=== PATIENT | male | born 1945 | race Caucasian/White ===

== ENCOUNTER 2020-11-11 08:47 | Outpatient (CLI) | payer OTHER, SELFPAY ==
[2020-11-11 09:27] VITALS: BMI 25.7
--- NOTE | 2020-11-11 09:38 | ECG_ITS ---
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 Interpretive Statements NAME OF STUDY: DOBUTAMINE SESTAMIBI STRESS TEST INDICATION: Shortness of Breath, PROCEDURE: At the baseline, the blood pressure was 149/51 with a heart rate of 96. The electrocardiogram showed normal sinus rhythm with a poor R wave progression. Normal ST Ts. The dobutamine was infused over a period of 6 minutes and 22 seconds. The maximum heart rate obtained was 132 (91% of the maximum predicted heart rate). The blood pressure at that time was 142/58 mmHg. The patient did not have any chest pain or any significant electrocardiogram changes with the dobutamine infusion. The physical examination remained unchanged. No arrhythmias were seen on the monitor. The sestamibi was injected at the peak heart rate. During the recovery phase, the patient did not have any specific symptoms. The blood pressure at the end of the recovery phase was 132/78 with a heart rate of 83 per minute. CONCLUSION: 1. Normal EKG response to be doing fusion 2. No diabetes induced chest pain or cardiac arrhythmia 3. Appropriate blood pressure and heart rate response to dobutamine infusion 4. Sestamibi/Sestamibi perfusion scan pending; see separate report. Electronically Signed On 11-13-2020 0:31:32 CDT by Jaycob Ramos M.D. [id number]
--- NOTE | 2020-11-11 09:38 | NMCV_ITS ---
NM tom perf SPECT r/s* [id number] Gamal Forrester Age: 75 Gender: M : 1945 Exam Date: 11/11/2020 10:22 Ordering Phys: Jaycob Ramos MD ([email or web address]) Technologist: KAYLEY Nelson Exam Location: [facility] Indications: SHORTNESS OF BREATH STRESS TEST Please see separate stress test report in [facility]any for full findings IMAGE PROTOCOL Rest/Stress 1 Dobutamine Day Radiopharmaceutical Dose (mCi) Administration Site Administered by Rest: Tc-99m 10.7 IV KAYLEY Melton Sestamibi Stress:Tc-99m 32.4 IV KAYLEY Melton Sestamibi Rest: 11-Nov-2020 60 Discovery 630 Stress: 11-Nov-2020 30 Discovery 630 Radiopharmaceutical was injected at 86 % maximum heart rate. Supine position only as patient was unable to lay prone. SPECT RESULTS Technical Quality: Good Raw Data Analysis: Normal, breathing motion Image Corrections: Patient motion artifact - motion correction applied to rest and stress images. Summed Stress Score: 8 Summed Rest Score: 8 Summed Difference Score: 1 PERFUSION FINDINGS Moderate area of moderate decreases uptake in the mid and apical inferior, inferoseptal, apical septal and LV apex. No significant reversibility was noted in these regions. FUNCTIONAL RESULTS (calculated via Gated SPECT) Stress Image LV EF (%): 61 Stress EDV (mL):72 TID: 1.23 Stress ESV (mL):28 FUNCTIONAL FINDINGS: Segmental wall motion analysis revealing no gross wall motion normalities. Elevated transient ischemic dilatation ratio of 1.23. IMPRESSIONS 1. Myocardial perfusion imaging revealing moderate area of persistent decreased tracer uptake in the inferior, inferoseptal and apical regions suggestive of myocardial scarring versus attenuation artifact. 2. Normal LV ejection fraction of 61%. 3. LV wall motion analysis revealing no gross wall motion normalities. 4. Normal LV volume. 5. Elevated transient ischemic dilatation ratio may suggest endocardial ischemia. However the positive predictive value of this finding is limited. Clinical correlation recommended. No similar previous studies are available for comparison Dr Jaycob Ramos MD [facility] (Electronically Signed) Final Date: 11 November 2020 16:48 S
[2020-11-11] MEDS: DOBUTtamine 200 MG in sodium chloride 0.9% 34 ML 13 MG IV (11:49)
--- NOTE | 2020-11-11 11:56 | USCV_ITS ---
Gamal Forrester Age: 75 Gender: M : 1945 Exam Date: 11/11/2020 12:52 Ordering Phys: Jaycob Ramos MD ([email or web address]) Technologist: JOYCE Exam Location: [facility] Indication: SOB BP: 171 / 102 HR: 60 Rhythm: Sinus Technical Quality: Technically difficult study MEASUREMENTS (Male / Female) Normal Values 2D ECHO LV Diastolic Diameter PLAX 3.7 cm 4.2 - 5.9 / 3.9 - 5.3 cm LV Systolic Diameter PLAX 2.6 cm IVS Diastolic Thickness 0.8 cm 0.6 - 1.0 / 0.6 - 0.9 cm IVS Systolic Thickness 1.2 cm LVPW Diastolic Thickness 1.0 cm 0.6 - 1.0 / 0.6 - 0.9 cm LVPW Systolic Thickness 1.5 cm LVOT Diameter 2.0 cm LV Ejection Fraction 2D Teich 58.0 % LV Ejection Fraction MOD 2C 47.7 % LV Ejection Fraction 2C AL 48.7 % LA Width 3.7 cm LA Height 3.3 cm RA Width 4.0 cm RA Height 4.0 cm Aorta at Sinotubular Diameter 2.6 cm DOPPLER AV Peak Velocity 93.0 cm/s LVOT Peak Velocity 68.0 cm/s AV Area Cont Eq vti 2.4 cm squared AV Area Cont Eq pk 2.4 cm squared MV Peak Velocity 606.0 cm/s MV Area PHT 4.3 cm squared Mitral E to A Ratio 0.8 MV E' Velocity 35.0 cm/s Mitral E to MV E' Ratio 6.7 Mitral E to LV E' Lateral Ratio 6.0 Mitral E to LV E' Septal Ratio 7.7 TR Peak Velocity 119.3 cm/s TR Peak Gradient 5.7 mmHg Right Atrial Pressure 3.0 mmHg Pulmonary Artery Systolic Pressu 8.7 mmHg PV Peak Velocity 58.0 cm/s FINDINGS Left Ventricle Normal in size with diminished ejection fraction of 48%. mild diffuse hypokinesia of the LV apex.Grade I/IV diastolic dysfunction (abnormal relaxation filling pattern), normal to mildly elevated filling pressures. Right Ventricle The right ventricle is normal in size and function. Right Atrium The right atrium is normal in size. Left Atrium The left atrium is normal in size. Mitral Valve Thickened mitral valve. Trace mitral valve regurgitation. Aortic Valve No gross abnormalities noted Tricuspid Valve No gross abnormalities noted Pulmonic Valve Pulmonic valve not well visualized. Pericardium Normal pericardium without effusion. Aorta Normal ascending aorta dimension. CONCLUSIONS Normal in size with diminished ejection fraction of 48%. mild diffuse hypokinesia of the LV apex. Grade I/IV diastolic dysfunction (abnormal relaxation filling pattern), normal to mildly elevated filling pressures. Thickened mitral valve. Trace mitral valve regurgitation. There is no pericardial effusion. There are no intracardiac masses. No previous study is available for comparison. Dr Jaycob Ramos MD [facility] (Electronically Signed) Final Date: 11 November 2020 23:41 S
[2020-11-11] MEDS: metoprolol tartrate 1 mg/1 mL SDV 5 mL 5 MG IV (12:01)
[2020-11-11 12:19] VITALS: BP 132/78; PULSE 84
== END 2020-11-11 08:48 | disposition home or self-care (01) ==
PROVIDERS: PCP Family Medicine; Visit Provider Internal Medicine Cardiovascular Disease
DX: R06.02 Shortness of breath (principal); I05.9 Rheumatic mitral valve disease, unspecified
CPT/HCPCS: 78452; 93017; 93306; A9500; J1250; J3490; J7050

== ENCOUNTER → 2020-12-08 14:49 | Outpatient (BNVA) | payer OTHER, SELFPAY | PROVIDERS: PCP Family Medicine; Visit Provider Internal Medicine Cardiovascular Disease | DX: R06.02 Shortness of breath (principal); N18.9 Chronic kidney disease, unspecified; I50.33 Acute on chronic diastolic (congestive) heart failure; Z79.01 Long term (current) use of anticoagulants; E78.2 Mixed hyperlipidemia; I13.0 Hypertensive heart and chronic kidney disease with heart failure and stage 1 through stage 4 chronic kidney disease, or unspecified chronic kidney disease | CPT/HCPCS: 80048; 83880; 84443; 85025 ==

== ENCOUNTER 2021-01-29 01:23 | Inpatient (IN) | payer OTHER, MEDICARE, SELFPAY ==
[2021-01-29] VITALS (36 sets, daily range): BP systolic 78–173; BP diastolic 55–138; PULSE 89–160; RESP 12–40; TEMP 36.5–36.6; O2SAT 90–100; BMI 23.0; BMI 25.1
--- NOTE | 2021-01-29 01:25 | ECG_ITS ---
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 Measurements Intervals [place] Rate: 143 P: 79 MD: 130 QRS: 78 QRSD: 93 T: 76 QT: 286 QTc: 441 Interpretive Statements SINUS TACHYCARDIA No previous ECG available for comparison Electronically Signed On 01-29-2021 19:47:34 CARPENTER MATE by Tree Couch M.D. [id number]
--- NOTE | 2021-01-29 01:25 | XRR_ITS ---
PROCEDURE INFORMATION: Exam: XR Chest Exam date and time: 01/29/2021 1:25 AM Age: 75 years old Clinical indication: Cough and shortness of breath and tachypnea; Patient HX: Resp distress. History of copd. On bipap. ; Additional info: SOB TECHNIQUE: Imaging protocol: XR of the chest. Views: 1 view. COMPARISON: CR Chest 2 views* [id number] 08/04/2018 3:56 PM FINDINGS: Lungs: There is a background of emphysema and pulmonary fibrosis. There are patchy opacities present in the right hemithorax peripherally and some increased linear opacities present in the lower hemithoraces, findings that could represent a superimposed interstitial pneumonia. Pleural spaces: Unremarkable. No pleural effusion. No pneumothorax. Heart/Mediastinum: Unremarkable. No cardiomegaly. Bones/joints: Unremarkable. XR/XR chest 1V portable [id number] IMPRESSION: 1. There is a background of emphysema and pulmonary fibrosis. 2. There are increased patchy opacity seen in the right hemithorax peripherally and within the lower hemithoraces, findings that could represent a superimposed interstitial pneumonia. Radiation Dose CTDIVOL = (mGy): DLP = (mGy-cm)
--- NOTE | 2021-01-29 01:27 | W.ED.SOB ---
HPI - SOB/Dyspnea General: Chief Complaint: Shortness of Breath/Dyspnea Stated Complaint: SOB Time Seen by Provider: 01/29/21 01:25 Source: patient and EMS Mode of arrival: EMS Limitations: no limitations History of Present Illness: HPI Narrative: Is a history of COPD along with congestive heart failure comes in by EMS for respiratory distress. He has been out of some of his medications he is unsure what. Patient here is in severe distress with tachypnea wheezing. Patient is currently on a nonrebreather will switch him over to BiPAP. He is able to speak in 2-3 word sentences due to distress he denies any cough or fever denies any chest pain. No vomiting diarrhea denies any worsening improving factors he got Solu-Medrol and breathing treatments in route with minimal improvement. Associated symptoms: Deny abdominal pain, chest pain, fever(s), nausea or vomiting Review of Systems Const: Denies: fever(s), chills, body aches or change in appetite Eyes: Denies: blurry vision or eye discomfort ENMT: Denies: throat pain or dental pain Card: Denies: chest pain Resp: Reports: dyspnea and non-productive cough GI: Denies: abdominal pain, nausea, vomiting or diarrhea : Denies: dysuria Musc: Denies: neck pain or back pain Skin/Breast: Denies: rash Neuro: Denies: headache(s) Psych: Denies: depression Philipp/Lymph: Denies: easy bruising All/Imm: Denies: urticaria PFSH ED PFSH: Medical History Bipolar 1 disorder Chest pain Chronic obstructive pulmonary disease Dependence on supplemental oxygen Erectile dysfunction HTN (hypertension) Hyperlipidemia ARPIT (obstructive sleep apnea) Painful ejaculation Scrotal pain Sleep apnea Tachycardia Surgical History Hx of appendectomy Family History Mother , AT AGE 64 Cancer Diabetes Grandfather Diabetes Father , AT AGE 94 Lung disease Social History Quit status (tobacco): has quit using tobacco Year quit tobacco: 2002 Former quit date comment: Hx of 2 PPD x 50 Years Smoking risk assessment/counseling performed?: No Alcohol intake: former Counseling given: No Counseling given: No Lives independently: Yes Marital status: / service: Yes Current occupational status: retired History of recent travel: No Physical Exam Const: COMMON NORMALS: patient oriented x3 GENERAL APPEARANCE: in distress and ill appearing HENMT: COMMON NORMALS: normocephalic and atraumatic HEAD & SCALP: normocephalic and atraumatic Eye: COMMON NORMALS: Equal, round and reactive pupils present and EOMs intact bilaterally PUPIL: Yes Equal, round and reactive pupils present Neck/C-Spine: COMMON NORMALS: full ROM and supple Chest: COMMONS NORMALS: normal inspection of the chest and normal palpation of entire chest wall Resp: EFFORT & INSPECTION: Yes tachypneic and Yes respiratory distress AUSCULTATION: wheezes Cardio: COMMON NORMALS: regular rhythm and No murmurs present (Cardio) RATE: tachycardic RHYTHM: regular rhythm GI: COMMON NORMALS: Normal to inspection, nondistended, normoactive bowel sounds present, Soft to palpation, non-tender and no masses PALPATION: Yes Soft to palpation Extremity: COMMON NORMALS: normal to inspection and full ROM Neuro: COMMON NORMALS: patient oriented x3, moves all extremities and no focal motor deficits Psych: COMMON NORMALS: mental status grossly normal, Normal thought process present and cooperative THOUGHT PROCESS: Normal thought process present Skin: COMMON NORMALS: no rashes or lesions noted and no wounds GENERAL SKIN EXAM: no rashes or lesions noted Course Vital Signs: Vital signs: Vital Signs Temperature 97.8 F 01/29/21 01:28 Pulse Rate 140 H 01/29/21 02:03 Respiratory Rate 30 H 01/29/21 02:03 Blood Pressure 103/57 01/29/21 02:31 Pulse Oximetry 94 01/29/21 02:03 MDM - SOB/Dyspnea MDM Narrative: Medical decision making narrative: Patient presents here with shortness of breath distress. Patient also septic his blood pressure is improved. Heart rate improved as well lactate here is normal he does have a pneumonia and he is improved on BiPAP start patient antibiotics I spoke to the hospitalist will admit. No signs of pulmonary embolism. Lab Data: Labs: Lab Results 01/29/21 01/29/21 01/29/21 01:35 01:35 01:35 WBC 17.1 10^3/uL H 10 ^3/uL (4.0-10.0) RBC 4.11 10^6/uL 10^6 /uL (4.1-5.3) Hgb 12.8 g/dL g/dL (11.7-16.6) Hct 39.3 % L % (42.0-52.0) MCV 95.6 fl H fl (80-94) MCH 31.1 pg pg (28.0-34.0) MCHC 32.6 g/dL g/dL (30.0-36.0) RDW 11.8 % L % (12.1-15.1) Plt Count 333 10^3/cmm 10^3 /cmm (130-400) MPV 9.3 fL fL (7.4-10.4) Neut % (Auto) 67.6 % % Lymph % (Auto) 18.2 % % Burnett % (Auto) 11.9 % % Eos % (Auto) 1.1 % % Baso % (Auto) 0.4 % % Neut # (Auto) 11.57 10^3/uL H 1 0^3/uL (1.8-7.7) Lymph # (Auto) 3.1 10^3/uL 10^3/ uL (0.8-4.8) Burnett # (Auto) 2.0 10^3/uL H 10^ 3/uL (0.2-0.9) Eos # (Auto) 0.2 10^3/uL 10^3/ uL (0.0-0.8) Baso # (Auto) 0.1 10^3/uL 10^3/ uL (0.0-0.1) Nucleated RBC % (a uto) 0 % % Nucleated RBCs # 0.0 /100WBC /100W BC PT 14.60 SECONDS SEC ONDS (12.1-14.9) INR 1.11 (0.8-1.2) D-Dimer Specimen Type Sample Site ABG pH ABG pCO2 ABG pO2 ABG HCO3 ABG Base Excess Jaxson Test Hematocrit Hgb O2 Saturation Carboxyhemoglobin Methemoglobin Total Hemoglobin O2 Delivery Device FiO2 PEEP Provisioning Analyst ID Sodium 136 mmol/L mmol/L (136-145) Potassium 4.8 mmol/L mmol/L (3.5-5.1) Chloride 94 mmol/L L mmol/ L (98-107) Carbon Dioxide 23 mmol/L mmol/L (22-29) Anion Gap 23.8 H (5-19) BUN 16 mg/dL mg/dL (8-23) Creatinine 1.0 mg/dL mg/dL (0.7-1.2) GFR Calculation Not Reportable Glucose 133 mg/dL H mg/dL (65-115) Calculated Osmolal ity 285 mOsm/kg mOsm/ kg (285-295) Lactic Acid Calcium 9.1 mg/dL mg/dL (8.5-10.5) Total Bilirubin 0.4 mg/dL mg/dL (0.15-1.2) AST 18 U/L U/L (0-40) ALT 12 U/L U/L (0-41) Alkaline Phosphata se 107 IU/L IU/L (40-130) Troponin T Baselin e NT-Pro-B Natriuret Pep 209 pg/mL pg/mL (0-450) Total Protein 8.0 g/dL g/dL (6.6-8.7) Albumin 3.8 g/dL g/dL (3.5-5.2) Globulin 4.2 g/dL g/dL (1.3-4.6) SARS-CoV-2 Ag (Rap id) 01/29/21 01/29/21 01/29/21 01:35 01:35 01:35 WBC RBC Hgb Hct MCV MCH MCHC RDW Plt Count MPV Neut % (Auto) Lymph % (Auto) Burnett % (Auto) Eos % (Auto) Baso % (Auto) Neut # (Auto) Lymph # (Auto) Burnett # (Auto) Eos # (Auto) Baso # (Auto) Nucleated RBC % (a uto) Nucleated RBCs # PT INR D-Dimer 3.17 ug/mIFEU H u g/mIFEU (0-0.59) Specimen Type Sample Site ABG pH ABG pCO2 ABG pO2 ABG HCO3 ABG Base Excess Jaxson Test Hematocrit Hgb O2 Saturation Carboxyhemoglobin Methemoglobin Total Hemoglobin O2 Delivery Device FiO2 PEEP Provisioning Analyst ID Sodium Potassium Chloride Carbon Dioxide Anion Gap BUN Creatinine GFR Calculation Glucose Calculated Osmolal ity Lactic Acid 1.5 mmol/L mmol/L (0.5-2.2) Calcium Total Bilirubin AST ALT Alkaline Phosphata se Troponin T Baselin e 24 ng/L H ng/L (0-15) NT-Pro-B Natriuret Pep Total Protein Albumin Globulin SARS-CoV-2 Ag (Rap id) 01/29/21 01/29/21 01:37 01:50 WBC RBC Hgb Hct MCV MCH MCHC RDW Plt Count MPV Neut % (Auto) Lymph % (Auto) Burnett % (Auto) Eos % (Auto) Baso % (Auto) Neut # (Auto) Lymph # (Auto) Burnett # (Auto) Eos # (Auto) Baso # (Auto) Nucleated RBC % (a uto) Nucleated RBCs # PT INR D-Dimer Specimen Type Arterial Sample Site Radial, left ABG pH 7.37 (7.35-7.45) ABG pCO2 38.3 mmHg mmHg (35-45) ABG pO2 289.0 mmHg H mmHg (80.0-100.0) ABG HCO3 22.2 mmol/L mmol/ L (22-26) ABG Base Excess -2.7 mmol/L L mmo l/L (-2.0-2.0) Jaxson Test Pos Hematocrit 43.3 % % (42-52) Hgb O2 Saturation 98.5 % % (95-100) Carboxyhemoglobin 0.4 %THgb %THgb (0.4-20.1) Methemoglobin 1.0 % % (0.4-1.5) Total Hemoglobin 14.1 g/dL g/dL (14-18) O2 Delivery Device Bipap FiO2 70.0 % % PEEP 8.0 cmH20 cmH20 Provisioning Analyst ID [email or web address] Sodium Potassium Chloride Carbon Dioxide Anion Gap BUN Creatinine GFR Calculation Glucose Calculated Osmolal ity Lactic Acid Calcium Total Bilirubin AST ALT Alkaline Phosphata se Troponin T Baselin e NT-Pro-B Natriuret Pep Total Protein Albumin Globulin SARS-CoV-2 Ag (Rap id) Negative (Negative) Imaging Data^: CT Chest: Attestation: I personally reviewed and interpreted this imaging study as follows: Radiologist's impression: [address] [address] [address] Scan Report Signed Patient: Gamal Forrester Unit #: [id number] : 1945 Age/Sex: 75 / M ADM Date: 01/29/21 Loc: ER Room/Bed: Attending Dr: Ordering Provider/Ordering MD: Romain Yan MD Date of Service: 01/29/21 Procedure(s): CT angio chest PE protcl [id number] Accession Number(s): [id number] Report Number: [id number] PROCEDURE INFORMATION: Exam: CTA Chest With Contrast Exam date and time: 01/29/2021 2:35 AM Age: 75 years old Clinical indication: Cough and dyspnea and shortness of breath; Patient HX: Cough with SOB and dyspnea. Elevated d dimer. History of copd. Best exam obtained due to patient unable to bring arms above sfov and difficulty following breathing instructions. TECHNIQUE: Imaging protocol: Computed tomographic angiography of the chest with contrast. 3D rendering (Not supervised by radiologist): MIP and/or 3D reconstructed images were created by the technologist. Radiation optimization: All CT scans at this facility use at least one of these dose optimization techniques: automated exposure control; mA and/or kV adjustment per patient size (includes targeted exams where dose is matched to clinical indication); or iterative reconstruction. Contrast material: OMNI 350; Contrast volume: 65 ml; Contrast route: INTRAVENOUS (IV); COMPARISON: CR (CHEST, ) 01/29/2021 1:33 AM RADIATION DOSE METRICS: Total DLP (mGy-cm): 778.77 FINDINGS: Pulmonary arteries: Normal. No pulmonary emboli. Aorta: Calcifications are seen within the thoracic and abdominal aorta. Lungs: A 6 mm calcified granuloma seen in the left lower lobe anteriorly. There is a background of centrilobular emphysema and mild pulmonary fibrosis. There are patchy opacity seen at the periphery of the right upper lobe, findings that may represent right upper lobe pneumonia. Pleural spaces: Unremarkable. No pneumothorax. No pleural effusion. Heart: Unremarkable. No cardiomegaly. No pericardial effusion. Lymph nodes: Unremarkable. No enlarged lymph nodes. Gallbladder and bile ducts: The hyperdensities are seen within the gallbladder neck possibly representing tiny gallstones or gallbladder sludge. Kidneys and ureters: A hypoattenuation cystic mass seen on the posterior aspect of the left kidney measuring 3.2 cm. There is a 3.2 mm nonobstructing left renal calculus seen in the lower pole. Bones/joints: Unremarkable. No acute fracture. Soft tissues: Unremarkable. CT/CT angio chest PE protcl [id number] IMPRESSION: 1. Background of centrilobular emphysema and mild pulmonary fibrosis. Patchy peripheral opacities are seen in the right upper lobe, findings suggesting a right upper lobe pneumonia. 2. Calcified 6 mm granuloma in the left lower lobe. 3. Nonobstructing 3.2 mm left renal calculus. 4. Benign cyst of the left kidney measuring 3.2 cm. No further workup needed. 5. Hyperdense material seen in the gallbladder neck may represent tiny gallstones or gallbladder sludge. COMMENTS: Consistent with the [employer]'s Incidental Findings Committee white paper (J Am Triston Radiol 2018): Any incidental renal lesion less than 1 cm or classified as too small to characterize, or any incidental cystic renal lesion characterized as simple-appearing, is likely benign. No follow-up imaging is recommended for these lesions per consensus recommendations based on imaging criteria. Radiation Dose CTDIVOL = (mGy): DLP = 778.77 (mGy-cm) Dictated By: Donny Schmitt MD Signed By: Donny Schmitt MD Signed Date/Time: 01/29/21 0418 DD/ EKG Data^: EKG 1: Attestation: I personally reviewed and interpreted this EKG as follows: EKG Interpretation Date: 02/24/21 EKG interpretation time: 01:49 Interpretation: sinus tch hr [address] or t wave abnormalities qrs 93qtc 369 Discharge Plan Discharge Patient Disposition: Admitted As Inpatient Clinical Impression: Community acquired pneumonia Qualifiers: Laterality: right Lung location: unspecified part of lung Qualified Code(s): J18.9 - Pneumonia, unspecified organism Condition: Stable Coding Level of Care Code ED Manager Vehicle for Chg Fwd Exam Comprehensive
[2021-01-29 01:41] LABS: Basophils # 0.1 10^3/uL (0.0-0.1); Basophils % 0.4 %; Eosinophils # 0.2 10^3/uL (0.0-0.8); Eosinophils % 1.1 %; Hematocrit 39.3 % (42.0-52.0); Hemoglobin 12.8 g/dL (11.7-16.6); Lymphocytes # 3.1 10^3/uL (0.8-4.8); Lymphocytes % 18.2 %; Mean Corpuscular HGB Conc 32.6 g/dL (30.0-36.0); Mean Corpuscular Hemoglobin 31.1 pg (28.0-34.0); Mean Corpuscular Volume 95.6 fl (80-94); Mean Platelet Volume 9.3 fL (7.4-10.4); Monocytes % 11.9 %; Neutrophils # 11.57 10^3/uL (1.8-7.7); Neutrophils % 67.6 %; Nucleated Red Blood Cells % 0 %; Platelet Count 333 10^3/cmm (130-400); Red Blood Count 4.11 10^6/uL (4.1-5.3); Red Cell Distribution Width 11.8 % (12.1-15.1); White Blood Count 17.1 10^3/uL (4.0-10.0)
[2021-01-29 01:48] LABS: ABG PCO2 38.3 mmHg (35-45); ABG PH Result 7.37 (7.35-7.45); Arterial Blood Gas Hematocrit 43.3 % (42-52); Base Excess ABG -2.7 mmol/L (-2.0-2.0); Blood Gas Allen Test Pos; Blood Gas Sample Type Arterial; Carboxyhemoglobin 0.4 %THgb (0.4-20.1); HCO3 ABG 22.2 mmol/L (22-26); HGB O2 Sat 98.5 % (95-100); Total Hemoglobin 14.1 g/dL (14-18)
[2021-01-29 01:50] LABS: Blood Gas Sample Site Radial, left; Oxygen Device BIPAP
[2021-01-29 01:55] LABS: INR 1.11 (0.8-1.2)
[2021-01-29 02:15] LABS: Alanine Aminotransferase 12 U/L (0-41); Albumin Level 3.8 g/dL (3.5-5.2); Alkaline Phosphatase 107 IU/L (40-130); Anion Gap 23.8 (5-19); Aspartate Amino Transferase 18 U/L (0-40); Blood Urea Nitrogen 16 mg/dL (8-23); Calcium 9.1 mg/dL (8.5-10.5); Carbon Dioxide 23 mmol/L (22-29); Chloride 94 mmol/L (98-107); Globulin 4.2 g/dL (1.3-4.6); Glucose 133 mg/dL (65-115); NT Pro B Type Natriuretic Pept 209 pg/mL (0-450); Osmolality Calculated 285 mOsm/kg (285-295); Potassium 4.8 mmol/L (3.5-5.1); Sodium 136 mmol/L (136-145); Total Bilirubin 0.4 mg/dL (0.15-1.2)
[2021-01-29] MEDS: sodium chloride 0.9% 1,000 ML 999 ML IV ×2 (02:22→03:15)
--- NOTE | 2021-01-29 02:26 | ECG_ITS ---
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 Measurements Intervals [place] Rate: 114 P: 76 NH: 128 QRS: 66 QRSD: 93 T: 77 QT: 319 QTc: 440 Interpretive Statements SINUS TACHYCARDIA ABNORMAL RHYTHM ECG Compared to ECG 01/29/2021 01:49:32 No significant changes Electronically Signed On 01-29-2021 19:46:25 TANNERY GUMMER by Tree Couch M.D. [email or web address] hospital for women [email or web address] infantsMarquitrihealth good samaritan hospitalIschemia Care/store/OM/[id number]
[2021-01-29 02:27] LABS: D Dimer 3.17 ug/mIFEU (0-0.59)
[2021-01-29 02:34] LABS: Lactic Sepsis W/Reflex 1.5 mmol/L (0.5-2.2)
[2021-01-29 02:34] LABS: SARS Covid-2 Antigen Negative (Negative)
--- NOTE | 2021-01-29 02:35 | CTR_ITS ---
PROCEDURE INFORMATION: Exam: CTA Chest With Contrast Exam date and time: 01/29/2021 2:35 AM Age: 75 years old Clinical indication: Cough and dyspnea and shortness of breath; Patient HX: Cough with SOB and dyspnea. Elevated d dimer. History of copd. Best exam obtained due to patient unable to bring arms above sfov and difficulty following breathing instructions. TECHNIQUE: Imaging protocol: Computed tomographic angiography of the chest with contrast. 3D rendering (Not supervised by radiologist): MIP and/or 3D reconstructed images were created by the technologist. Radiation optimization: All CT scans at this facility use at least one of these dose optimization techniques: automated exposure control; mA and/or kV adjustment per patient size (includes targeted exams where dose is matched to clinical indication); or iterative reconstruction. Contrast material: OMNI 350; Contrast volume: 65 ml; Contrast route: INTRAVENOUS (IV); COMPARISON: CR (CHEST, ) 01/29/2021 1:33 AM RADIATION DOSE METRICS: Total DLP (mGy-cm): 778.77 FINDINGS: Pulmonary arteries: Normal. No pulmonary emboli. Aorta: Calcifications are seen within the thoracic and abdominal aorta. Lungs: A 6 mm calcified granuloma seen in the left lower lobe anteriorly. There is a background of centrilobular emphysema and mild pulmonary fibrosis. There are patchy opacity seen at the periphery of the right upper lobe, findings that may represent right upper lobe pneumonia. Pleural spaces: Unremarkable. No pneumothorax. No pleural effusion. Heart: Unremarkable. No cardiomegaly. No pericardial effusion. Lymph nodes: Unremarkable. No enlarged lymph nodes. Gallbladder and bile ducts: The hyperdensities are seen within the gallbladder neck possibly representing tiny gallstones or gallbladder sludge. Kidneys and ureters: A hypoattenuation cystic mass seen on the posterior aspect of the left kidney measuring 3.2 cm. There is a 3.2 mm nonobstructing left renal calculus seen in the lower pole. Bones/joints: Unremarkable. No acute fracture. Soft tissues: Unremarkable. CT/CT angio chest PE protcl [id number] IMPRESSION: 1. Background of centrilobular emphysema and mild pulmonary fibrosis. Patchy peripheral opacities are seen in the right upper lobe, findings suggesting a right upper lobe pneumonia. 2. Calcified 6 mm granuloma in the left lower lobe. 3. Nonobstructing 3.2 mm left renal calculus. 4. Benign cyst of the left kidney measuring 3.2 cm. No further workup needed. 5. Hyperdense material seen in the gallbladder neck may represent tiny gallstones or gallbladder sludge. COMMENTS: Consistent with the [employer]'s Incidental Findings Committee white paper (J Am Triston Radiol 2018): Any incidental renal lesion less than 1 cm or classified as too small to characterize, or any incidental cystic renal lesion characterized as simple-appearing, is likely benign. No follow-up imaging is recommended for these lesions per consensus recommendations based on imaging criteria. Radiation Dose CTDIVOL = (mGy): DLP = 778.77 (mGy-cm)
[2021-01-29 02:49] LABS: Troponin(5th) Baseline 24 ng/L (0-15)
[2021-01-29] MEDS: piperacillin-tazobactam 3.375 GM in sodium chloride 0.9% (plus) 50 ML IV ×3 (03:16→20:48)
[2021-01-29] MEDS: iohexol 350 mg/mL 100 mL Btl IV (04:03)
[2021-01-29] MEDS: vancomycin 1,000 MG in sodium chloride 0.9% 250 ML 250 MG IV (04:06)
[2021-01-29 04:42] LABS: Troponin 5 2HR 107.8 ng/L (0-15); Troponin 5 2HR Delta 83.8 ABS# (0-10)
[2021-01-29] MEDS: enoxaparin 80 mg/0.8 mL Syringe 70 MG SUBCUT ×2 (05:00→17:47)
[2021-01-29] MEDS: sodium chloride 0.9% 500 ML 999 ML IV (05:00)
--- NOTE | 2021-01-29 05:14 | P.HP_ITS ---
Providers/Chief Complaint Primary Care Provider: Willow Plasencia MD Chief Complaint: SOB History of Present Illness Gamal Forrester is a 75 year old male with past medical history of COPD, interstitial lung disease/fibrosis, CHF, hypertension, sleep apnea who is presenting to emergency room with complaints of increased shortness of breath, cough productive with yellow mucus for last several days, progressively worsening. He describes his symptoms as severe. Not sure about fever. Denies chills. No nausea or vomiting. Reports similar episodes in the past. The patient is found to have a right upper lobe pneumonia. Due to significant respiratory distress and hypoxia the patient is started on BiPAP. Reports some improvement. On review of systems also he reports rash covering his chest and abdomen. It is not itchy or painful. No diarrhea or dysuria. Covid test is negative Review of Systems General: Reports: 10 or more systems reviewed and unremarkable except in HPI and below Medications/Allergies Home Medications Medication Instructions Recorded Confirmed Last Taken Type albuterol (refill) 90 mcg INHALATION .PRN 08/19/19 11/03/20 Unknown History mcg/actuation aerosol inhaler omega 8-glm-tsp-fish oil 1,000 mg 1 cap PO DAILY 08/19/19 11/03/20 Unknown History (120 mg-180 mg) capsule atorvastatin 40 mg tablet 40 mg PO DAILY 09/15/20 11/03/20 Unknown History carbamazepine 200 mg tablet 600 mg PO BID tab 09/15/20 11/03/20 Unknown History lisinopril 40 mg tablet 20 mg PO DAILY tab 09/15/20 11/03/20 Unknown History tiotropium 2.5 mcg-olodaterol 2.5 2 puff INHALATION DAILY 09/15/20 11/03/20 Unknown History mcg/actuation mist for inhalation albuterol sulfate 2.5 mg INHALATION Q4H PRN 09/16/20 11/03/20 Unknown History multivitamin 1 tab PO DAILY 09/23/20 11/03/20 Unknown History cetirizine 10 mg tablet 10 mg PO DAILY PRN 11/03/20 11/03/20 Unknown History hydrocodone 10 mg-acetaminophen 1 tab PO Q6H PRN 11/03/20 11/03/20 Unknown History 325 mg tablet mecobalamin (vitamin B12) 1,000 1,000 mcg PO DAILY 11/03/20 11/03/20 Unknown History mcg chewable tablet oxybutynin chloride 5 mg tablet 5 mg PO DAILY 11/03/20 11/03/20 Unknown History sildenafil 100 mg tablet 100 mg PO DAILY PRN #20 tab 11/03/20 11/03/20 Unknown Rx vitamin E (dl, acetate) 180 mg 45 mg PO DAILY 11/03/20 11/03/20 Unknown History (400 unit) capsule Allergies Allergy/AdvReac Type Severity Reaction Status Date / Time levofloxacin [From Levaquin] Allergy Severe Unknown Verified 12/08/20 09:15 azithromycin Allergy Intermediate rash Verified 12/08/20 09:15 shrimp Allergy Intermediate rash Verified 12/08/20 09:15 PFSH Acute PFSH: Medical History Bipolar 1 disorder Chest pain Chronic obstructive pulmonary disease Dependence on supplemental oxygen Erectile dysfunction HTN (hypertension) Hyperlipidemia ARPIT (obstructive sleep apnea) Painful ejaculation Scrotal pain Sleep apnea Tachycardia Surgical History Hx of appendectomy Family History Mother , AT AGE 64 Cancer Diabetes Grandfather Diabetes Father , AT AGE 94 Lung disease Social History Quit status (tobacco): has quit using tobacco Year quit tobacco: 2002 Former quit date comment: Hx of 2 PPD x 50 Years Smoking risk assessment/counseling performed?: No Alcohol intake: former Counseling given: No Counseling given: No Lives independently: Yes Marital status: / service: Yes Current occupational status: retired History of recent travel: No Vitals/I&O/Wt Last Vital Signs Temp 97.8 F 01/29/21 01:28 Pulse 113 H 01/29/21 04:37 Resp 22 H 01/29/21 04:37 BP 151/68 01/29/21 04:37 Pulse Ox 97 01/29/21 04:37 01/28/21 01/28/21 01/29/21 14:59 22:59 06:59 Intake Total 1050 / 1050 Balance 1050 / 1050 Weight last 48 hrs Weight 74.843 kg Physical Exam Narrative: EXAM NARRATIVE: The patient is awake alert and oriented. Looks very tired. Moderate distress with BiPAP. Responses are adequate. Mood is appropriate. Skin is warm and dry. Dry mucous membranes. Eyes PERRL, extraocular muscles are intact. No icterus. Neck supple. No JVD Lungs bilateral diffuse wheezes. Right-sided crackles are present. Tachypnea. Heart S1, S2, regular tachycardia Abdomen soft, obese, nontender, bowel sounds are present. Maculopapular symmetric rash is present on the trunk and abdomen. Extremities trace to 1+ pitting edema. No cyanosis no calf tenderness bilaterally Neuro examination is nonfocal. Data : 01/29/21 01:35 01/29/21 01:35 Other Labs: Laboratory Results WBC 17.1 10^3/uL (4.0-10.0) H 01/29/21 01:35 RBC 4.11 10^6/uL (4.1-5.3) 01/29/21 01:35 Hgb 12.8 g/dL (11.7-16.6) 01/29/21 01:35 Hct 39.3 % (42.0-52.0) L 01/29/21 01:35 MCV 95.6 fl (80-94) H 01/29/21 01:35 MCH 31.1 pg (28.0-34.0) 01/29/21 01:35 MCHC 32.6 g/dL (30.0-36.0) 01/29/21 01:35 RDW 11.8 % (12.1-15.1) L 01/29/21 01:35 Plt Count 333 10^3/cmm (130-400) 01/29/21 01:35 MPV 9.3 fL (7.4-10.4) 01/29/21 01:35 Neut % (Auto) 67.6 % 01/29/21 01:35 Lymph % (Auto) 18.2 % 01/29/21 01:35 [place] % (Auto) 11.9 % 01/29/21 01:35 Eos % (Auto) 1.1 % 01/29/21 01:35 Baso % (Auto) 0.4 % 01/29/21 01:35 Neut # (Auto) 11.57 10^3/uL (1.8-7.7) H 01/29/21 01:35 Lymph # (Auto) 3.1 10^3/uL (0.8-4.8) 01/29/21 01:35 [place] # (Auto) 2.0 10^3/uL (0.2-0.9) H 01/29/21 01:35 Eos # (Auto) 0.2 10^3/uL (0.0-0.8) 01/29/21 01:35 Baso # (Auto) 0.1 10^3/uL (0.0-0.1) 01/29/21 01:35 Nucleated RBC % (auto) 0 % 01/29/21 01:35 Nucleated RBCs # 0.0 /100WBC 01/29/21 01:35 PT 14.60 SECONDS (12.1-14.9) 01/29/21 01:35 INR 1.11 (0.8-1.2) 01/29/21 01:35 D-Dimer 3.17 ug/mIFEU (0-0.59) H 01/29/21 01:35 Specimen Type Arterial 01/29/21 01:37 Sample Site Radial, left 01/29/21 01:37 ABG pH 7.37 (7.35-7.45) 01/29/21 01:37 ABG pCO2 38.3 mmHg (35-45) 01/29/21 01:37 ABG pO2 289.0 mmHg (80.0-100.0) H 01/29/21 01:37 ABG HCO3 22.2 mmol/L (22-26) 01/29/21 01:37 ABG Base Excess -2.7 mmol/L (-2.0-2.0) L 01/29/21 01:37 Jaxson Test Pos 01/29/21 01:37 Hematocrit 43.3 % (42-52) 01/29/21 01:37 Hgb O2 Saturation 98.5 % (95-100) 01/29/21 01:37 Carboxyhemoglobin 0.4 %THgb (0.4-20.1) 01/29/21 01:37 Methemoglobin 1.0 % (0.4-1.5) 01/29/21 01:37 Total Hemoglobin 14.1 g/dL (14-18) 01/29/21 01:37 O2 Delivery Device Bipap 01/29/21 01:37 FiO2 70.0 % 01/29/21 01:37 PEEP 8.0 cmH20 01/29/21 01:37 Licensed Sales Assistant ID [email or web address] 01/29/21 01:37 Sodium 136 mmol/L (136-145) 01/29/21 01:35 Potassium 4.8 mmol/L (3.5-5.1) 01/29/21 01:35 Chloride 94 mmol/L (98-107) L 01/29/21 01:35 Carbon Dioxide 23 mmol/L (22-29) 01/29/21 01:35 Anion Gap 23.8 (5-19) H 01/29/21 01:35 BUN 16 mg/dL (8-23) 01/29/21 01:35 Creatinine 1.0 mg/dL (0.7-1.2) 01/29/21 01:35 GFR Calculation Not Reportable 01/29/21 01:35 Glucose 133 mg/dL (65-115) H 01/29/21 01:35 Calculated Osmolality 285 mOsm/kg (285-295) 01/29/21 01:35 Lactic Acid 1.5 mmol/L (0.5-2.2) 01/29/21 01:35 Calcium 9.1 mg/dL (8.5-10.5) 01/29/21 01:35 Total Bilirubin 0.4 mg/dL (0.15-1.2) 01/29/21 01:35 AST 18 U/L (0-40) 01/29/21 01:35 ALT 12 U/L (0-41) 01/29/21 01:35 Alkaline Phosphatase 107 IU/L (40-130) 01/29/21 01:35 Troponin T Baseline 24 ng/L (0-15) H 01/29/21 01:35 Troponin T 120 Minute 107.8 ng/L (0-15) H 01/29/21 04:00 Delta Troponin T 83.8 ABS# (0-10) H* 01/29/21 04:00 NT-Pro-B Natriuret Pep 209 pg/mL (0-450) 01/29/21 01:35 Total Protein 8.0 g/dL (6.6-8.7) 01/29/21 01:35 Albumin 3.8 g/dL (3.5-5.2) 01/29/21 01:35 Globulin 4.2 g/dL (1.3-4.6) 01/29/21 01:35 SARS-CoV-2 Ag (Rapid) Negative (Negative) 01/29/21 01:50 Impressions Chest X-Ray 01/29/21 01:25 IMPRESSION: 1. There is a background of emphysema and pulmonary fibrosis. 2. There are increased patchy opacity seen in the right hemithorax peripherally and within the lower hemithoraces, findings that could represent a superimposed interstitial pneumonia. Radiation Dose CTDIVOL = (mGy): DLP = (mGy-cm) Chest CTA 01/29/21 02:35 IMPRESSION: 1. Background of centrilobular emphysema and mild pulmonary fibrosis. Patchy peripheral opacities are seen in the right upper lobe, findings suggesting a right upper lobe pneumonia. 2. Calcified 6 mm granuloma in the left lower lobe. 3. Nonobstructing 3.2 mm left renal calculus. 4. Benign cyst of the left kidney measuring 3.2 cm. No further workup needed. 5. Hyperdense material seen in the gallbladder neck may represent tiny gallstones or gallbladder sludge. COMMENTS: Consistent with the [employer]'s Incidental Findings Committee white paper (J Am Triston Radiol 2018): Any incidental renal lesion less than 1 cm or classified as too small to characterize, or any incidental cystic renal lesion characterized as simple-appearing, is likely benign. No follow-up imaging is recommended for these lesions per consensus recommendations based on imaging criteria. Radiation Dose CTDIVOL = (mGy): DLP = 778.77 (mGy-cm) Micro: Microbiology 01/29/21 02:05 Blood Culture - Preliminary Blood SPECIMEN COLLECTED 01/29/21 02:15 Blood Culture - Preliminary Blood SPECIMEN COLLECTED A&P Assessment and plan (1) Community acquired pneumonia: Status: Acute Qualifiers: Laterality: right Lung location: unspecified part of lung Qualified Code(s): J18.9 - Pneumonia, unspecified organism (2) Acute respiratory failure: Status: Acute (3) Rash: Status: Acute (4) COPD with acute exacerbation: Status: Acute (5) Demand ischemia: Status: Acute Additional A&P Information 75-year-old male with past medical history of COPD, chronic respiratory failure, interstitial lung disease/fibrosis, CHF, hypertension presenting with dyspnea and cough. The patient is found to have COPD acute exacerbation secondary to right-sided pneumonia. His associated rash could be secondary to the infection. Blood cultures are obtained. The patient has mildly elevated troponin with significant delta elevation. EKG shows sinus tachycardia and no acute ischemic changes. Acute respiratory failure. He will go to ICU. We will continue BiPAP and supplemental oxygen. COPD acute exacerbation and right upper lobe pneumonia. He will receive IV steroids, respiratory treatments, Zosyn/vancomycin/doxycycline. Demand ischemia. We will continue his home Lipitor. Will order aspirin. We will continue monitoring troponin level. Rash could be due to the infection. A symptomatic now. We will continue monitoring. DVT prophylaxis. Lovenox. CODE STATUS. He wants to be full code. The plan of care was discussed with the patient. He verbalized understanding and agreement. Critical care time spent on this encounter is 55 minutes. Attestations Medical Necessity Statement*: Based on my assessment of patient's current condition, diagnosis and plan of care I expect that the patient will spend more than two midnights in the hospital. Coding Level of Care Code Acute Photonics Engineer for [facility] Diagnoses Community acquired pneumonia J18.9 Laterality: right Lung location: unspecified part of lung Acute respiratory failure J96.00 Rash R21 COPD with acute exacerbation J44.1 Demand ischemia I24.8
[2021-01-29] MEDS: lactated ringers 1,000 ML 75 ML IV ×2 (07:41→18:45)
[2021-01-29 08:08] LABS: Troponin 5 6HR 116.2 ng/L (0-15); Troponin 5 6HR Delta 92.2 ng/L (0-12)
--- NOTE | 2021-01-29 08:22 | USCV_ITS ---
Gamal Forrester Age: 75 Gender: M : 1945 Exam Date: 01/29/2021 10:00 Ordering Phys: Rachael Norwood MD Technologist: Jessy Masters Exam Location: [facility] [place] Indication: EVAL FOR DVT HISTORY: Lower extremity swelling. PROCEDURES: Venous duplex imaging was performed in bilateral lower extremities. The following venous structures were evaluated: common femoral vein, profunda vein, proximal portion of the greater saphenous vein, superficial femoral vein, and the popliteal vein. In addition, the posterior tibial and peroneal trunk were evaluated. Serial compression, augmentation maneuvers, and spectral Doppler flow evaluation were performed. FINDINGS: No evidence of DVT seen in any vessel visualized at this time. CONCLUSIONS No evidence of right lower extremity DVT. No evidence of left lower extremity DVT. Pablo Bojorquez MD (Electronically Signed) Final Date: 29 January 2021 17:30 S
--- NOTE | 2021-01-29 08:26 | ECG_ITS ---
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 Measurements Intervals Ada Rate: 107 P: 76 FL: 141 QRS: 79 QRSD: 97 T: 89 QT: 330 QTc: 442 Interpretive Statements SINUS TACHYCARDIA LOW QRS VOLTAGE IN PRECORDIAL LEADS [QRS DEFLECTION < 1.0 mV IN CHEST LEADS] MINIMAL ST DEPRESSION [0.025+ mV ST DEPRESSION] Compared to ECG 01/29/2021 04:13:14 Low QRS voltage now present ST (T wave) deviation now present Electronically Signed On 01-29-2021 19:50:40 CONSUMER BANKER by Tree Couch M.D. [id number]
--- NOTE | 2021-01-29 09:16 | PC.NURSE ---
Patients home medications removed from room per Dr Swanson instructions. This nurse removed the meds with Shirlene Velasquez. Meds are labelled in a plastic bag and placed in cabinet.
[2021-01-29] MEDS: pantoprazole 40 mg SDV IVP (10:34)
[2021-01-29] MEDS: aspirin 81 mg EC Tablet PO (10:49)
[2021-01-29] MEDS: atorvastatin 40 mg Tablet PO (10:50)
[2021-01-29] MEDS: carBAMazepine 200 mg Tablet 600 MG PO ×2 (10:50→20:48)
[2021-01-29] MEDS: doxycycline 100 mg Tablet PO ×2 (10:52→18:45)
[2021-01-29] MEDS: lisinopril 20 mg Tablet PO (10:52)
[2021-01-29] MEDS: ipratropium-albuterol 3 mL Neb INHALATION ×4 (11:36→23:13)
--- NOTE | 2021-01-29 12:45 | PC.NURSE ---
Pt refusing to go back on his BiPAP machine to nursing staff and respiratory therapy. Pt instructed on how to contact nursing if he wishes to be placed back on.
--- NOTE | 2021-01-29 17:49 | PM.MISC ---
Miscellaneous Note Purpose of Documentation: Seen today around 8 AM. No changes to history physical document. Continue with plan as per admitting physician today. [facility] and [facility]. Patient appears clinically better while on bipap and saturating >95%. Will continue to monitor. Will check legionella, bacterial antigens, MRSA PCR, sputum culture gram stain and covid PCR.
[2021-01-29] MEDS: vancomycin 1,250 MG/250 ML PIGGYBACK 250 MG IV (18:44)
[2021-01-29] MEDS: HYDROcodone-acetaminophen 10-325 mg Tablet PO (19:50)
[2021-01-29] MEDS: budesonide 0.5 mg/2 mL Neb INHALATION (20:14)
[2021-01-30] VITALS (28 sets, daily range): BP systolic 107–154; BP diastolic 75–113; PULSE 91–130; RESP 17–26; TEMP 36.4–36.8; O2SAT 87–100
[2021-01-30] MEDS: HYDROcodone-acetaminophen 10-325 mg Tablet PO ×3 (00:14→17:03)
[2021-01-30 04:04] LABS: Alanine Aminotransferase 19 U/L (0-41); Albumin Level 2.8 g/dL (3.5-5.2); Alkaline Phosphatase 90 IU/L (40-130); Aspartate Amino Transferase 37 U/L (0-40); Blood Urea Nitrogen 24 mg/dL (8-23); Calcium 8.4 mg/dL (8.5-10.5); Carbon Dioxide 20 mmol/L (22-29); Chloride 100 mmol/L (98-107); Creatinine Clr Calc Pharmacy 86.4876; Globulin 4.2 g/dL (1.3-4.6); Glucose 151 mg/dL (65-115); Magnesium 2.2 mg/dL (1.7-2.3); Osmolality Calculated 289 mOsm/kg (285-295); Sodium 136 mmol/L (136-145); Total Bilirubin 0.2 mg/dL (0.15-1.2)
[2021-01-30] MEDS: ipratropium-albuterol 3 mL Neb INHALATION ×4 (04:15→20:37)
[2021-01-30 04:16] LABS: Anion Gap 20.3 (5-19); Potassium 4.3 mmol/L (3.5-5.1)
[2021-01-30] MEDS: piperacillin-tazobactam 3.375 GM in sodium chloride 0.9% (plus) 50 ML IV ×3 (04:48→22:00)
[2021-01-30] MEDS: enoxaparin 80 mg/0.8 mL Syringe 70 MG SUBCUT ×2 (04:49→17:02)
[2021-01-30] MEDS: budesonide 0.5 mg/2 mL Neb INHALATION ×2 (07:57→20:37)
[2021-01-30 08:08] LABS: Basophils % 0.1 %; Lymphocytes # 0.5 10^3/uL (0.8-4.8); Mean Corpuscular HGB Conc 33.3 g/dL (30.0-36.0); Mean Corpuscular Hemoglobin 31.9 pg (28.0-34.0); Mean Corpuscular Volume 95.7 fl (80-94); Mean Platelet Volume 9.3 fL (7.4-10.4); Monocytes # 0.7 10^3/uL (0.2-0.9); Monocytes % 6.9 %; Neutrophils # 8.77 10^3/uL (1.8-7.7); Neutrophils % 87.5 %; Nucleated Red Blood Cells % 0 %; Platelet Count 299 10^3/cmm (130-400); Red Blood Count 3.45 10^6/uL (4.1-5.3); Red Cell Distribution Width 12.1 % (12.1-15.1)
[2021-01-30] MEDS: pantoprazole 40 mg SDV IVP (09:38)
[2021-01-30] MEDS: aspirin 81 mg EC Tablet PO (09:38)
[2021-01-30] MEDS: multivitamin therapeutic Tablet 1 TAB PO (09:38)
[2021-01-30] MEDS: doxycycline 100 mg Tablet PO ×2 (09:38→17:02)
[2021-01-30] MEDS: atorvastatin 40 mg Tablet PO (09:38)
[2021-01-30] MEDS: oxybutynin 5 mg Tablet PO (09:38)
[2021-01-30] MEDS: lisinopril 20 mg Tablet PO (09:39)
[2021-01-30] MEDS: carBAMazepine 200 mg Tablet 600 MG PO ×2 (09:40→17:04)
[2021-01-30] MEDS: omega-3 fatty acids 1,000 mg Capsule 1000 MG PO (11:10)
[2021-01-30] MEDS: vancomycin 1,250 MG/250 ML PIGGYBACK 250 MG IV (11:12)
--- NOTE | 2021-01-30 15:08 | P.PN_ITS ---
Subjective Subjective: Interval history: Seen this morning. Patient improved quite a bit compared to admission. He is no longer in respiratory distress and doing well. He is also saturating 97% on 5 L. I wean down his oxygen to 3 L and he still saturating 95%. I discussed with respiratory therapy to titrate oxygen down to keep him between 92 and 94. Patient however states that he is not back to baseline but does feel better compared to admission. Vitals/I&O/Wt Last Vital Signs Temp 98.2 F 01/30/21 12:00 Pulse 98 01/30/21 14:00 Resp 22 H 01/30/21 14:00 BP 143/92 01/30/21 14:00 Pulse Ox 99 01/30/21 14:00 01/30/21 01/30/21 01/30/21 06:59 14:59 22:59 Intake Total 50 / 1180 1300 / 1300 Output Total 625 / 625 Balance -575 / 555 1300 / 1300 Weight last 48 hrs Weight 81.556 kg Weight 81.647 kg Weight 81.647 kg Weight 74.843 kg Physical Exam Narrative: EXAM NARRATIVE: General: Alert oriented x3, patient seen laying flat in bed in ICU bed 2. HEENT: Normocephalic, atraumatic, EOMI, breathing very comfortably on nasal cannula. Cardio: Regular rate rhythm, normal S1-S2, no murmurs rubs gallops, JVD not elevated. Respiratory: Slightly diminished bilateral air entry, expiratory wheezes present but mild at bases, no rhonchi appreciated. No wheeze or crackles appreciated. GI: Abdomen soft, nontender, nondistended, bowel sounds + Rash on abdomen that was present on admission has gone down significantly. Behavior: Appropriate and cooperative Extremities: no edema, no cyanosis Data : 01/30/21 07:35 01/30/21 16:20 Micro: Microbiology 01/29/21 22:10 MRSA Culture - Final Nose 01/29/21 15:22 Gram Stain - Final Sputum - Expectorated Sputum 01/29/21 15:41 Legionella Urinary Antigen - Final Urine,Clean Catch Bacterial Antigens - Final 01/29/21 02:05 Blood Culture - Preliminary Blood NEGATIVE TO DATE 01/29/21 02:15 Blood Culture - Preliminary Blood NEGATIVE TO DATE A&P Assessment and plan (1) Community acquired pneumonia: Status: Acute Qualifiers: Laterality: right Lung location: unspecified part of lung Qualified Code(s): J18.9 - Pneumonia, unspecified organism (2) Acute respiratory failure: Status: Acute (3) Rash: Status: Acute (4) COPD with acute exacerbation: Status: Acute (5) Demand ischemia: Status: Acute Additional A&P Information 75-year-old male with past medical history of COPD, chronic respiratory failure, interstitial lung disease/fibrosis, CHF, hypertension presenting with dyspnea and cough. The patient is found to have COPD acute exacerbation secondary to ri ght-sided pneumonia. His associated rash could be secondary to the infection. Blood cultures are obtained. The patient has mildly elevated troponin with significant delta elevation. EKG shows sinus tachycardia and no acute ischemic changes. Acute respiratory failure.?Resolved patient can transfer from ICU to the general floor. We can continue BiPAP as needed but he is doing well on 3 L nasal cannula saturating 95%. COPD acute exacerbation and right upper lobe pneumonia. Continue steroids, DuoNebs respiratory treatment. Will give 1 more day of Vanco and Zosyn. Will de-escalate to oral antibiotics by tomorrow. Demand ischemia. We will continue his home Lipitor. Will order aspirin. We will continue monitoring troponin level. Troponin elevation most likely demand ischemia. We'll stop full dose Lovenox. Rash could be due to the infection. Rash is much better and patient is asymptomatic it is not itching. DVT prophylaxis. Lovenox. CODE STATUS. He wants to be full code. The plan of care was discussed with the patient. He verbalized understanding and agreement. Transfer from ICU to regular floor. Attestations Medical Necessity Statement*: Possible DC in AM Coding Level of Care Code Acute Indoor Landscaper/Gardener for [facility] Fwd Diagnoses Community acquired pneumonia J18.9 Laterality: right Lung location: unspecified part of lung Acute respiratory failure J96.00 Rash R21 COPD with acute exacerbation J44.1 Demand ischemia I24.8
[2021-01-30] MEDS: sodium chloride 0.9% 500 ML 999 ML IV (15:46)
[2021-01-30 15:55] LABS: ABG PCO2 41.2 mmHg (35-45); Alveolar-Arterial Oxygen Gradi 0.9 mmHg (5-10); Arterial Blood Gas Hematocrit 36.8 % (42-52); Base Excess ABG 0.7 mmol/L (-2.0-2.0); Blood Gas Allen Test Pos; Blood Gas LPM 3.5 %; Blood Gas Operator Identificat GD; Blood Gas Sample Site Radial, left; Blood Gas Sample Type Arterial; Carboxyhemoglobin 0.6 %THgb (0.4-20.1); HCO3 ABG 25.6 mmol/L (22-26); HGB O2 Sat 96.6 % (95-100); Ionized Calcium Level - ABG 1.2 mmol/L (1.1-1.4); Methemoglobin 0.7 % (0.4-1.5); Oxygen Device NC; Oxygen Saturation ABG 97.8; PO2 ABG 91.9 mmHg (80.0-100.0); Potassium Level - ABG 3.9 mmol/L (3.5-5.0)
[2021-01-30 17:03] LABS: Blood Urea Nitrogen 21 mg/dL (8-23); Calcium 8.3 mg/dL (8.5-10.5); Carbon Dioxide 17 mmol/L (22-29); Chloride 100 mmol/L (98-107); Glucose 123 mg/dL (65-115); Lactate (Lactic Acid level) 1.5 mmol/L (0.5-2.2); Osmolality Calculated 280 mOsm/kg (285-295); Sodium 133 mmol/L (136-145)
[2021-01-30 17:17] LABS: Anion Gap 20.1 (5-19); Potassium 4.1 mmol/L (3.5-5.1)
[2021-01-30 17:48] LABS: Quest SARS-CoV-2 RNA NOT DETECTED (NOT DETECTED)
[2021-01-30 20:51] LABS: Alanine Aminotransferase 27 U/L (0-41); Albumin Level 3.2 g/dL (3.5-5.2); Alkaline Phosphatase 89 IU/L (40-130); Anion Gap 16.2 (5-19); Aspartate Amino Transferase 52 U/L (0-40); Blood Urea Nitrogen 20 mg/dL (8-23); Calcium 8.1 mg/dL (8.5-10.5); Carbon Dioxide 22 mmol/L (22-29); Chloride 100 mmol/L (98-107); Globulin 3.4 g/dL (1.3-4.6); Glucose 128 mg/dL (65-115); Osmolality Calculated 282 mOsm/kg (285-295); Potassium 4.2 mmol/L (3.5-5.1); Sodium 134 mmol/L (136-145); Total Bilirubin 0.2 mg/dL (0.15-1.2); Total Protein 6.6 g/dL (6.6-8.7)
[2021-01-30 22:56] LABS: Add Urine Microscopic? NO; Charge for UA Resulting for Rev
[2021-01-30 23:34] LABS: Bilirubin Urine Neg (Negative); Blood Urine Neg (Negative); Glucose Urine UA Norm (Normal); Ketones Urine 1+ (Negative); Leukocyte Esterase Urine Negative (Negative); Nitrate Urine Negative (Negative); Protein Urine Neg (Negative); Specific Gravity, Urine 1.015 (1.005-1.030); Urine Appearance Clear (CLEAR); Urine Color Yellow (Yellow); Urobilinogen Urine Norm (Negative); pH Urine 5 (5-7)
[2021-01-31] VITALS (13 sets, daily range): BP systolic 107–170; BP diastolic 62–88; PULSE 91–115; RESP 16–22; TEMP 36.5–37.1; O2SAT 95–100
[2021-01-31] MEDS: ipratropium-albuterol 3 mL Neb INHALATION ×5 (00:38→23:57)
[2021-01-31] MEDS: piperacillin-tazobactam 3.375 GM in sodium chloride 0.9% (plus) 50 ML IV (04:07)
[2021-01-31 04:18] LABS: Basophils % 0.1 %; Hematocrit 30.3 % (42.0-52.0); Hemoglobin 9.9 g/dL (11.7-16.6); Lymphocytes # 0.3 10^3/uL (0.8-4.8); Lymphocytes % 2.7 %; Mean Corpuscular HGB Conc 32.7 g/dL (30.0-36.0); Mean Corpuscular Hemoglobin 31.4 pg (28.0-34.0); Mean Corpuscular Volume 96.2 fl (80-94); Mean Platelet Volume 9.1 fL (7.4-10.4); Monocytes # 0.5 10^3/uL (0.2-0.9); Monocytes % 4.5 %; Neutrophils # 10.05 10^3/uL (1.8-7.7); Neutrophils % 92.1 %; Nucleated Red Blood Cells % 0 %; Platelet Count 290 10^3/cmm (130-400); Red Blood Count 3.15 10^6/uL (4.1-5.3); Red Cell Distribution Width 12.3 % (12.1-15.1); White Blood Count 10.9 10^3/uL (4.0-10.0)
[2021-01-31] MEDS: HYDROcodone-acetaminophen 10-325 mg Tablet PO ×3 (04:39→22:13)
[2021-01-31 04:44] LABS: Vancomycin Trough 10.3 ug/mL (10-15)
[2021-01-31 04:50] LABS: Magnesium 2.1 mg/dL (1.7-2.3)
[2021-01-31] MEDS: vancomycin 1,250 MG/250 ML PIGGYBACK 250 MG IV (04:57)
[2021-01-31] MEDS: aspirin 81 mg EC Tablet PO (08:12)
[2021-01-31] MEDS: oxybutynin 5 mg Tablet PO (08:12)
[2021-01-31] MEDS: omega-3 fatty acids 1,000 mg Capsule 1000 MG PO (08:12)
[2021-01-31] MEDS: carBAMazepine 200 mg Tablet 600 MG PO ×2 (08:12→18:16)
[2021-01-31] MEDS: multivitamin therapeutic Tablet 1 TAB PO (08:12)
[2021-01-31] MEDS: lisinopril 20 mg Tablet PO (08:12)
[2021-01-31] MEDS: doxycycline 100 mg Tablet PO (08:12)
[2021-01-31] MEDS: atorvastatin 40 mg Tablet PO (08:12)
[2021-01-31] MEDS: ondansetron 2 mg/ML SDV 2 mL 4 MG IVP (08:23)
[2021-01-31] MEDS: pantoprazole 40 mg SDV IVP (08:25)
[2021-01-31] MEDS: budesonide 0.5 mg/2 mL Neb INHALATION (08:31)
--- NOTE | 2021-01-31 11:23 | P.PN_ITS ---
Subjective Subjective: Interval history: Seen this morning. Patient states he is feeling better but not quite back to baseline. He states he has lost his appetite and does not feel like eating the hospital food. His breathing is better and cough is better as well. Vitals/I&O/Wt Last Vital Signs Temp 97.7 F 01/31/21 04:00 Pulse 109 H 01/31/21 08:31 Resp 20 H 01/31/21 08:31 BP 159/87 01/31/21 07:55 Pulse Ox 97 01/31/21 08:31 01/30/21 01/31/21 01/31/21 22:59 06:59 14:59 Intake Total 1550 / 2850 420 / 3270 530 / 530 Output Total 200 / 200 100 / 300 150 / 150 Balance 1350 / 2650 320 / 2970 380 / 380 Weight last 48 hrs Weight 82.735 kg Weight 81.556 kg Weight 81.647 kg Weight 81.647 kg Physical Exam Narrative: EXAM NARRATIVE: General: Alert oriented x3, patient seen sitting up in bed watching TV. HEENT: Normocephalic, atraumatic, EOMI, breathing very comfortably on nasal cannula. Cardio: Regular rate rhythm, normal S1-S2, no murmurs rubs gallops, JVD not elevated. Respiratory: Very good bilateral air entry, no wheezes no rhonchi appreciated today. GI: Abdomen soft, nontender, nondistended, bowel sounds + Rash on abdomen that was present on admission has improved significantly. Almost resolved. Behavior: Appropriate and cooperative, Extremities: no edema, no cyanosis Data : 01/31/21 04:00 01/30/21 19:55 Micro: Microbiology 01/29/21 15:22 Gram Stain - Final Sputum - Expectorated Sputum Sputum Culture - Preliminary 01/29/21 22:10 MRSA Culture - Final Nose 01/29/21 15:41 Legionella Urinary Antigen - Final Urine,Clean Catch Bacterial Antigens - Final A&P Assessment and plan (1) Community acquired pneumonia: Status: Acute Qualifiers: Laterality: right Lung location: unspecified part of lung Qualified Code(s): J18.9 - Pneumonia, unspecified organism (2) Acute respiratory failure: Status: Acute (3) Rash: Status: Acute (4) COPD with acute exacerbation: Status: Acute (5) Demand ischemia: Status: Acute Additional A&P Information 75-year-old male with past medical history of COPD, chronic respiratory failure, interstitial lung disease/fibrosis, CHF, hypertension presenting with dyspnea and cough. The patient is found to have COPD acute exacerbation secondary to right-sided pneumonia. His associated rash could be secondary to the infection. Blood cultures are obtained. The patient has mildly elevated troponin with significant delta elevation. EKG shows sinus tachycardia and no acute ischemic changes. Acute respiratory failure.?Resolved. He is doing well on 3 L nasal cannula saturating 95%. COPD acute exacerbation and right upper lobe pneumonia. Decrease solumedrol to 40 bid and transition to daily strating tomorrow. De-escalate antibiotics. I will place him on oral Augmentin. Bacterial antigens negative, MRSA nares also negative. Demand ischemia. We will continue his home Lipitor. Will order aspirin. We will continue monitoring troponin level. Troponin elevation most likely demand ischemia. We'll stop full dose Lovenox. Rash could be due to the infection. Rash is much better and patient is asymptomatic it is not itching. DVT prophylaxis. Lovenox. CODE STATUS. He wants to be full code. Discharge in a.m. on oral antibiotics. Attestations Medical Necessity Statement*: Discharge in a.m. Coding Level of Care Code Acute Student Financial Aid Manager for Chencho Josue Diagnoses Community acquired pneumonia J18.9 Laterality: right Lung location: unspecified part of lung Acute respiratory failure J96.00 Rash R21 COPD with acute exacerbation J44.1 Demand ischemia I24.8
[2021-01-31] MEDS: amoxicillin-clav 875-125 mg Tablet 1 TAB PO (18:16)
[2021-01-31] MEDS: enoxaparin 40 mg/0.4 mL Syringe SUBCUT (18:16)
[2021-02-01] VITALS (13 sets, daily range): BP systolic 105–169; BP diastolic 67–98; PULSE 89–126; RESP 17–22; TEMP 36.6–37; O2SAT 92–100
[2021-02-01] MEDS: HYDROcodone-acetaminophen 10-325 mg Tablet PO ×2 (02:30→18:16)
[2021-02-01] MEDS: ipratropium-albuterol 3 mL Neb INHALATION ×2 (04:34→19:33)
[2021-02-01 06:05] LABS: Anion Gap 13.9 (5-19); Blood Urea Nitrogen 24 mg/dL (8-23); Calcium 7.6 mg/dL (8.5-10.5); Carbon Dioxide 25 mmol/L (22-29); Chloride 102 mmol/L (98-107); Glucose 104 mg/dL (65-115); Osmolality Calculated 288 mOsm/kg (285-295); Potassium 3.9 mmol/L (3.5-5.1); Sodium 137 mmol/L (136-145)
[2021-02-01] MEDS: amoxicillin-clav 875-125 mg Tablet 1 TAB PO ×2 (08:19→18:10)
[2021-02-01] MEDS: carBAMazepine 200 mg Tablet 600 MG PO ×2 (08:23→18:10)
[2021-02-01] MEDS: aspirin 81 mg EC Tablet PO (08:24)
[2021-02-01] MEDS: multivitamin therapeutic Tablet 1 TAB PO (08:24)
[2021-02-01] MEDS: oxybutynin 5 mg Tablet PO (08:24)
[2021-02-01] MEDS: atorvastatin 40 mg Tablet PO (08:24)
[2021-02-01] MEDS: lisinopril 20 mg Tablet PO (08:25)
[2021-02-01] MEDS: pantoprazole 40 mg SDV IVP (08:26)
--- NOTE | 2021-02-01 13:35 | PC.SOCIAL ---
IMM updated, initialed and dated and copy given to patient
--- NOTE | 2021-02-01 15:14 | PM.PN ---
Subjective Subjective: Interval history: Patient is being treated for pneumonia, today he is wheezing requiring 3.5 L of oxygen, has conversational dyspnea and audible wheezing escalated anti-inflammatory/steroids today currently on Augmentin afebrile no leukocytosis bringing up yellow sputum Cultures negative to date Vitals/I&O/Wt Last Vital Signs Temp 98.5 F 02/01/21 12:00 Pulse 118 H 02/01/21 12:00 Resp 22 H 02/01/21 12:00 BP 169/98 02/01/21 12:00 Pulse Ox 92 02/01/21 12:00 02/01/21 02/01/21 02/01/21 06:59 14:59 22:59 Output Total 100 / 1050 Balance -100 / -280 Weight last 48 hrs Weight 83.098 kg Weight 82.735 kg Physical Exam Narrative: EXAM NARRATIVE: Patient was experiencing expiratory audible wheezing saturating well on 3.5 L nasal cannula S1, S2 sinus rhythm On lung auscultation expiratory wheezing bilaterally, he does have conversational dyspnea Abdomen soft nontender Lower extremity no edema Nonfocal neuro exam Does appear anxious, very talkative, able to answer my questions appropriately EOMI, PERRLA NIH 0 Nonfocal neuro exam Unkept appearance Data : 01/31/21 04:00 02/01/21 05:20 Micro: Microbiology 01/29/21 15:22 Gram Stain - Final Sputum - Expectorated Sputum Sputum Culture - Final A&P Assessment and plan (1) COPD with acute exacerbation: Status: Acute (2) Rash: Status: Acute (3) Community acquired pneumonia: Status: Acute Qualifiers: Laterality: right Lung location: unspecified part of lung Qualified Code(s): J18.9 - Pneumonia, unspecified organism (4) ARPIT (obstructive sleep apnea): Status: Acute (5) Chronic respiratory failure with hypoxia: Status: Acute Additional A&P Information COPD acute exacerbation with pneumonia Continue Augmentin Cultures negative to date Afebrile of leukocytosis Does have expiratory wheezing today increase IV steroids to 60 mg every 12 Added Mucomyst he is bringing up yellow sputum, has conversational dyspnea Patient is stating that he has not used his CPAP for last 1 year Currently saturating well on 3.5 L nasal cannula Underlying pulmonary fibrosis We will monitor for 1 more day We will request BiPAP overnight For anxiety requested fan in the room can use morphine and BiPAP overnight Full code DVT prophylaxis on board Cardiac diet Attestations Medical Necessity Statement*: Discharge tomorrow if clinically doing well Time Spent in Patient Care: less than 15 minutes Coding Level of Care Code Acute Anesthesia Technician for Chg Fwd Diagnoses COPD with acute exacerbation J44.1 Rash R21 Community acquired pneumonia J18.9 Laterality: right Lung location: unspecified part of lung ARPIT (obstructive sleep apnea) G47.33 Chronic respiratory failure with hypoxia J96.11
[2021-02-01] MEDS: cetirizine 10 mg Tablet PO (18:11)
[2021-02-01] MEDS: enoxaparin 40 mg/0.4 mL Syringe SUBCUT (18:11)
[2021-02-01] MEDS: budesonide 0.5 mg/2 mL Neb INHALATION (19:33)
[2021-02-02] VITALS (13 sets, daily range): BP systolic 108–136; BP diastolic 53–84; PULSE 68–110; RESP 16–22; TEMP 36.4–36.9; O2SAT 93–98
[2021-02-02] MEDS: ipratropium-albuterol 3 mL Neb INHALATION ×3 (03:27→11:35)
[2021-02-02] MEDS: budesonide 0.5 mg/2 mL Neb INHALATION (07:53)
--- NOTE | 2021-02-02 09:20 | P.DS_ITS ---
Discharge Providers Date of Admission: 01/29/21 05:13 Date of Discharge: February 02, 2021 Attending Provider at Admission: Bigg Evans Attending Provider at Discharge: Hilary Rodriguez MD Primary Care Provider: Willow Plasencia MD Diagnoses at Discharge Discharge Diagnosis (1) COPD with acute exacerbation: Status: Acute (2) Rash: Status: Acute (3) Community acquired pneumonia: Status: Acute Qualifiers: Laterality: right Lung location: unspecified part of lung Qualified Code(s): J18.9 - Pneumonia, unspecified organism (4) ARPIT (obstructive sleep apnea): Status: Acute (5) Chronic respiratory failure with hypoxia: Status: Acute Reason for Visit 2 Reason for Visit: SOB Hospital Course Hospital Course History of Present Illness by Dr Evans Gamal Forrester is a 75 year old male with past medical history of COPD, interstitial lung disease/fibrosis, CHF, hypertension, sleep apnea who is presenting to emergency room with complaints of increased shortness of breath, cough productive with yellow mucus for last several days, progressively worsening. He describes his symptoms as severe. Not sure about fever. Denies chills. No nausea or vomiting. Reports similar episodes in the past. The patient is found to have a right upper lobe pneumonia. Due to significant respiratory distress and hypoxia the patient is started on BiPAP. Reports some improvement. On review of systems also he reports rash covering his chest and abdomen. It is not itchy or painful. No diarrhea or dysuria. Covid test is negative Hospital course Patient was admitted for acute COPD exacerbation related to right upper lobe pneumonia with underlying history of pulmonary fibrosis. He follows up with Dr. Linares outpatient. On review of my records patient was supposed to start inhaled steroids however I have only noted LAMA and LABA combination as his inhaler regimen. Patient has stopped using CPAP @ home. At home he has not noticed any fever however has been experiencing productive cough with thick yellow mucoid secretion. During this hospitalization he was treated with broad-spectrum antibiotics vancomycin and Zosyn initially which were deescalated on 01/31 to Augmentin, sputum cultures, blood culture sterile, MRSA nares negative, Covid antigen negative. At home patient uses 5 L of oxygen however during this hospitalization he did well with 3.5 L at rest. He did receive IV systemic steroids during hospitalization. CTA chest ruled out pulmonary embolism. He will be discharged home with refill prescription of LAMA and LABA inhaler combination, I will add Pulmicort along doxycycline. I have requested him to see Dr. Linares in next 4 to 7 days. Family was updated on regular basis and at the time of discharge./Panic attacks he did require benzodiazepines as needed dosages however the most effective therapy was a bedside fan which relieved his shortness of breath and anxiety. His calculated/corrected calcium to albumin is normal CT/CT angio chest PE protcl [id number] IMPRESSION: 1. Background of centrilobular emphysema and mild pulmonary fibrosis. Patchy peripheral opacities are seen in the right upper lobe, findings suggesting a right upper lobe pneumonia. 2. Calcified 6 mm granuloma in the left lower lobe. 3. Nonobstructing 3.2 mm left renal calculus. 4. Benign cyst of the left kidney measuring 3.2 cm. No further workup needed. 5. Hyperdense material seen in the gallbladder neck may represent tiny gallstones or gallbladder sludge Physical Exam Narrative: EXAM NARRATIVE: Patient was sitting at the bedside Bilateral breath sounds with minimal expiratory wheeze No acute respiratory distress no use of accessory muscles Unkept appearance S1, S2 Abdomen soft Skin and abdominal rash has improved to significant extent Lower extremity no edema EOMI, PERRLA nonfocal neuro exam Discharge Data Data Completed and Pending: Completed Studies During Hospitalization Category Date Time Status CT angio chest PE protcl [id number] Urge nt Cat Scan 01/29/21 02:35 Completed XR chest 1V kemal ble [id number] Urgent Exams 01/29/21 01:25 [place] [id number] Routin e Ultrasound 01/29/21 08:22 Completed Pending at discharge Category Date Time Status Blood Culture Sta t Lab 01/29/21 02:05 Results Vitals: Last Vital Signs Temp 97.6 F 02/02/21 07:41 Pulse 110 H 02/02/21 08:02 Resp 20 H 02/02/21 08:02 BP 136/74 02/02/21 07:41 Pulse Ox 98 02/02/21 08:02 Discharge Plan Discharge Patient Disposition: Home Condition: Stable Prescriptions: New Pulmicort Flexhaler 180 mcg/actuation aerosol powdr breath activated 2 inh inhalation Q12H Qty: 1 RF: 3 albuterol sulfate 90 mcg/actuation HFA aerosol inhaler 2 inh inhalation Q8H Qty: 8.5 RF: 3 Stiolto Respimat 2.5-2.5 mcg/actuation mist 2 puff inhalation DAILY Qty: 4 RF: 3 doxycycline hyclate 100 mg tablet 100 mg PO BID 7 Days Qty: 14 RF: 0 Continued omega 5-zqa-itz-fish oil [Fish Oil] 1,000 mg (120 mg-180 mg) capsule 1 cap PO DAILY RF: 0 carbamazepine 200 mg tablet 600 mg PO BID RF: 0 vitamin E (dl, acetate) 400 unit capsule 45 mg PO DAILY RF: 0 mecobalamin (vitamin B12) 1,000 mcg tablet,chewable 1,000 mcg PO DAILY RF: 0 hydrocodone-acetaminophen 10-325 mg tablet 1 - 2 tab PO .Q4-6H PRN (Reason: Pain) RF: 0 oxybutynin chloride 5 mg tablet 5 mg PO DAILY RF: 0 cetirizine 10 mg tablet 10 mg PO DAILY PRN (Reason: Allergy Symptoms) RF: 0 sildenafil 100 mg tablet 100 mg PO DAILY PRN (Reason: sexual activity) Qty: 20 RF: 12 atorvastatin 40 mg tablet 40 mg PO DAILY RF: 0 lisinopril 40 mg tablet 20 mg PO DAILY RF: 0 albuterol sulfate 2.5 mg /3 mL (0.083 %) solution for nebulization 2.5 mg inhalation Q4H PRN (Reason: Shortness Of Breath) RF: 0 multivitamin Tablet 1 tab PO DAILY RF: 0 albuterol sulfate 90 mcg/actuation Hfa Aerosol Inhaler 1 inh INHALATION QID PRN (Reason: Shortness Of Breath) RF: 0 Stiolto Respimat 2.5-2.5 mcg/actuation mist 2 puff inhalation DAILY Qty: 5 RF: 3 Discharge Orders: Discharge Order (Routine); Ordered 02/02/21 Ordered By: Hilary Rodriguez Referrals: Willow Plasencia MD [Primary Care Provider] - 02/10/21 8:30 am Katie Linares MD [Physician] - 02/10/21 9:30 am Discharge Diet: Cardiac Discharge Activity: Increase activity as tolerated Patient Instructions: Doxycycline (By mouth), Albuterol (By breathing), Budesonide (By breathing), Tiotropium/Olodaterol (By breathing), COPD (Chronic Obstructive Pulmonary Disease) (GEN), Opioid Safety Discharge Attestations Time Spent in Discharge Care*: less than 30 min Quality Metrics Clinical Quality Measures During this hospital stay, did patient experience: None Coding Level of Care Code Acute Chg FW DC note Diagnoses COPD with acute exacerbation J44.1 Rash R21 Community acquired pneumonia J18.9 Laterality: right Lung location: unspecified part of lung ARPIT (obstructive sleep apnea) G47.33 Chronic respiratory failure with hypoxia J96.11
[2021-02-02] MEDS: amoxicillin-clav 875-125 mg Tablet 1 TAB PO (10:14)
[2021-02-02] MEDS: aspirin 81 mg EC Tablet PO (10:14)
[2021-02-02] MEDS: carBAMazepine 200 mg Tablet 600 MG PO (10:15)
[2021-02-02] MEDS: atorvastatin 40 mg Tablet PO (10:15)
[2021-02-02] MEDS: oxybutynin 5 mg Tablet PO (10:16)
[2021-02-02] MEDS: lisinopril 20 mg Tablet PO (10:16)
[2021-02-02] MEDS: pantoprazole 40 mg SDV IVP (10:36)
== END 2021-02-02 12:55 | disposition home or self-care (01) | DRG 193 ==
LOC: ER 04:36 → ER IP 05:20 → ICU 17:02 → MEDSURG 01-30 18:46
PROVIDERS: Internal Medicine; Admitting Provider Internal Medicine; Emergency Provider Emergency Medicine; PCP Family Medicine; Visit Provider Internal Medicine
DX: J18.9 Pneumonia, unspecified organism (principal); J96.20 Acute and chronic respiratory failure, unspecified whether with hypoxia or hypercapnia; I24.8 Other forms of acute ischemic heart disease; I11.0 Hypertensive heart disease with heart failure; I50.9 Heart failure, unspecified; J43.2 Centrilobular emphysema; F31.9 Bipolar disorder, unspecified; Z99.81 Dependence on supplemental oxygen; N52.9 Male erectile dysfunction, unspecified; E78.5 Hyperlipidemia, unspecified; G47.33 Obstructive sleep apnea (adult) (pediatric); Z87.891 Personal history of nicotine dependence; J84.10 Pulmonary fibrosis, unspecified; R21 Rash and other nonspecific skin eruption; Z91.19 Patient's noncompliance with other medical treatment and regimen; Z79.51 Long term (current) use of inhaled steroids; Z79.891 Long term (current) use of opiate analgesic; F41.9 Anxiety disorder, unspecified
CPT/HCPCS: 36415; 36600; 71045; 71275; 80048; 80051; 80053; 80202; 81003; 82330; 82805; 83605; 83735; 83880; 84484; 85025; 85378; 85610; 86403; 87040; 87070; 87205; 87426; 87449; 87635; 87641; 93005; 93970; 94640; 94660; 94664; 96365; 96366; 96367; 96372; 99291; C9113; J1650; J2405; J2543; J2930; J3370; J7030; J7040; J7050; J7611; J7626; Q9967

== ENCOUNTER → 2021-06-09 14:21 | Outpatient (BNVA) | payer OTHER, SELFPAY | PROVIDERS: PCP Family Medicine; Visit Provider Internal Medicine Cardiovascular Disease | DX: R06.02 Shortness of breath (principal); I13.0 Hypertensive heart and chronic kidney disease with heart failure and stage 1 through stage 4 chronic kidney disease, or unspecified chronic kidney disease; I50.33 Acute on chronic diastolic (congestive) heart failure; N18.9 Chronic kidney disease, unspecified | CPT/HCPCS: 99214 ==

== ENCOUNTER → 2021-09-13 11:26 | Outpatient (BNVA) | payer OTHER, SELFPAY | PROVIDERS: PCP Family Medicine; Visit Provider Internal Medicine Critical Care Medicine | DX: J44.9 Chronic obstructive pulmonary disease, unspecified (principal); J96.11 Chronic respiratory failure with hypoxia; Z99.81 Dependence on supplemental oxygen; Z87.891 Personal history of nicotine dependence; I10 Essential (primary) hypertension; E78.5 Hyperlipidemia, unspecified | CPT/HCPCS: 99214 ==

== ENCOUNTER → 2021-12-09 13:13 | Outpatient (BNVA) | payer OTHER, SELFPAY | PROVIDERS: PCP Family Medicine; Visit Provider Nurse Practitioner Family | DX: I42.8 Other cardiomyopathies (principal); I10 Essential (primary) hypertension; R00.1 Bradycardia, unspecified; Z87.891 Personal history of nicotine dependence | CPT/HCPCS: 93005; 99214 ==

== ENCOUNTER → 2022-05-02 09:53 | Outpatient (BNVA) | payer OTHER, SELFPAY | PROVIDERS: PCP Family Medicine; Visit Provider Internal Medicine Pulmonary Disease | DX: J44.9 Chronic obstructive pulmonary disease, unspecified (principal); J96.11 Chronic respiratory failure with hypoxia; Z87.891 Personal history of nicotine dependence; Z99.81 Dependence on supplemental oxygen | CPT/HCPCS: 99214 ==

== ENCOUNTER 2022-10-03 16:38 | Emergency (ER) | payer OTHER, SELFPAY ==
[2022-10-03 16:47] VITALS: BP 72/49; PULSE 136; RESP 18; TEMP 37; O2SAT 94; BMI 25.1
--- NOTE | 2022-10-03 17:29 | ED_ITS ---
Documented by User: Armando Lopez DO 10/04/22 06:04 HPI - SOB/Dyspnea General: Chief Complaint: Shortness of Breath/Dyspnea Stated Complaint: Low bp, high hr, sob Time Seen by Provider: 10/03/22 16:56 Source: patient Mode of arrival: ambulatory History of Present Illness: HPI Narrative: 69-year-old male presents emergency room with complaints of shortness of breath. He gone to the [place] [facility] for complaining of shortness of breath and for his teeth as well he states he has several dental infections concerned he may have an abscess when he arrived there he was found to be hypotensive and tachycardic and he was referred to the emergency room. He denies any abdominal pain no chest pain no fever sweats chills he has been nauseous frequently no vomiting or diarrhea. He has not had a fever that he is noted. He does chronically wear oxygen. MD elicited complaint: shortness of breath and cough Pertinent past history: COPD Severity: moderate Exacerbating factors: nothing Relieving factors: nothing Associated symptoms: Reports cough and dizziness; Deny abdominal pain, chest congestion, chest pain, diaphoresis, extremity pain, fever(s), hemoptysis, lightheadedness, myalgias, nausea, orthopnea, palpitations, paresthesias, polydipsia, polyuria, rash, sense of impending doom, syncope or vomiting Treatment prior to arrival: oxygen Review of Systems Const: Denies: fever(s), chills or diaphoresis Card: Denies: chest pain, palpitations, lightheadedness, syncope or orthopnea Resp: Reports: dyspnea, non-productive cough and wheezing; Denies: hemoptysis or chest congestion GI: Denies: abdominal pain, nausea or vomiting : Denies: flank pain, dysuria, urinary frequency or urinary urgency Musc: Denies: neck pain, back pain or extremity pain Neuro: Reports: dizziness Endo: Denies: polyuria or polydipsia PFSH ED PFSH: Medical History Bipolar 1 disorder Chest pain Chronic obstructive pulmonary disease Chronic respiratory failure with hypoxia Community acquired pneumonia Dependence on supplemental oxygen Erectile dysfunction HTN (hypertension) Hyperlipidemia ARPIT (obstructive sleep apnea) Painful ejaculation Scrotal pain Sepsis Sleep apnea Tachycardia Surgical History Hx of appendectomy Family History Mother , AT AGE 64 Cancer Diabetes Grandfather Diabetes Father , AT AGE 94 Lung disease Social History Smoking and tobacco status: former smoker (2002) Quit status (tobacco): has quit using tobacco Year quit tobacco: 2002 Former quit date comment: Hx of 2 PPD x 50 Years Smoking risk assessment/counseling performed?: No Alcohol intake: former Counseling given: No Substance/Drug Use: never Counseling given: No Lives independently: Yes Marital status: / service: Yes Current occupational status: retired Do you think of yourself as: Straight/Heterosexual Physical Exam Const: GENERAL APPEARANCE: cooperative and comfortable ORIENTATION/CONSCIOUSNESS: Yes awake, Yes oriented to person, Yes oriented to place and Yes oriented to time HENMT: COMMON NORMALS: normocephalic, atraumatic and hearing grossly normal bilaterally HEAD & SCALP: normocephalic and atraumatic OTHER: Oral mucosa normal dentition poor with several eroded teeth no obvious enlarged abscesses at this time there is some gum swelling along the mandible. No drainage. Resp: COMMON NORMALS: normal respiratory effort, No retractions and No use of accessory muscles AUSCULTATION: rhonchi and wheezes Cardio: COMMON NORMALS: regular rhythm and No murmurs present (Cardio) RATE: tachycardic RHYTHM: regular rhythm GI: COMMON NORMALS: Soft to palpation and No hepatosplenomegaly present A USCULTATION: Yes normoactive bowel sounds PALPATION: Yes Soft to palpation, No Tenderness to palpation present (GI), No Guarding due to palpation present (GI) and Yes No hepatosplenomegaly present Extremity: COMMON NORMALS: normal to inspection, capillary refill normal, no clubbing, cyanosis or edema, no calf tenderness and no pedal edema Neuro: SENSORIUM/ORIENTATION: Yes oriented to person, Yes oriented to place and Yes oriented to time Skin: COMMON NORMALS: no rashes or lesions noted GENERAL SKIN EXAM: no rashes or lesions noted Course Vital Signs: Vital signs: Vital Signs Temperature 98.6 F 10/03/22 16:47 Pulse Rate 104 H 10/03/22 20:47 Respiratory Rate 18 10/03/22 20:47 Blood Pressure 116/77 10/03/22 20:47 Pulse Oximetry 96 10/03/22 20:47 Oxygen Delivery Me thod Room Air 10/03/22 20:22 Oxygen Flow Rate 3 10/03/22 18:02 MDM - SOB/Dyspnea Medical Decision Making Care signed out to Dr. Yan at change of shift. See final notes for diagnosis and disposition. Patient presents here with dyspnea likely from a bronchitis he also has dental pain he does have poor dentition we will place him on Keflex he needs to follow- up with dentist blood work and CT angio here is normal no PE he is stable for discharge. Lab Data 10/03/22 17:44 10/03/22 17:44 Labs/Radiology: Radiology Impressions Chest X-Ray 10/03/22 17:30 IMPRESSION: Sequela of COPD. No acute findings. Chest CTA 10/03/22 18:46 IMPRESSION: 1. Negative for pulmonary embolism. 2. Topu-nk-svgshanq emphysematous changes of the lungs. Minor areas of mucous plugging. Mild diffuse bronchial wall thickening which is suggestive of bronchitis. Laboratory Results WBC 12.1 10^3/uL (4.0-10.0) H 10/03/22 17:44 RBC 4.34 10^6/uL (4.1-5.3) 10/03/22 17:44 Hgb 13.7 g/dL (11.7-16.6) 10/03/22 17:44 Hct 41.7 % (42.0-52.0) L 10/03/22 17:44 MCV 96.1 fl (80-94) H 10/03/22 17:44 MCH 31.6 pg (28.0-34.0) 10/03/22 17:44 MCHC 32.9 g/dL (30.0-36.0) 10/03/22 17:44 RDW 11.8 % (12.1-15.1) L 10/03/22 17:44 Plt Count 224 10^3/cmm (130-400) 10/03/22 17:44 MPV 9.0 fL (7.4-10.4) 10/03/22 17:44 Neut % (Auto) 82.0 % 10/03/22 17:44 Lymph % (Auto) 8.5 % 10/03/22 17:44 [place] % (Auto) 8.5 % 10/03/22 17:44 Eos % (Auto) 0.4 % 10/03/22 17:44 Baso % (Auto) 0.3 % 10/03/22 17:44 Neut # (Auto) 9.95 10^3/uL (1.8-7.7) H 10/03/22 17:44 Lymph # (Auto) 1.0 10^3/uL (0.8-4.8) 10/03/22 17:44 [place] # (Auto) 1.0 10^3/uL (0.2-0.9) H 10/03/22 17:44 Eos # (Auto) 0.1 10^3/uL (0.0-0.8) 10/03/22 17:44 Baso # (Auto) 0.0 10^3/uL (0.0-0.1) 10/03/22 17:44 Nucleated RBC % (auto) 0 % 10/03/22:44 Nucleated RBCs # 0.0 /100WBC 10/03/22 17:44 D-Dimer 1.44 ug/mIFEU (0-0.59) H 10/03/22 17:44 Specimen Type Arterial 10/03/22 17:52 Sample Site Radial, right 10/03/22 17:52 ABG pH 7.39 (7.35-7.45) 10/03/22 17:52 ABG pCO2 42.9 mmHg (35-45) 10/03/22 17:52 ABG pO2 92.8 mmHg (80.0-100.0) 10/03/22 17:52 ABG HCO3 26.2 mmol/L (22-26) H 10/03/22 17:52 ABG O2 Saturation 98.0 10/03/22 17:52 ABG Base Excess 1.0 mmol/L (-2.0-2.0) 10/03/22 17:52 Jaxson Test Pos 10/03/22 17:52 A-a O2 Gradient 10.7 mmHg (5-10) H 10/03/22 17:52 Hematocrit 41.1 % (42-52) L 10/03/22 17:52 Hgb O2 Saturation 96.6 % (95-100) 10/03/22 17:52 Carboxyhemoglobin 1.0 %THgb (0.4-20.1) 10/03/22 17:52 Methemoglobin 0.4 % (0.4-1.5) 10/03/22 17:52 Total Hemoglobin 13.4 g/dL (14-18) L 10/03/22 17:52 Sodium 139.0 mmol/L (131-143) 10/03/22 17:52 Potassium 4.4 mmol/L (3.5-5.0) 10/03/22 17:52 Glucose 147.0 mg/dL (70-115) H 10/03/22 17:52 Ionized Calcium 1.2 mmol/L (1.1-1.4) 10/03/22 17:52 O2 Delivery Device Nc 10/03/22 17:52 O2 Liters/Min 3.0 % 10/03/22 17:52 FiO2 32.0 % 10/03/22 17:52 Matzo Forming Machine Operator ID glc 10/03/22 17:52 Sodium 135 mmol/L (136-145) L 10/03/22 17:44 Potassium 4.3 mmol/L (3.5-5.1) 10/03/22 17:44 Chloride 97 mmol/L (98-107) L 10/03/22 17:44 Carbon Dioxide 27 mmol/L (22-29) 10/03/22 17:44 Anion Gap 15.3 (5-19) 10/03/22 17:44 BUN 12 mg/dL (8-23) 10/03/22 17:44 Creatinine 1.3 mg/dL (0.7-1.2) H 10/03/22 17:44 GFR Calculation Not Reportable 10/03/22 17:44 Glucose 145 mg/dL (65-115) H 10/03/22 17:44 Calculated Osmolality 282 mOsm/kg (285-295) L 10/03/22 17:44 Lactic Acid 1.4 mmol/L (0.5-2.2) 10/03/22 17:44 Calcium 9.0 mg/dL (8.5-10.5) 10/03/22 17:44 Total Bilirubin 0.4 mg/dL (0.15-1.2) 10/03/22 17:44 AST 12 U/L (0-40) 10/03/22 17:44 ALT 12 U/L (0-41) 10/03/22 17:44 Alkaline Phosphatase 88 U/L (40-130) 10/03/22 17:44 Creatine Kinase 49 U/L (39-308) 10/03/22 17:44 Total Protein 7.3 g/dL (6.6-8.7) 10/03/22 17:44 Albumin 4.0 g/dL (3.5-5.2) 10/03/22 17:44 Globulin 3.3 g/dL (1.3-4.6) 10/03/22 17:44 Lipase 10 U/L (13-60) L 10/03/22 17:44 Discharge Plan Discharge Patient Disposition: Home Clinical Impression: Bronchitis, Pain, dental Condition: Stable Prescriptions: New cephalexin 500 mg capsule 500 mg PO TID 7 Days Qty: 21 0RF No Action omega 8-cag-ekq-fish oil [Fish Oil] 1,000 mg (120 mg-180 mg) capsule 1 cap PO DAILY carbamazepine 200 mg tablet 600 mg PO BID vitamin E (dl, acetate) 400 unit capsule 45 mg PO DAILY mecobalamin (vitamin B12) 1,000 mcg tablet,chewable 1,000 mcg PO DAILY hydrocodone-acetaminophen 10-325 mg tablet 1 - 2 tab PO .Q4-6H PRN (Reason: Pain) oxybutynin chloride 5 mg tablet 5 mg PO DAILY cetirizine 10 mg tablet 10 mg PO DAILY PRN (Reason: Allergy Symptoms) sildenafil 100 mg tablet 100 mg PO DAILY PRN (Reason: sexual activity) Qty: 20 12RF Rx Instructions: 1 hour before intercourse on empty stomach. NO NITROGLYCERIN! artifi.tears(hypromellose)(PF) 0.3 % drops 1 drp ophthalmic (eye) DAILY PRN atorvastatin 40 mg tablet 40 mg PO DAILY lisinopril 40 mg tablet 20 mg PO DAILY albuterol sulfate 2.5 mg /3 mL (0.083 %) solution for nebulization 2.5 mg inhalation Q4H PRN (Reason: Shortness Of Breath) multivitamin Tablet 1 tab PO DAILY Breztri Aerosphere 160-9-4.8 mcg/actuation HFA aerosol inhaler 2 inh inhalation BID 30 Days Qty: 10.7 6RF albuterol sulfate 90 mcg/actuation HFA aerosol inhaler 2 inh inhalation Q8H Qty: 8.5 3RF Discharge Orders: Discharge ED (Routine); Ordered 10/03/22 Ordered By: Romain Yan Referrals: Willow Plasencia MD [Primary Care Provider] - 1-3 days Discharge Diet: Advance as tolerated Discharge Activity: Resume usual activity Patient Instructions: Acute Bronchitis (ED), Toothache (ED) Coding Level of Care Code ED Windshield Installer for Chg Fwd Documented by User: Romain Yan MD 10/03/22 20:46 HPI - SOB/Dyspnea General: Chief Complaint: Shortness of Breath/Dyspnea Stated Complaint: Low bp, high hr, sob Time Seen by Provider: 10/03/22 16:56 PFSH ED PFSH: Medical History Bipolar 1 disorder Chest pain Chronic obstructive pulmonary disease Chronic respiratory failure with hypoxia Community acquired pneumonia Dependence on supplemental oxygen Erectile dysfunction HTN (hypertension) Hyperlipidemia ARPIT (obstructive sleep apnea) Painful ejaculation Scrotal pain Sepsis Sleep apnea Tachycardia Surgical History Hx of appendectomy Family History Mother , AT AGE 64 Cancer Diabetes Grandfather Diabetes Father , AT AGE 94 Lung disease Social History Smoking and tobacco status: former smoker (2002) Quit status (tobacco): has quit using tobacco Year quit tobacco: 2002 Former quit date comment: Hx of 2 PPD x 50 Years Smoking risk assessment/counseling performed?: No Alcohol intake: former Counseling given: No Substance/Drug Use: never Counseling given: No Lives independently: Yes Marital status: / service: Yes Current occupational status: retired Do you think of yourself as: Straight/Heterosexual Course Vital Signs: Vital signs: Vital Signs Temperature 98.6 F 10/03/22 16:47 Pulse Rate 104 H 10/03/22 20:47 Respiratory Rate 18 10/03/22 20:47 Blood Pressure 116/77 10/03/22 20:47 Pulse Oximetry 96 10/03/22 20:47 Oxygen Delivery Me thod Room Air 10/03/22 20:22 Oxygen Flow Rate 3 10/03/22 18:02 MDM - SOB/Dyspnea Medical Decision Making Patient presents here with dyspnea likely from a bronchitis he also has dental pain he does have poor dentition we will place him on Keflex he needs to follow- up with dentist blood work and CT angio here is normal no PE he is stable for discharge. Medical Records I reviewed the patient's medical records. Lab Data I reviewed the patient's lab results. 10/03/22 17:44 10/03/22 17:44 Labs/Radiology: Radiology Impressions Chest X-Ray 10/03/22 17:30 IMPRESSION: Sequela of COPD. No acute findings. Chest CTA 10/03/22 18:46 IMPRESSION: 1. Negative for pulmonary embolism. 2. Pzyx-lq-jzzkuzea emphysematous changes of the lungs. Minor areas of mucous plugging. Mild diffuse bronchial wall thickening which is suggestive of bronchitis. Laboratory Results WBC 12.1 10^3/uL (4.0-10.0) H 10/03/22 17:44 RBC 4.34 10^6/uL (4.1-5.3) 10/03/22 17:44 Hgb 13.7 g/dL (11.7-16.6) 10/03/22 17:44 Hct 41.7 % (42.0-52.0) L 10/03/22 17:44 MCV 96.1 fl (80-94) H 10/03/22 17:44 MCH 31.6 pg (28.0-34.0) 10/03/22 17:44 MCHC 32.9 g/dL (30.0-36.0) 10/03/22 17:44 RDW 11.8 % (12.1-15.1) L 10/03/22 17:44 Plt Count 224 10^3/cmm (130-400) 10/03/22 17:44 MPV 9.0 fL (7.4-10.4) 10/03/22 17:44 Neut % (Auto) 82.0 % 10/03/22 17:44 Lymph % (Auto) 8.5 % 10/03/22 17:44 [place] % (Auto) 8.5 % 10/03/22 17:44 Eos % (Auto) 0.4 % 10/03/22 17:44 Baso % (Auto) 0.3 % 10/03/22 17:44 Neut # (Auto) 9.95 10^3/uL (1.8-7.7) H 10/03/22 17:44 Lymph # (Auto) 1.0 10^3/uL (0.8-4.8) 10/03/22 17:44 [place] # (Auto) 1.0 10^3/uL (0.2-0.9) H 10/03/22 17:44 Eos # (Auto) 0.1 10^3/uL (0.0-0.8) 10/03/22 17:44 Baso # (Auto) 0.0 10^3/uL (0.0-0.1) 10/03/22 17:44 Nucleated RBC % (auto) 0 % 10/03/22: Nucleated RBCs # 0.0 /100WBC 10/03/22 17:44 D-Dimer 1.44 ug/mIFEU (0-0.59) H 10/03/22 17:44 Specimen Type Arterial 10/03/22 17:52 Sample Site Radial, right 10/03/22 17:52 ABG pH 7.39 (7.35-7.45) 10/03/22 17:52 ABG pCO2 42.9 mmHg (35-45) 10/03/22 17:52 ABG pO2 92.8 mmHg (80.0-100.0) 10/03/22 17:52 ABG HCO3 26.2 mmol/L (22-26) H 10/03/22 17:52 ABG O2 Saturation 98.0 10/03/22 17:52 ABG Base Excess 1.0 mmol/L (-2.0-2.0) 10/03/22 17:52 Jaxson Test Pos 10/03/22 17:52 A-a O2 Gradient 10.7 mmHg (5-10) H 10/03/22 17:52 Hematocrit 41.1 % (42-52) L 10/03/22 17:52 Hgb O2 Saturation 96.6 % (95-100) 10/03/22 17:52 Carboxyhemoglobin 1.0 %THgb (0.4-20.1) 10/03/22 17:52 Methemoglobin 0.4 % (0.4-1.5) 10/03/22 17:52 Total Hemoglobin 13.4 g/dL (14-18) L 10/03/22 17:52 Sodium 139.0 mmol/L (131-143) 10/03/22 17:52 Potassium 4.4 mmol/L (3.5-5.0) 10/03/22 17:52 Glucose 147.0 mg/dL (70-115) H 10/03/22 17:52 Ionized Calcium 1.2 mmol/L (1.1-1.4) 10/03/22 17:52 O2 Delivery Device Nc 10/03/22 17:52 O2 Liters/Min 3.0 % 10/03/22 17:52 FiO2 32.0 % 10/03/22 17:52 Matzo Forming Machine Operator ID glc 10/03/22 17:52 Sodium 135 mmol/L (136-145) L 10/03/22 17:44 Potassium 4.3 mmol/L (3.5-5.1) 10/03/22 17:44 Chloride 97 mmol/L (98-107) L 10/03/22 17:44 Carbon Dioxide 27 mmol/L (22-29) 10/03/22 17:44 Anion Gap 15.3 (5-19) 10/03/22 17:44 BUN 12 mg/dL (8-23) 10/03/22 17:44 Creatinine 1.3 mg/dL (0.7-1.2) H 10/03/22 17:44 GFR Calculation Not Reportable 10/03/22 17:44 Glucose 145 mg/dL (65-115) H 10/03/22 17:44 Calculated Osmolality 282 mOsm/kg (285-295) L 10/03/22 17:44 Lactic Acid 1.4 mmol/L (0.5-2.2) 10/03/22 17:44 Calcium 9.0 mg/dL (8.5-10.5) 10/03/22 17:44 Total Bilirubin 0.4 mg/dL (0.15-1.2) 10/03/22 17:44 AST 12 U/L (0-40) 10/03/22 17:44 ALT 12 U/L (0-41) 10/03/22 17:44 Alkaline Phosphatase 88 U/L (40-130) 10/03/22 17:44 Creatine Kinase 49 U/L (39-308) 10/03/22 17:44 Total Protein 7.3 g/dL (6.6-8.7) 10/03/22 17:44 Albumin 4.0 g/dL (3.5-5.2) 10/03/22 17:44 Globulin 3.3 g/dL (1.3-4.6) 10/03/22 17:44 Lipase 10 U/L (13-60) L 10/03/22 17:44 Discharge Plan Discharge Patient Disposition: Home Clinical Impression: Bronchitis, Pain, dental Condition: Stable Prescriptions: New cephalexin 500 mg capsule 500 mg PO TID 7 Days Qty: 21 0RF No Action omega 6-inn-mth-fish oil [Fish Oil] 1,000 mg (120 mg-180 mg) capsule 1 cap PO DAILY carbamazepine 200 mg tablet 600 mg PO BID vitamin E (dl, acetate) 400 unit capsule 45 mg PO DAILY mecobalamin (vitamin B12) 1,000 mcg tablet,chewable 1,000 mcg PO DAILY hydrocodone-acetaminophen 10-325 mg tablet 1 - 2 tab PO .Q4-6H PRN (Reason: Pain) oxybutynin chloride 5 mg tablet 5 mg PO DAILY cetirizine 10 mg tablet 10 mg PO DAILY PRN (Reason: Allergy Symptoms) sildenafil 100 mg tablet 100 mg PO DAILY PRN (Reason: sexual activity) Qty: 20 12RF Rx Instructions: 1 hour before intercourse on empty stomach. NO NITROGLYCERIN! artifi.tears(hypromellose)(PF) 0.3 % drops 1 drp ophthalmic (eye) DAILY PRN atorvastatin 40 mg tablet 40 mg PO DAILY lisinopril 40 mg tablet 20 mg PO DAILY albuterol sulfate 2.5 mg /3 mL (0.083 %) solution for nebulization 2.5 mg inhalation Q4H PRN (Reason: Shortness Of Breath) multivitamin Tablet 1 tab PO DAILY Breztri Aerosphere 160-9-4.8 mcg/actuation HFA aerosol inhaler 2 inh inhalation BID 30 Days Qty: 10.7 6RF albuterol sulfate 90 mcg/actuation HFA aerosol inhaler 2 inh inhalation Q8H Qty: 8.5 3RF Discharge Orders: Discharge ED (Routine); Ordered 10/03/22 Ordered By: Romain Yan Referrals: Willow Plasencia MD [Primary Care Provider] - 1-3 days Discharge Diet: Advance as tolerated Discharge Activity: Resume usual activity Patient Instructions: Acute Bronchitis (ED), Toothache (ED) Coding Level of Care Code ED Windshield Installer for Chencho Josue
--- NOTE | 2022-10-03 17:30 | XRR_ITS ---
PROCEDURE INFORMATION: Exam: XR Chest Exam date and time: 10/03/2022 5:34 PM Age: 77 years old Clinical indication: Cough; Additional info: Dyspnea/cough TECHNIQUE: Imaging protocol: Radiologic exam of the chest. Views: 1 view. COMPARISON: CR XR chest 1V portable [id number] 01/29/2021 1:33 AM FINDINGS: Lungs: Emphysematous changes of the lungs. Calcified granuloma noted in the left lower lung. No consolidation. Pleural spaces: Unremarkable. No pleural effusion. No pneumothorax. Heart/Mediastinum: Unremarkable. No cardiomegaly. Bones/joints: Unremarkable. XR/XR chest 1V portable [id number] IMPRESSION: Sequela of COPD. No acute findings.
--- NOTE | 2022-10-03 17:43 | ECG_ITS ---
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 Measurements Intervals [place] Rate: 112 P: 72 PA: 148 QRS: 70 QRSD: 92 T: 72 QT: 315 QTc: 430 Interpretive Statements SINUS TACHYCARDIA ABNORMAL RHYTHM ECG Compared to ECG 01/29/2021 10:38:38 ST (T wave) deviation no longer present Electronically Signed On 10-03-2022 21:39:32 CDT by Jaycob Ramos M.D. [id number]
[2022-10-03 17:54] LABS: Basophils % 0.3 %; Eosinophils # 0.1 10^3/uL (0.0-0.8); Eosinophils % 0.4 %; Hematocrit 41.7 % (42.0-52.0); Hemoglobin 13.7 g/dL (11.7-16.6); Lymphocytes % 8.5 %; Mean Corpuscular HGB Conc 32.9 g/dL (30.0-36.0); Mean Corpuscular Hemoglobin 31.6 pg (28.0-34.0); Mean Corpuscular Volume 96.1 fl (80-94); Monocytes % 8.5 %; Neutrophils # 9.95 10^3/uL (1.8-7.7); Nucleated Red Blood Cells % 0 %; Platelet Count 224 10^3/cmm (130-400); Red Blood Count 4.34 10^6/uL (4.1-5.3); Red Cell Distribution Width 11.8 % (12.1-15.1); White Blood Count 12.1 10^3/uL (4.0-10.0)
[2022-10-03 18:02] VITALS: BP 102/74; PULSE 112; RESP 17; O2SAT 98
[2022-10-03 18:04] LABS: ABG PCO2 42.9 mmHg (35-45); ABG PH Result 7.39 (7.35-7.45); Alveolar-Arterial Oxygen Gradi 10.7 mmHg (5-10); Arterial Blood Gas Hematocrit 41.1 % (42-52); Blood Gas Allen Test Pos; Blood Gas Operator Identificat glc; Blood Gas Sample Site Radial, right; Blood Gas Sample Type Arterial; HCO3 ABG 26.2 mmol/L (22-26); HGB O2 Sat 96.6 % (95-100); Ionized Calcium Level - ABG 1.2 mmol/L (1.1-1.4); Methemoglobin 0.4 % (0.4-1.5); Oxygen Device NC; PO2 ABG 92.8 mmHg (80.0-100.0); Potassium Level - ABG 4.4 mmol/L (3.5-5.0); Total Hemoglobin 13.4 g/dL (14-18)
[2022-10-03 18:14] LABS: Alanine Aminotransferase 12 U/L (0-41); Alkaline Phosphatase 88 U/L (40-130); Anion Gap 15.3 (5-19); Aspartate Amino Transferase 12 U/L (0-40); Blood Urea Nitrogen 12 mg/dL (8-23); Carbon Dioxide 27 mmol/L (22-29); Chloride 97 mmol/L (98-107); Creatine Phosphokinase 49 U/L (39-308); Globulin 3.3 g/dL (1.3-4.6); Glucose 145 mg/dL (65-115); Lipase 10 U/L (13-60); Osmolality Calculated 282 mOsm/kg (285-295); Potassium 4.3 mmol/L (3.5-5.1); Sodium 135 mmol/L (136-145); Total Bilirubin 0.4 mg/dL (0.15-1.2); Total Protein 7.3 g/dL (6.6-8.7)
[2022-10-03 18:15] LABS: Lactic Sepsis W/Reflex 1.4 mmol/L (0.5-2.2)
[2022-10-03 18:29] LABS: Creatinine Clr Calc Pharmacy 51.5599
[2022-10-03] MEDS: sodium chloride 0.9% 1,000 ML 999 ML IV (18:35)
[2022-10-03 18:37] LABS: D Dimer 1.44 ug/mIFEU (0-0.59)
--- NOTE | 2022-10-03 18:46 | CTR_ITS ---
PROCEDURE INFORMATION: Exam: CTA Chest With Contrast Exam date and time: 10/03/2022 7:47 PM Age: 77 years old Clinical indication: Shortness of breath; Additional info: SOB TECHNIQUE: Imaging protocol: Computed tomographic angiography of the chest with contrast. Exam focused on the arteries. 3D rendering (Not supervised by radiologist): MIP and/or 3D reconstructed images were created by the technologist. Radiation optimization: All CT scans at this facility use at least one of these dose optimization techniques: automated exposure control; mA and/or kV adjustment per patient size (includes targeted exams where dose is matched to clinical indication); or iterative reconstruction. Contrast material: OMNI 350; Contrast volume: 100 ml; Contrast route: INTRAVENOUS (IV); REPORTING DATA: Count of CT and Cardiac NM exams in prior 12 months: This patient has received 0 known CTs and 0 known cardiac nuclear medicine studies in the 12 months prior to the current study. COMPARISON: CT angio chest PE protcl [id number] 01/29/2021 3:47 AM RADIATION DOSE METRICS: Total DLP (mGy-cm): 377.71 FINDINGS: Pulmonary arteries: Normal. No pulmonary emboli. Aorta: No aortic aneurysm. No aortic dissection. Lungs: Tajl-ue-ofxroetg centrilobular emphysematous changes of the lungs. Focal areas of mucous plugging noted in the anterior/inferior right upper lobe. Mild diffuse bronchial wall thickening. Calcified granuloma noted in the left lung base. No consolidation. No masses. Pleural spaces: Unremarkable. No pneumothorax. No pleural effusion. Heart: Unremarkable. No cardiomegaly. No pericardial effusion. Lymph nodes: Unremarkable. No enlarged lymph nodes. Bones/joints: Unremarkable. No acute fracture. Soft tissues: Unremarkable. CT/CT angio chest PE protcl [id number] IMPRESSION: 1. Negative for pulmonary embolism. 2. Rubu-lo-xgowznmx emphysematous changes of the lungs. Minor areas of mucous plugging. Mild diffuse bronchial wall thickening which is suggestive of bronchitis.
[2022-10-03 19:32] VITALS: BP 130/88; PULSE 112; O2SAT 97
[2022-10-03 20:22] VITALS: BP 93/75; PULSE 101; RESP 16; O2SAT 96
[2022-10-03] MEDS: dexamethasone 10 mg/mL INJ IVP (20:30)
[2022-10-03] MEDS: cephALEXin 500 mg Capsule PO (20:37)
[2022-10-03 20:47] VITALS: BP 116/77; PULSE 104; RESP 18; O2SAT 96
== END 2022-10-03 20:49 | disposition home or self-care (01) ==
PROVIDERS: Family Medicine; Emergency Provider Emergency Medicine; PCP Family Medicine
DX: J44.9 Chronic obstructive pulmonary disease, unspecified (principal); K08.89 Other specified disorders of teeth and supporting structures; I10 Essential (primary) hypertension; E78.5 Hyperlipidemia, unspecified; Z87.891 Personal history of nicotine dependence
CPT/HCPCS: 36415; 36600; 71045; 71275; 80051; 80053; 82330; 82550; 82805; 83605; 83690; 85025; 85378; 93005; 96361; 96374; 99285; J1100; J7030

== ENCOUNTER → 2022-11-03 12:44 | Outpatient (BNVA) | payer OTHER, SELFPAY | PROVIDERS: PCP Family Medicine; Visit Provider Internal Medicine Pulmonary Disease | DX: J44.9 Chronic obstructive pulmonary disease, unspecified (principal); J96.11 Chronic respiratory failure with hypoxia; Z87.891 Personal history of nicotine dependence; Z99.81 Dependence on supplemental oxygen | CPT/HCPCS: 99214 ==

== ENCOUNTER → 2023-05-08 15:08 | Outpatient (BNVA) | payer OTHER, SELFPAY | PROVIDERS: PCP Family Medicine; Visit Provider Internal Medicine Pulmonary Disease | DX: J43.2 Centrilobular emphysema (principal); J96.11 Chronic respiratory failure with hypoxia; Z99.81 Dependence on supplemental oxygen; Z87.891 Personal history of nicotine dependence | CPT/HCPCS: 99214 ==

== ENCOUNTER 2023-08-05 11:19 | Inpatient (IN) | payer OTHER, SELFPAY ==
[2023-08-05] VITALS (26 sets, daily range): BP systolic 73–181; BP diastolic 53–121; PULSE 77–145; RESP 16–82; TEMP 36.6–37.5; O2SAT 94–98; BMI 23.8
--- NOTE | 2023-08-05 11:25 | ECG_ITS ---
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 Measurements Intervals [place] Rate: 139 P: 84 PA: 142 QRS: 79 QRSD: 82 T: 81 QT: 298 QTc: 454 Interpretive Statements SINUS TACHYCARDIA ABNORMAL RHYTHM ECG Compared to ECG 10/03/2022 17:43:02 No significant changes Electronically Signed On 08-05-2023 12:03:32 CDT by Aracelis Chandler M.D. [id number]
--- NOTE | 2023-08-05 11:31 | W.ED.SOB ---
HPI - SOB/Dyspnea General: Chief Complaint: Shortness of Breath/Dyspnea Stated Complaint: SOB Time Seen by Provider: 08/05/23 11:24 Source: patient Mode of arrival: EMS History of Present Illness: HPI Narrative: 78-year-old male presents to the emergency room from home he has a history of severe COPD wears oxygen at 6 L/min at his baseline. States he had flulike symptoms for the last 3 days nonproductive cough. He arrives here tachycardic and extremely short of breath he denies chest pain. Patient also reports recently being on 2 courses of antibiotics for dental extractions he feels like he still spitting up mucus or purulent fluid from dental extraction she has no facial swelling. He has some mild irritation. He denies any fever at home. MD elicited complaint: shortness of breath and cough Pertinent past history: COPD and congestive heart failure Onset (ago): day(s) Context: recent illness Timing: constant Severity: moderate Exacerbating factors: exertion and coughing Relieving factors: oxygen, rest and bronchodilators Known history of: COPD and congestive heart failure Associated symptoms: Deny abdominal pain, chest congestion, chest pain, cough, diaphoresis, dizziness, extremity pain, fever(s), hemoptysis, lightheadedness, myalgias, nausea, orthopnea, palpitations, paresthesias, polydipsia, polyuria, rash, sense of impending doom, syncope or vomiting Treatment prior to arrival: oxygen and bronchodilator Related Data: Home oxygen amount: other (6L) Review of Systems Const: Denies: fever(s), chills, fatigue, malaise or diaphoresis Card: Denies: chest pain, palpitations, lightheadedness, syncope or orthopnea Resp: Reports: dyspnea and non-productive cough; Denies: hemoptysis or chest congestion GI: Denies: abdominal pain, nausea or vomiting : Denies: dysuria, urinary frequency or urinary urgency Musc: Denies: back pain or extremity pain Skin/Breast: Denies: rash Neuro: Denies: dizziness Endo: Denies: polyuria or polydipsia PFS ED PFSH: Medical History (Updated 08/05/23 @ 15:37 by Armando Lopez DO) Sepsis Community acquired pneumonia Dependence on supplemental oxygen Erectile dysfunction Painful ejaculation Scrotal pain Tachycardia Sleep apnea Chest pain Chronic respiratory failure with hypoxia Bipolar 1 disorder Chronic obstructive pulmonary disease Hyperlipidemia ARPIT (obstructive sleep apnea) HTN (hypertension) Surgical History (Updated 08/05/23 @ 15:37 by Armando Lopez DO) Hx of appendectomy Family History Mother , AT AGE 64 Cancer Diabetes Grandfather Diabetes Father , AT AGE 94 Lung disease Social History Smoking and tobacco/nicotine status: former use of tobacco/nicotine (2002) Quit status (tobacco/nicotine): has quit using Year quit tobacco: 2002 Former quit date comment: Hx of 2 PPD x 50 Years Alcohol intake: former Substance/Drug Use: never Lives independently: Yes Marital status: / service: Yes Current occupational status: retired Do you think of yourself as: Straight/Heterosexual Physical Exam Const: GENERAL APPEARANCE: cooperative ORIENTATION/CONSCIOUSNESS: Yes awake, Yes oriented to person, Yes oriented to place and Yes oriented to time HENMT: COMMON NORMALS: normocephalic, atraumatic and hearing grossly normal bilaterally HEAD & SCALP: normocephalic and atraumatic OTHER: Examination of the mouth no sign acute abscess multiple extracted teeth. No active drainage or abscesses Resp: COMMON NORMALS: normal respiratory effort, No retractions and No use of accessory muscles AUSCULTATION: rhonchi and wheezes Cardio: COMMON NORMALS: regular rhythm and No murmurs present (Cardio) RATE: tachycardic RHYTHM: regular rhythm GI: COMMON NORMALS: Soft to palpation and No hepatosplenomegaly present AUSCULTATION: Yes normoactive bowel sounds PALPATION: Yes Soft to palpation, No Tenderness to palpation present (GI), No Guarding due to palpation present (GI) and Yes No hepatosplenomegaly present Extremity: COMMON NORMALS: normal to inspection, capillary refill normal, no clubbing, cyanosis or edema, no calf tenderness and no pedal edema Neuro: SENSORIUM/ORIENTATION: Yes oriented to person, Yes oriented to place and Yes oriented to time Skin: COMMON NORMALS: no rashes or lesions noted GENERAL SKIN EXAM: no rashes or lesions noted Course Vital Signs: Vital signs: Vital Signs Temperature 99.5 F 08/05/23 11:20 Pulse Rate 84 08/05/23 15:39 Respiratory Rate 82 H 08/05/23 14:00 Blood Pressure 125/80 08/05/23 15:39 Pulse Oximetry 98 08/05/23 15:39 Oxygen Delivery Me thod Nasal Cannula 08/05/23 15:39 Oxygen Flow Rate 6 08/05/23 15:39 MDM - SOB/Dyspnea Medical Decision Making Influenza negative CT the facial bones no sign of dental abscess CT of the chest no sign of PE chest x-ray did not show acute infiltrate. Suspect patient has influenza exacerbation of COPD possible bacteremia from extensive dental work prophylactic antibiotic started cultures pending labs reviewed Medical Records I reviewed the patient's medical records. Lab Data I reviewed the patient's lab results. 08/05/23 11:30 08/05/23 11:30 Labs/Radiology: Radiology Impressions Chest X-Ray 08/05/23 13:01 IMPRESSION: No focal consolidation. Chest CTA 08/05/23 13:03 IMPRESSION: 1. No acute findings in the chest. 2. Chronic findings consistent with COPD. Face CT 08/05/23 13:03 IMPRESSION: 1. No drainable abscess or obvious soft tissue phlegmon identified. 2. Dental findings as reported above. 3. Severe short-segment stenosis of proximal left ICA. Laboratory Results WBC 7.99 10^3/uL (3.29-11.43) 08/05/23 11:30 RBC 4.67 10^6/uL (3.85-5.65) 08/05/23 11:30 Hgb 15.00 g/dL (11.27-16.99) 08/05/23 11:30 Hct 44.8 % (37-53) 08/05/23 11:30 MCV 95.9 fl (82-101) 08/05/23 11:30 MCH 32.1 pg (27-33) 08/05/23 11:30 MCHC 33.5 g/dL (30-55) 08/05/23 11:30 RDW 11.9 % (12.1-15.1) L 08/05/23 11:30 Plt Count 205 10^3/cmm (157-399) 08/05/23 11:30 MPV 8.9 fL (7.4-10.4) 08/05/23 11:30 Neut % (Auto) 77.4 % 08/05/23 11:30 Lymph % (Auto) 14.8 % 08/05/23 11:30 [place] % (Auto) 7.1 % 08/05/23 11:30 Eos % (Auto) 0.1 % 08/05/23 11:30 Baso % (Auto) 0.3 % 08/05/23 11:30 Neut # (Auto) 6.19 10^3/uL (1.8-7.7) 08/05/23 11:30 Lymph # (Auto) 1.2 10^3/uL (0.8-4.8) 08/05/23 11:30 [place] # (Auto) 0.6 10^3/uL (0.2-0.9) 08/05/23 11:30 Eos # (Auto) 0.0 10^3/uL (0.0-0.8) 08/05/23 11:30 Baso # (Auto) 0.0 10^3/uL (0.0-0.1) 08/05/23 11:30 Nucleated RBC % (auto) 0 % 08/05/23 11:30 Nucleated RBCs # 0.0 /100WBC 08/05/23 11:30 Sodium 135 mmol/L (136-145) L 08/05/23 11:30 Potassium 4.2 mmol/L (3.5-5.1) 08/05/23 11:30 Chloride 99 mmol/L (98-107) 08/05/23 11:30 Carbon Dioxide 23 mmol/L (22-29) 08/05/23 11:30 Anion Gap 17.2 (5-19) 08/05/23 11:30 BUN 10 mg/dL (8-23) 08/05/23 11:30 Creatinine 1.1 mg/dL (0.7-1.2) 08/05/23 11:30 GFR Calculation Not Reportable 08/05/23 11:30 Glucose 156 mg/dL (65-115) H 08/05/23 11:30 Calculated Osmolality 282 mOsm/kg (285-295) L 08/05/23 11:30 Lactic Acid 1.6 mmol/L (0.5-2.2) 08/05/23 11:30 Calcium 8.7 mg/dL (8.5-10.5) 08/05/23 11:30 Total Bilirubin 0.3 mg/dL (0.15-1.2) 08/05/23 11:30 AST 19 U/L (0-40) 08/05/23 11:30 ALT 15 U/L (0-41) 08/05/23 11:30 Alkaline Phosphatase 96 U/L (40-130) 08/05/23 11:30 Troponin T Baseline 24 ng/L (0-15) H 08/05/23 11:30 Troponin T 120 Minute 25.86 ng/L (0-15) H 08/05/23 13:49 Delta Troponin T 1.86 ABS# (0-10) 08/05/23 13:49 NT-Pro-B Natriuret Pep 188 pg/mL (0-450) 08/05/23 11:30 Total Protein 7.6 g/dL (6.6-8.7) 08/05/23 11:30 Albumin 3.9 g/dL (3.5-5.2) 08/05/23 11:30 Globulin 3.7 g/dL (1.3-4.6) 08/05/23 11:30 Urine Color Yellow (Yellow) 08/05/23 13:43 Urine Appearance Sl hazy (CLEAR) A 08/05/23 13:43 Urine pH 5 (5-7) 08/05/23 13:43 Ur Specific [place] 1.020 (1.005-1.030) 08/05/23 13:43 Urine Protein Trace (Negative) 08/05/23 13:43 Urine Glucose (UA) Norm (Normal) 08/05/23 13:43 Urine Ketones 2+ (Negative) H 08/05/23 13:43 Urine Blood Neg (Negative) 08/05/23 13:43 Urine Nitrate Negative (Negative) 08/05/23 13:43 Urine Bilirubin 1+ (Negative) H 08/05/23 13:43 Urine Urobilinogen 1 mg/dL (Negative) H 08/05/23 13:43 Ur Leukocyte Esterase Negative (Negative) 08/05/23 13:43 Urine RBC None /hpf (0-2) 08/05/23 13:43 Urine WBC 0-4 /hpf (0-5) H 08/05/23 13:43 Ur Squamous Epith Cells None /hpf (0-5) 08/05/23 13:43 Amorphous Sediment Not Reportable 08/05/23 13:43 Urine Bacteria 1+ /hpf (NONE) H 08/05/23 13:43 Urine Mucus 2+ /hpf 08/05/23 13:43 Adenovirus (PCR) Not detected (NOT DETECT) 08/05/23 11:41 C. pneumoniae DNA (PCR) Not detected (NOT DETECT) 08/05/23 11:41 Coronavirus 229E (PCR) Not detected (NOT DETECT) 08/05/23 11:41 Human Metapneumovir PCR Not detected (NOT DETECT) 08/05/23 11:41 Influenza A (H1) PCR Not detected (NOT DETECT) 08/05/23 11:41 Influ A (H1/09) PCR Detected (NOT DETECT) A 08/05/23 11:41 Influenza A (H3) PCR Not detected (NOT DETECT) 08/05/23 11:41 Influenza Type A (PCR) Detected (NOT DETECT) A 08/05/23 11:41 Influenza Type B (PCR) Not detected (NOT DETECT) 08/05/23 11:41 M. pneumoniae (PCR) Not detected (NOT DETECT) 08/05/23 11:41 Parainfluenza 1 (PCR) Not detected (NOT DETECT) 08/05/23 11:41 Parainfluenza 2 (PCR) Not detected (NOT DETECT) 08/05/23 11:41 Parainfluenza 3 (PCR) Not detected (NOT DETECT) 08/05/23 11:41 Parainfluenza 4 (PCR) Not detected (NOT DETECT) 08/05/23 11:41 RSV Type A (PCR) Not detected (NOT DETECT) 08/05/23 11:41 RSV Type B (PCR) Not detected (NOT DETECT) 08/05/23 11:41 Entero/Rhino (PCR) Not detected (NOT DETECT) 08/05/23 11:41 SARS-CoV-2 (PCR) Not detected (NOT DETECT) 08/05/23 11:41 All radiology interpretation(s) finalized by discharge Discharge Plan Discharge Patient Disposition: Admitted As Inpatient Admit Provider: Omid Hou Clinical Impression: Sepsis, S/P tooth extraction, Acute exacerbation of chronic obstructive airways disease, Influenza A Condition: Stable Coding Level of Care Code ED [employer] for Chencho Josue
[2023-08-05 11:35] LABS: Basophils % 0.3 %; Eosinophils % 0.1 %; Hematocrit 44.8 % (37-53); Lymphocytes # 1.2 10^3/uL (0.8-4.8); Lymphocytes % 14.8 %; Mean Corpuscular HGB Conc 33.5 g/dL (30-55); Mean Corpuscular Hemoglobin 32.1 pg (27-33); Mean Corpuscular Volume 95.9 fl (82-101); Mean Platelet Volume 8.9 fL (7.4-10.4); Monocytes # 0.6 10^3/uL (0.2-0.9); Monocytes % 7.1 %; Neutrophils # 6.19 10^3/uL (1.8-7.7); Neutrophils % 77.4 %; Nucleated Red Blood Cells % 0 %; Platelet Count 205 10^3/cmm (157-399); Red Blood Count 4.67 10^6/uL (3.85-5.65); Red Cell Distribution Width 11.9 % (12.1-15.1); White Blood Count 7.99 10^3/uL (3.29-11.43)
[2023-08-05 11:52] LABS: Alanine Aminotransferase 15 U/L (0-41); Albumin Level 3.9 g/dL (3.5-5.2); Alkaline Phosphatase 96 U/L (40-130); Anion Gap 17.2 (5-19); Aspartate Amino Transferase 19 U/L (0-40); Blood Urea Nitrogen 10 mg/dL (8-23); Calcium 8.7 mg/dL (8.5-10.5); Carbon Dioxide 23 mmol/L (22-29); Chloride 99 mmol/L (98-107); Creatinine Clr Calc Pharmacy 57.8554; Globulin 3.7 g/dL (1.3-4.6); Glucose 156 mg/dL (65-115); Osmolality Calculated 282 mOsm/kg (285-295); Potassium 4.2 mmol/L (3.5-5.1); Sodium 135 mmol/L (136-145); Total Bilirubin 0.3 mg/dL (0.15-1.2); Total Protein 7.6 g/dL (6.6-8.7)
[2023-08-05 11:54] LABS: Troponin(5th) Baseline 24 ng/L (0-15)
[2023-08-05 12:06] LABS: NT Pro B Type Natriuretic Pept 188 pg/mL (0-450)
[2023-08-05] MEDS: ipratropium-albuterol 3 mL Neb INHALATION ×3 (12:14→20:38)
[2023-08-05] MEDS: dexamethasone 10 mg/mL INJ IM (12:44)
[2023-08-05] MEDS: sodium chloride 0.9% 2,245.29 ML 2245.28999999999996 ML IV (12:44)
--- NOTE | 2023-08-05 12:47 | PC.NURSE ---
pt blood pressure 73/53, pt placed in trendelenburg and Dr. Lopez notified. per verbal order to administer normal saline on pressure bag. 2L normal saline administering on pressure bag currently.
[2023-08-05 12:52] LABS: Lactic Sepsis W/Reflex 1.6 mmol/L (0.5-2.2)
--- NOTE | 2023-08-05 13:01 | XRR_ITS ---
PROCEDURE INFORMATION: Exam: XR Chest Exam date and time: 08/05/2023 1:05 PM Age: 78 years old Clinical indication: Cough and dyspnea; Additional info: Dyspnea/cough TECHNIQUE: Imaging protocol: Radiologic exam of the chest. Views: 1 view. COMPARISON: CT angio chest PE protcl [id number] 10/03/2022 7:47 PM FINDINGS: Lungs: No focal consolidation. Pleural spaces: No large pleural effusion. No distinct pneumothorax. Heart/Mediastinum: Cardiomediastinal silhouette is midline and normal in size. Vasculature: Mild calcific disease of the aorta. Bones/joints: No acute osseous findings. XR/XR chest 1V portable [id number] IMPRESSION: No focal consolidation.
--- NOTE | 2023-08-05 13:03 | CTR_ITS ---
PROCEDURE INFORMATION: Exam: CTA Chest With Contrast Exam date and time: 08/05/2023 2:08 PM Age: 78 years old Clinical indication: Hyperventilation; Additional info: Hypoxia/tachycardia TECHNIQUE: Imaging protocol: Computed tomographic angiography of the chest with contrast. Exam focused on the arteries. 3D rendering (Not supervised by radiologist): MIP and/or 3D reconstructed images were created by the technologist. Radiation optimization: All CT scans at this facility use at least one of these dose optimization techniques: automated exposure control; mA and/or kV adjustment per patient size (includes targeted exams where dose is matched to clinical indication); or iterative reconstruction. Contrast material: OMNI 350; Contrast volume: 85 ml; Contrast route: INTRAVENOUS (IV); COMPARISON: CT angio chest PE protcl [id number] 10/03/2022 7:47 PM RADIATION DOSE METRICS: Total DLP (mGy-cm): 382.54 FINDINGS: Pulmonary arteries: No evidence of pulmonary artery thromboembolism. Aorta: Scattered calcific disease of the thoracic aorta and its major branches. Thyroid: Partially imaged thyroid is normal in appearance. Lungs: Hyperinflated lungs. Centrilobular emphysematous changes of the lungs. No distinct focal consolidation. Calcified granuloma in the anterior left lower lobe (axial series 4, image 40). No suspicious pulmonary nodules or masses. Pleural spaces: No pleural effusion. No pneumothorax. Heart: Heart is normal in size. No pericardial effusion. Coronary arteries: Coronary artery calcifications. Lymph nodes: No suspicious lymphadenopathy. Pancreas: Severe fatty atrophy of the pancreas, partially imaged. Bones/joints: Multilevel thoracic spondylosis. No acute osseous findings. Soft tissues: Visualized superficial soft tissues are within normal limits. CT/CT angio chest PE protcl [id number] IMPRESSION: 1. No acute findings in the chest. 2. Chronic findings consistent with COPD.
--- NOTE | 2023-08-05 13:03 | CTR_ITS ---
PROCEDURE INFORMATION: Exam: CT Maxillofacial With Contrast Exam date and time: 08/05/2023 2:11 PM Age: 78 years old Clinical indication: Jaw pain and maxilla pain (right and/or left not specified); Additional info: Recent dental work sepsis TECHNIQUE: Imaging protocol: Computed tomography of the face with contrast. Radiation optimization: All CT scans at this facility use at least one of these dose optimization techniques: automated exposure control; mA and/or kV adjustment per patient size (includes targeted exams where dose is matched to clinical indication); or iterative reconstruction. Contrast material: OMNI 350; Contrast volume: 40 ml; Contrast route: INTRAVENOUS (IV); COMPARISON: No relevant prior studies available. RADIATION DOSE METRICS: Total DLP (mGy-cm): 710.08 FINDINGS: No acute suspicious soft tissue abnormality identified. No evidence of drainable abscess. Fat planes in the floor of mouth and parapharyngeal spaces are preserved. No aggressive bone destruction identified. There are several empty tooth sockets that may relate to recent dental extractions. Possibility of infection localized to these regions cannot be excluded with certainty. Please correlate with clinical exam. Broken and/or carious remaining teeth are noted. Mild mucosal thickening in the ethmoid sinuses; otherwise, paranasal sinuses are well-aerated. No acute orbital abnormality identified. Chronic multilevel cervical degenerative disc disease and facet arthropathy are incompletely imaged. Short-segment severe stenosis of proximal left ICA is present, likely 80-90%. There likely is 40-50% stenosis involving right carotid bifurcation and origin of right ICA. CT/CT facial bones w con [id number] IMPRESSION: 1. No drainable abscess or obvious soft tissue phlegmon identified. 2. Dental findings as reported above. 3. Severe short-segment stenosis of proximal left ICA.
--- NOTE | 2023-08-05 13:25 | ECG_ITS ---
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 Measurements Intervals [place] Rate: 110 P: 82 NM: 143 QRS: 78 QRSD: 85 T: 76 QT: 310 QTc: 420 Interpretive Statements SINUS TACHYCARDIA Otherwise normal EKG Compared to ECG 08/05/2023 11:40:10 No significant changes Electronically Signed On 08-06-2023 13:50:31 CDT by Aracelis Chandler M.D. [id number]
[2023-08-05 13:30] LABS: Adenovirus Not Detected (NOT DETECT); Chlamydia Pneumoniae Not Detected (NOT DETECT); Coronavirus 229E,HKU1,NL63,OC4 Not Detected (NOT DETECT); Human Metapneumovirus Not Detected (NOT DETECT); Human Rhinovirus/Enterovirus Not Detected (NOT DETECT); Influenza A Detected (NOT DETECT); Influenza A H1 Not Detected (NOT DETECT); Influenza A H1-2009 Detected (NOT DETECT); Influenza A H3 Not Detected (NOT DETECT); Influenza B Not Detected (NOT DETECT); Mycoplasma Pneumoniae Not Detected (NOT DETECT); Parainfluenza Virus Type 1 Not Detected (NOT DETECT); Parainfluenza Virus Type 2 Not Detected (NOT DETECT); Parainfluenza Virus Type 3 Not Detected (NOT DETECT); Parainfluenza Virus Type 4 Not Detected (NOT DETECT); Respiratory Syncytial Virus A Not Detected (NOT DETECT); Respiratory Syncytial Virus B Not Detected (NOT DETECT); SARS-COV-2 Not Detected (NOT DETECT)
--- NOTE | 2023-08-05 13:42 | P.HP_ITS ---
Providers/Chief Complaint 2 Primary Care Provider: Willow Plasencia MD Chief Complaint: SOB History of Present Illness 78-year-old gentleman with history of COPD normally on 5 L of oxygen, also reported history of interstitial lung disease/fibrosis, CHF, HTN, sleep apnea, recently received 2 courses of amoxicillin after dental extractions, still feeling some oozing from dental sockets, states feels purulent, had not been feeling well in the last 3 days, with cough, some chest congestion, some mild sputum production, was feeling even worse this morning and was convinced by family and his caregiver to come into ER for evaluation. In ER he is found to be hypotensive, blood pressure 73/53, with sinus tachycardia up to 140s, tachypnea 25, requiring 6 L nasal cannula oxygen. Yesterday had been nausea, denies vomiting. [place] some acid reflux. He states that he had stopped taking his medications for a while a while back, he does take a number of pain medications due to chronic back and neck pain and follows with pain clinic. He states that he resumed taking all his other medications recently. He states he did not take any blood pressure medicines this morning. Review of Systems 2 Const: Reports: fatigue and malaise; Denies: fever(s), chills or body aches ENMT: Denies: throat pain Card: Denies: chest pain, edema, pre-syncope or dyspnea on exertion Resp: Denies: dyspnea, productive cough, change in phlegm color or hemoptysis GI: Reports: nausea; Denies: abdominal pain, vomiting, diarrhea, constipation, hematochezia or melena : Denies: flank pain, difficulty urinating, urinary frequency or hematuria Musc: Denies: back pain, joint swelling or joint redness Skin/Breast: Denies: rash or new lesions Neuro: Denies: headache(s) or weakness in extremities Medications/Allergies Home Medications Medication Instructions Recorded Confirmed Last Taken Type omega 2-qeq-zjy-fish oil 1,000 mg 1 cap PO DAILY 08/19/19 08/05/23 Unknown History (120 mg-180 mg) capsule (Fish Oil) atorvastatin 40 mg tablet 40 mg PO DAILY 09/15/20 08/05/23 Unknown History carbamazepine 200 mg tablet 600 mg PO BID 09/15/20 08/05/23 Unknown History lisinopril 40 mg tablet 20 mg PO DAILY 09/15/20 08/05/23 Unknown History albuterol sulfate 2.5 mg/3 mL 2.5 mg inhalation Q4H PRN 09/16/20 08/05/23 Unknown History (0.083 %) solution for nebulization Shortness Of Breath multivitamin 1 tab PO DAILY 09/23/20 08/05/23 Unknown History cetirizine 10 mg tablet 10 mg PO DAILY PRN Allergy Symptoms 11/03/20 08/05/23 Unknown History hydrocodone 10 mg-acetaminophen 1 - 2 tab PO .Q4-6H PRN Pain 11/03/20 08/05/23 Unknown History 325 mg tablet oxybutynin chloride 5 mg tablet 5 mg PO DAILY 11/03/20 08/05/23 Unknown History vitamin E (dl, acetate) 180 mg 45 mg PO DAILY 11/03/20 08/05/23 Unknown History (400 unit) capsule albuterol sulfate 90 mcg/actuation 2 inh inhalation Q8H #8.5 grams 02/02/21 08/05/23 Unknown Rx aerosol inhaler budesonide 160 mcg-glycopyr 9 2 inh inhalation BID 30 days #10.7 12/28/22 08/05/23 Unknown Rx mcg-formot 4.8 mcg/actuation HFA grams inhaler (Breztri Aerosphere) ipratropium 0.5 mg-albuterol 3 mg 3 ml inhalation Q6H PRN Shortness 05/08/23 08/05/23 Unknown History (2.5 mg base)/3 mL nebulization Of Breath Or Wheezing soln amoxicillin 500 mg capsule 500 mg PO TID 08/05/23 08/05/23 Unknown History artificial tears(hypromellose) 0.3 1 drp ophthalmic (eye) Q4H PRN Dry 08/05/23 08/05/23 Unknown History % eye drops Eye(S) cholecalciferol (vitamin D3) 25 25 mcg PO DAILY 08/05/23 08/05/23 Unknown History mcg (1,000 unit) capsule (Vitamin D3) diphenhydramine HCl 25 mg capsule 25 mg PO TID PRN Allergy Symptoms 08/05/23 08/05/23 Unknown History (Benadryl) tamsulosin 0.4 mg capsule 0.4 mg PO QPM 08/05/23 08/05/23 Unknown History Allergies Allergy/AdvReac Type Severity Reaction Status Date / Time levofloxacin [From Levaquin] Allergy Severe Unknown Verified 05/08/23 15:48 azithromycin Allergy Intermediate rash Verified 05/08/23 15:48 shrimp Allergy Intermediate rash Verified 05/08/23 15:48 seafood Allergy ALGY-Rash Uncoded 05/08/23 15:48 PFSH Acute 2 PFSH: Medical History (Updated 08/05/23 @ 13:50 by Omid Hou MD) Sepsis Community acquired pneumonia Dependence on supplemental oxygen Erectile dysfunction Painful ejaculation Scrotal pain Tachycardia Sleep apnea Chest pain Chronic respiratory failure with hypoxia Bipolar 1 disorder Chronic obstructive pulmonary disease Hyperlipidemia ARPIT (obstructive sleep apnea) HTN (hypertension) Surgical History (Updated 08/05/23 @ 13:50 by Omid Hou MD) Hx of appendectomy Family History Mother , AT AGE 64 Cancer Diabetes Grandfather Diabetes Father , AT AGE 94 Lung disease Social History Smoking and tobacco/nicotine status: former use of tobacco/nicotine (2002) Quit status (tobacco/nicotine): has quit using Year quit tobacco: 2002 Former quit date comment: Hx of 2 PPD x 50 Years Alcohol intake: former Substance/Drug Use: never Lives independently: Yes Marital status: / service: Yes Current occupational status: retired Do you think of yourself as: Straight/Heterosexual Vitals/I&O/Wt Last Vital Signs Temp 99.5 F 08/05/23 11:20 Pulse 114 H 08/05/23 12:28 Resp 25 H 08/05/23 12:17 BP 73/53 08/05/23 12:40 Pulse Ox 98 08/05/23 12:28 O2 Del Method Nasal Cannula 08/05/23 12:17 O2 Flow Rate 6 08/05/23 12:17 Weight last 48 hrs Weight 74.843 kg Physical Exam 2 Narrative: Accompanied by his caregiver Const: COMMON NORMALS: patient oriented x3 and alert GENERAL APPEARANCE: c ooperative ORIENTATION/CONSCIOUSNESS: Yes awake OTHER: Legs elevated in ER gurnemesio HENMT: COMMON NORMALS: oropharynx normal OTHER: Dental extractions, points to the bothersome ones are in the mandible, I see several extractions, although do not see any purulent discharge or bleeding at current time. There is minimal swelling. Neck/C-Spine: COMMON NORMALS: no JVD Resp: AUSCULTATION: diminished lung sounds Cardio: COMMON NORMALS: no JVD, regular rhythm, S1 normal heart sound present, S2 normal heart sound present and No murmurs present (Cardio) RHYTHM: regular rhythm HEART SOUNDS: S1 normal heart sound present and S2 normal heart sound present GI: COMMON NORMALS: Normal to inspection, nondistended, normoactive bowel sounds present, Soft to palpation and non-tender PALPATION: Yes Soft to palpation Extremity: COMMON NORMALS: no joint enlargement and no pedal edema Neuro: COMMON NORMALS: patient oriented x3 and moves all extremities S ENSORIUM/ORIENTATION: Yes alert Skin: COMMON NORMALS: no rashes or lesions noted GENERAL SKIN EXAM: no rashes or lesions noted Data 08/05/23 11:30 08/05/23 11:30 A&P Assessment and plan (1) Hypotension: Hypotensive on presentation, blood pressure 73/53 with malaise, fatigue this morning, has not been feeling well for about 3 days with progressive feeling of the same, also some dry cough, yesterday had some nausea. Reviewed vitals, CBC, CMP, UA and respiratory viral panels are pending. Reviewed chest x-ray, reviewed EKG, on my interpretation sinus tachycardia, no evidence of arrhythmia. Reviewed ER note, discussed with ER provider. Noted SIRS, with sinus tachycardia 114, respiratory rate with tachypnea, 25. Concern for possible sepsis. Blood culture collected. Lactic acid reviewed, 1.6. Received empiric antibiotic coverage with Zosyn. Source of sepsis unclear, initially consideration of possible pneumonia with respiratory symptoms, tachypnea, tachycardia, however, with recent dental extractions, subjective purulent secretion from extraction sockets, additional assessment underway to exclude dental abscess as a potential source. Reassess blood culture for any bacteremia. UA is pending. Respiratory viral panel appears to be returning with influenza. Severe influenza with hemodynamic instability, worsening oxygen requirement, will start Tamiflu. Additionally with hypotension, tachycardia, dyspnea, immobilization, at risk of PE, denies any history of DVT or PE in the past. Discussed with him additional assessment with CT angiogram, risks and benefits to assess for any possible PE, risk of contrast nephropathy. Troponin reviewed, baseline 24. NT proBNP 188. No chest pain or pressure. (2) Sinus tachycardia: Suspect related to the above conditions, no sign of arrhythmia. Monitor on telemetry. (3) Tachypnea: Suspect related to finding of influenza as above, but additional assessment underway due to risk of PE, additional assessment for possible sepsis, evaluation for any possible dental abscess. (4) S/P tooth extraction: Multiple extractions recently, had 2 courses of Augmentin. Still feels some discharge from sockets which to him feels like purulence. I do not appreciate purulence's exam, no bleeding, there is mild swelling around the extraction sockets which may not be unexpected. Additional assessment underway for any possible dental abscess as above. Follow-up blood culture. (5) Chronic obstructive pulmonary disease: Moderate exacerbation with cough, some sputum production, although he has not coughed it up to look at it. Currently requiring 6 L of oxygen. Normally on 5 L. Diminished air entry on exam. Will add breathing treatments, scheduled and as needed DuoNebs. Hold off on systemic steroids for now, rule out bacteremia, sepsis, consider if addition will be needed. For now we will add some lower dose inhaled steroid. Plan Interstitial lung disease/fibrosis CHF, currently not in exacerbation HTN, hypotensive, hold antihypertensives for now. Reassess blood pressures. Sleep apnea Goals of care discussion: He states in case of cardiopulmonary rest he would want attempted resuscitation, he has a son and daughter who could make decisions on his behalf if needed, although his son has not been in good health. He states he would want attempted resuscitation to an extent , to be determined depending on response and per discussion either with him or his children. [place], he is [facility], discussed with ammunition and explosives handler, today nobody can be notified, but [facility] will need to be notified if he is still here on Monday. Please discussed with case consultant. Attestations 2 Medical Necessity Statement*: Admission of over 2 midnights anticipated for assessment of management of possible sepsis, with hypotension, tachycardia, tachypnea, influenza, assessment for possible PE, assessment for possible dental abscess, moderate COPD exacerbation. Diagnoses Hypotension I95.9 Sinus tachycardia R00.0 Tachypnea R06.82 S/P tooth extraction K08.409 Chronic obstructive pulmonary disease J44.9
--- NOTE | 2023-08-05 13:42 | PC.PHAR ---
[facility]ILL[facility]- PT UNABLE TO VERIFY MEDICATIONS- WAITED FOR CAREGIVER TO BRING IN MEDICATION BOTTLES WELL PTS VITAMINS TO VERIFY MEDICATIONS- PTS CAREGIVER STS SHE DOES NOT THINK PT HAS TAKEN HIS MEDICATION CORRECTLY FOR A WHILE- PT SETS HIS OWN MEDS UP AT THIS TIME
[2023-08-05] MEDS: piperacillin-tazobactam 3.375 GM in sodium chloride 0.9% (plus) 50 ML IV ×2 (13:58→20:57)
[2023-08-05 14:02] LABS: Add Urine Culture? No; Add Urine Microscopic? YES; Bacteria Urine 1+ /hpf; Bilirubin Urine 1+ (Negative); Blood Urine Neg (Negative); Glucose Urine UA Norm (Normal); Ketones Urine 2+ (Negative); Leukocyte Esterase Urine Negative (Negative); Mucus Urine 2+ /hpf; Nitrate Urine Negative (Negative); Protein Urine Trace (Negative); Urine Appearance SL Hazy (CLEAR); Urine Color Yellow (Yellow); Urobilinogen Urine 1 mg/dL (Negative); WBC Urine 0-4 /hpf (0-5); pH Urine 5 (5-7)
--- NOTE | 2023-08-05 14:11 | PC.NURSE ---
Medication Delay: Tamiflu @1400 d/t not being in Pyxis and Lovenox @1415 d/t not being verified at this time.
[2023-08-05] MEDS: iohexol 350 mg/mL 500 mL Btl (per mL) IV ×2 (14:12→14:13)
[2023-08-05 14:24] LABS: Troponin 5 2HR 25.86 ng/L (0-15); Troponin 5 2HR Delta 1.86 ABS# (0-10)
[2023-08-05] MEDS: oseltamivir phosphate 75 mg Capsule PO ×2 (14:35→21:16)
[2023-08-05] MEDS: enoxaparin 40 mg/0.4 mL Syringe SUBCUT (14:37)
--- NOTE | 2023-08-05 16:17 | PC.NURSE ---
Ptarrives to ICU . Alert and oriented. 6lpm/NC. Grunting with respirations noted. O2 sats at 97%.
--- NOTE | 2023-08-05 17:28 | ECG_ITS ---
[facility] Test Date: 2023-08-05 Pat Name: Gamal Forrester Department: Room: ICU02 Gender: Male [employer]: : 1945 Requested By: Armando Strong Order Number: [id number] Di MD: Aracelis Chandler M.D. Measurements Intervals [place] Rate: 99 P: 74 WV: 143 QRS: 63 QRSD: 89 T: 70 QT: 339 QTc: 436 Interpretive Statements SINUS RHYTHM Normal EKG Compared to ECG 08/05/2023 13:15:44 Sinus tachycardia no longer present Electronically Signed On 08-06-2023 13:48:49 CDT by Aracelis Chandler M.D. [id number]
[2023-08-05] MEDS: acetaminophen 325 mg Tablet 650 MG PO (17:46)
[2023-08-05] MEDS: sodium chloride 0.9% 1,000 ML 100 ML IV (17:49)
[2023-08-05 17:56] LABS: Troponin 5 6HR 21.01 ng/L (0-15)
[2023-08-05 18:00] LABS: Troponin 5 6HR Delta -2.99 ng/L (0-12)
--- NOTE | 2023-08-05 19:24 | PC.NURSE ---
Pt was concerned about not having his Hydrocodone and Tegretol to take at dinner. Dr Hou notified via secure messaging. Home meds entered while pt in ED, but last taken date unknown. Unable to confirm last date as pt is unsure himself. He was able to relate that his caregiver did bring in the med bottles for the ED nurse to review. Messaging with physician continues as this is being sorted out. Pt is beginning to get agitated about not having his medication (Hydrocodone and Tegretol specifically) , he states that he going to have a seizure if he does not get them. Attempts to clarify last known dose unsuccessful, he stated he has not had any of his meds today. I was laid up in bed yesterday and unable to get to them . When asked about the caregiver, he stated she had another engagement [place] the [place].
[2023-08-05] MEDS: budesonide 0.5 mg/2 mL Neb 0.25 MG INHALATION (20:38)
[2023-08-05] MEDS: HYDROcodone-acetaminophen 10-325 mg Tablet 1 TAB PO (20:57)
[2023-08-05] MEDS: carBAMazepine 200 mg Tablet 600 MG PO (22:06)
--- NOTE | 2023-08-05 22:47 | PC.NURSE ---
Pt stated he only takes 200 mg (1 tablet) tegretol at home and the bottle that was brought in to the ED to verify his home meds was not the right bottle and he was just using it to carry his pills, pt stated that dose was a pharmacy error. Pt only took one of the three tablets ordered, other two tablets returned to [facility]. notified and correct dose ordered.
[2023-08-06] VITALS (29 sets, daily range): BP systolic 116–181; BP diastolic 72–112; PULSE 72–131; RESP 15–35; TEMP 36–36.7; O2SAT 95–100; BMI 24.0
[2023-08-06] MEDS: amlodipine 10 mg Tablet PO ×2 (00:17→08:47)
[2023-08-06] MEDS: ipratropium-albuterol 3 mL Neb INHALATION ×4 (02:13→19:47)
[2023-08-06] MEDS: HYDROcodone-acetaminophen 10-325 mg Tablet 1 TAB PO ×3 (02:28→14:34)
[2023-08-06] MEDS: sodium chloride 0.9% 1,000 ML 100 ML IV ×2 (04:32→14:35)
[2023-08-06] MEDS: piperacillin-tazobactam 3.375 GM in sodium chloride 0.9% (plus) 50 ML IV ×3 (04:32→21:09)
[2023-08-06 05:01] LABS: Basophils % 0.1 %; Hematocrit 41.7 % (37-53); Lymphocytes # 0.7 10^3/uL (0.8-4.8); Lymphocytes % 7.5 %; Mean Corpuscular HGB Conc 33.6 g/dL (30-55); Mean Corpuscular Hemoglobin 32.6 pg (27-33); Mean Platelet Volume 9.8 fL (7.4-10.4); Monocytes # 0.8 10^3/uL (0.2-0.9); Neutrophils # 8.14 10^3/uL (1.8-7.7); Neutrophils % 84.1 %; Nucleated Red Blood Cells % 0 %; Platelet Count 173 10^3/cmm (157-399); Red Cell Distribution Width 12.2 % (12.1-15.1); White Blood Count 9.68 10^3/uL (3.29-11.43)
[2023-08-06] MEDS: budesonide 0.5 mg/2 mL Neb 0.25 MG INHALATION ×2 (07:52→19:47)
[2023-08-06] MEDS: atorvastatin 40 mg Tablet PO (08:47)
[2023-08-06] MEDS: carBAMazepine 200 mg Tablet PO ×2 (08:47→17:28)
[2023-08-06 09:02] LABS: Alanine Aminotransferase 18 U/L (0-41); Albumin Level 3.5 g/dL (3.5-5.2); Alkaline Phosphatase 80 U/L (40-130); Anion Gap 13.9 (5-19); Aspartate Amino Transferase 23 U/L (0-40); Blood Urea Nitrogen 10 mg/dL (8-23); Calcium 8.2 mg/dL (8.5-10.5); Carbon Dioxide 23 mmol/L (22-29); Chloride 106 mmol/L (98-107); Creatinine Clr Calc Pharmacy 72.0271; Globulin 3.6 g/dL (1.3-4.6); Glucose 133 mg/dL (65-115); Osmolality Calculated 289 mOsm/kg (285-295); Potassium 3.9 mmol/L (3.5-5.1); Sodium 139 mmol/L (136-145); Total Bilirubin 0.2 mg/dL (0.15-1.2); Total Protein 7.1 g/dL (6.6-8.7)
[2023-08-06] MEDS: oseltamivir phosphate 75 mg Capsule PO ×2 (09:07→21:09)
[2023-08-06] MEDS: enoxaparin 40 mg/0.4 mL Syringe SUBCUT (14:33)
--- NOTE | 2023-08-06 17:07 | P.PN_ITS ---
Subjective 2 Subjective: on 4.5 L o2 afebrile Vitals/I&O/Wt Last Vital Signs Temp 97.8 F 08/06/23 12:00 Pulse 88 08/06/23 16:00 Resp 35 H 08/06/23 16:00 BP 146/80 08/06/23 16:00 Pulse Ox 100 08/06/23 16:00 O2 Del Method Nasal Cannula 08/06/23 14:31 O2 Flow Rate 4.5 08/06/23 14:31 08/06/23 08/06/23 08/06/23 06:59 14:59 22:59 Intake Total 1050 / 3585.29 1050 / 1050 450 / 1500 Output Total 200 / 300 Balance 850 / 3285.29 1050 / 1050 450 / 1500 Weight last 48 hrs Weight 172 lb 11.2 oz Weight 172 lb 11.2 oz Weight 170 lb 8 oz Weight 165 lb Physical Exam 2 Narrative: NAD Const: COMMON NORMALS: patient oriented x3 and alert GENERAL APPEARANCE: c ooperative ORIENTATION/CONSCIOUSNESS: Yes awake HENMT: COMMON NORMALS: oropharynx normal Neck/C-Spine: COMMON NORMALS: no JVD Resp: AUSCULTATION: diminished lung sounds Cardio: COMMON NORMALS: no JVD, regular rhythm, S1 normal heart sound present, S2 normal heart sound present and No murmurs present (Cardio) RHYTHM: regular rhythm HEART SOUNDS: S1 normal heart sound present and S2 normal heart sound present GI: COMMON NORMALS: Normal to inspection, nondistended, normoactive bowel sounds present, Soft to palpation and non-tender PALPATION: Yes Soft to palpation Extremity: COMMON NORMALS: no joint enlargement and no pedal edema Neuro: COMMON NORMALS: patient oriented x3 and moves all extremities S ENSORIUM/ORIENTATION: Yes alert Skin: COMMON NORMALS: no rashes or lesions noted GENERAL SKIN EXAM: no rashes or lesions noted Data 08/06/23 03:20 08/06/23 08:37 A&P Assessment and plan (1) Hypotension: Hypotensive on presentation, blood pressure 73/53 with malaise, fatigue this morning, has not been feeling well for about 3 days with progressive feeling of the same, also some dry cough, yesterday had some nausea. Reviewed vitals, CBC, CMP, UA and respiratory viral panels are pending. Reviewed chest x-ray, reviewed EKG, on my interpretation sinus tachycardia, no evidence of arrhythmia. Reviewed ER note, discussed with ER provider. Noted SIRS, with sinus tachycardia 114, respiratory rate with tachypnea, 25. Concern for possible sepsis. Blood culture collected. Lactic acid reviewed, 1.6. Received empiric antibiotic coverage with Zosyn. Source of sepsis unclear, initially consideration of possible pneumonia with respiratory symptoms, tachypnea, tachycardia, however, with recent dental extractions, subjective purulent secretion from extraction sockets, additional assessment underway to exclude dental abscess as a potential source. cx negative (2) S/P tooth extraction: Multiple extractions recently, had 2 courses of Augmentin. Still feels some discharge from sockets which to him feels like purulence. I do not appreciate purulence's exam, no bleeding, there is mild swelling around the extraction sockets which may not be unexpected. Additional assessment underway for any possible dental abscess as above. Follow-up blood culture. (3) Chronic obstructive pulmonary disease: Moderate exacerbation with cough, some sputum production, although he has not coughed it up to look at it. Currently requiring 6 L of oxygen. Normally on 5 L. Diminished air entry on exam. Will add breathing treatments, scheduled and as needed DuoNebs. Hold off on systemic steroids for now, rule out bacteremia, sepsis, consider if addition will be needed. For now we will add some lower dose inhaled steroid. (4) Flu: on tamiflu continue empiric abx, O2, inhalers ok to bring home inhalers Plan Interstitial lung disease/fibrosis CHF, currently not in exacerbation HTN, hypotensive, hold antihypertensives for now. Reassess blood pressures. Sleep apnea FYI, he is a [facility] patient, discussed with vulcanized fiber unit operator, today nobody can be notified, but [facility] will need to be notified if he is still here on Monday. Please discussed with caseworker protective services. Attestations 2 Medical Necessity Statement*: Gamal Forrester requires ongoing inpatient care for copd exacerbation Coding Level of Care Code 92924 Diagnoses Hypotension I95.9 S/P tooth extraction K08.409 Chronic obstructive pulmonary disease J44.9 Flu J11.1
[2023-08-06] MEDS: tamsulosin 0.4 mg Capsule 0.400000000000000022 MG PO (17:29)
[2023-08-07] VITALS (19 sets, daily range): BP systolic 129–160; BP diastolic 70–120; PULSE 74–124; RESP 14–69; TEMP 36.1–37.1; O2SAT 97–100; BMI 24.3
[2023-08-07] MEDS: sodium chloride 0.9% 1,000 ML 100 ML IV ×3 (01:32→22:26)
[2023-08-07] MEDS: HYDROcodone-acetaminophen 10-325 mg Tablet 1 TAB PO ×3 (02:07→14:34)
[2023-08-07] MEDS: ipratropium-albuterol 3 mL Neb INHALATION ×3 (03:35→14:54)
[2023-08-07] MEDS: piperacillin-tazobactam 3.375 GM in sodium chloride 0.9% (plus) 50 ML IV ×3 (04:49→22:26)
[2023-08-07] MEDS: budesonide 0.5 mg/2 mL Neb 0.25 MG INHALATION ×2 (08:17→20:18)
[2023-08-07] MEDS: oseltamivir phosphate 75 mg Capsule PO ×2 (08:45→22:26)
[2023-08-07] MEDS: amlodipine 10 mg Tablet PO (08:45)
[2023-08-07] MEDS: carBAMazepine 200 mg Tablet PO (08:45)
[2023-08-07] MEDS: atorvastatin 40 mg Tablet PO (08:45)
--- NOTE | 2023-08-07 10:02 | PC.NURSE ---
Patient educated on importance of position changing and prevention of pressure injury. Patient educated on importance of getting up to chair and attempting ADL's. Patient at this time is refusing position change and up to recliner at bedside. Patient states he does not use a cane or walker at home, but uses furniture to get around. shift nurse manager nursing stated he gets to BSC with one assist. Will continue to strongly encourage ADL's and position changes.
--- NOTE | 2023-08-07 11:11 | PC.NURSE ---
Patient notified of pending transfer to Medical surgical floor, room 260. Patient stated he would text his enrollment services vice president so that she could come visit him. Report called to second floor RNTahmina.
--- NOTE | 2023-08-07 11:46 | PC.NURSE ---
Patient transferred to medical surgical floor room 260 on 5L NC via bed. Patient requested to stay in ICU bed. MS nurse Tahmina at bedside, NS running at 100mls/hr R AC 20G. Patient oriented to room, instructed sap consultant light use. Patient had no requests, but did express concern over moving from ICU. Patient educated on plan of care and assured that plan will continue with staff on second floor. Patient worried that Dr. Would not see him on second floor, patient assured that Dr would still see him. Patient assured respiratory would continue with care on second floor. No further concerns expressed to me, no questions, Approximate time of transfer 1144.
[2023-08-07] MEDS: oxybutynin 5 mg Tablet PO (12:07)
--- NOTE | 2023-08-07 13:04 | PM.PN ---
Subjective Subjective: Afebrile. Currently on 6 L. Reports having significant weakness. Vitals/I&O/Wt Last Vital Signs Temp 97.0 F L 08/07/23 08:34 Pulse 85 08/07/23 08:10 Resp 16 08/07/23 08:10 BP 134/83 08/07/23 08:00 Pulse Ox 100 08/07/23 08:10 O2 Del Method Nasal Cannula 08/07/23 08:10 O2 Flow Rate 6 08/07/23 08:10 08/06/23 08/07/23 08/07/23 22:59 06:59 14:59 Intake Total 740 / 1790 1050 / 2840 971.667 / 971.667 Output Total 550 / 550 200 / 750 250 / 250 Balance 190 / 1240 850 / 2090 721.667 / 721.667 Weight last 48 hrs Weight 174 lb 9 oz Weight 174 lb 9 oz Weight 172 lb 11.2 oz Weight 172 lb 11.2 oz Weight 170 lb 8 oz Physical Exam Narrative: NAD Const: COMMON NORMALS: patient oriented x3 and alert GENERAL APPEARANCE: cooperative ORIENTATION/CONSCIOUSNESS: Yes awake HENMT: COMMON NORMALS: oropharynx normal Neck/C-Spine: COMMON NORMALS: no JVD Resp: AUSCULTATION: diminished lung sounds Cardio: COMMON NORMALS: no JVD, regular rhythm, S1 normal heart sound present, S2 normal heart sound present and No murmurs present (Cardio) RHYTHM: regular rhythm HEART SOUNDS: S1 normal heart sound present and S2 normal heart sound present GI: COMMON NORMALS: Normal to inspection, nondistended, normoactive bowel sounds present, Soft to palpation and non-tender PALPATION: Yes Soft to palpation Extremity: COMMON NORMALS: no joint enlargement and no pedal edema Neuro: COMMON NORMALS: patient oriented x3 and moves all extremities SENSORIUM/ORIENTATION: Yes alert Skin: COMMON NORMALS: no rashes or lesions noted GENERAL SKIN EXAM: no rashes or lesions noted Data 08/06/23 03:20 08/06/23 08:37 A&P Assessment and plan (1) Hypotension: Hypotensive on presentation, blood pressure 73/53 with malaise, fatigue this morning, has not been feeling well for about 3 days with progressive feeling of the same, also some dry cough, yesterday had some nausea. Reviewed vitals, CBC, CMP, UA and respiratory viral panels are pending. Reviewed chest x-ray, reviewed EKG, on my interpretation sinus tachycardia, no evidence of arrhythmia. Reviewed ER note, discussed with ER provider. Noted SIRS, with sinus tachycardia 114, respiratory rate with tachypnea, 25. Concern for possible sepsis. Blood culture collected. Lactic acid reviewed, 1.6. Received empiric antibiotic coverage with Zosyn. Source of sepsis unclear, initially consideration of possible pneumonia with respiratory symptoms, tachypnea, tachycardia, however, with recent dental extractions, subjective purulent secretion from extraction sockets, additional assessment underway to exclude dental abscess as a potential source. cx negative (2) S/P tooth extraction: Multiple extractions recently, had 2 courses of Augmentin. Still feels some discharge from sockets which to him feels like purulence. I do not appreciate purulence's exam, no bleeding, there is mild swelling around the extraction sockets which may not be unexpected. Additional assessment underway for any possible dental abscess as above. Follow-up blood culture. (3) Chronic obstructive pulmonary disease: Moderate exacerbation with cough, some sputum production, although he has not coughed it up to look at it. Currently requiring 6 L of oxygen. Normally on 5 L. Diminished air entry on exam. Will add breathing treatments, scheduled and as needed DuoNebs. Hold off on systemic steroids for now, rule out bacteremia, sepsis, consider if addition will be needed. For now we will add some lower dose inhaled steroid. (4) Flu: on tamiflu continue empiric abx, O2, inhalers ok to bring home inhalers (5) Weakness: Check TSH, CPK, phosphorus. Physical therapy consultation Plan Interstitial lung disease/fibrosis CHF, currently not in exacerbation HTN, hypotensive, hold antihypertensives for now. Reassess blood pressures. Sleep apnea FYI, he is a [facility] patient, discussed with munitions handler supervisor, today nobody can be notified, but [facility] will need to be notified if he is still here on Monday. Attestations Medical Necessity Statement*: Gamal Forrester requires ongoing inpatient care for rehab, oxygen Coding Level of Care Code 58981 Diagnoses Hypotension I95.9 S/P tooth extraction K08.409 Chronic obstructive pulmonary disease J44.9 Flu J11.1 Weakness R53.1
--- NOTE | 2023-08-07 13:53 | PC.SOCIAL ---
Pg 2 IMM Updated pt on IMM. No questions voiced. Provided pt a copy. Initialed, dated, & timed a copy & placed in chart.
[2023-08-07] MEDS: enoxaparin 40 mg/0.4 mL Syringe SUBCUT (14:33)
[2023-08-07] MEDS: albuterol 2.5 mg/3 mL Neb INHALATION (20:18)
[2023-08-08] VITALS (9 sets, daily range): BP systolic 113–173; BP diastolic 70–88; PULSE 77–114; RESP 16–20; TEMP 36.5–37; O2SAT 94–98
[2023-08-08] MEDS: HYDROcodone-acetaminophen 10-325 mg Tablet 1 TAB PO ×3 (03:14→20:22)
[2023-08-08] MEDS: piperacillin-tazobactam 3.375 GM in sodium chloride 0.9% (plus) 50 ML IV ×3 (06:00→20:23)
[2023-08-08 06:47] LABS: Creatine Phosphokinase 81 U/L (39-308); Phosphorus 2.8 mg/dL (2.5-4.5)
[2023-08-08] MEDS: budesonide 0.5 mg/2 mL Neb 0.25 MG INHALATION ×2 (09:14→21:47)
[2023-08-08] MEDS: ipratropium-albuterol 3 mL Neb INHALATION ×3 (09:14→21:47)
[2023-08-08] MEDS: oseltamivir phosphate 75 mg Capsule PO ×2 (09:22→20:22)
[2023-08-08] MEDS: amlodipine 10 mg Tablet PO (09:22)
[2023-08-08] MEDS: oxybutynin 5 mg Tablet PO (09:22)
[2023-08-08] MEDS: sodium chloride 0.9% 1,000 ML 100 ML IV ×2 (09:23→20:22)
[2023-08-08] MEDS: enoxaparin 40 mg/0.4 mL Syringe SUBCUT (14:22)
--- NOTE | 2023-08-08 14:25 | P.PN_ITS ---
Subjective 2 Subjective: Feeling better. Reports breathing easier. Still reports has some weakness. rash reported on abdomen Vitals/I&O/Wt Last Vital Signs Temp 97.7 F 08/08/23 07:28 Pulse 112 H 08/08/23 14:20 Resp 20 H 08/08/23 14:20 BP 173/88 08/08/23 07:28 Pulse Ox 97 08/08/23 14:20 O2 Del Method Nasal Cannula 08/08/23 14:20 O2 Flow Rate 4 08/08/23 14:20 08/07/23 08/08/23 08/08/23 22:59 06:59 14:59 Intake Total 1250 / 2221.667 50 / 2271.667 1410 / 1410 Output Total 400 / 1000 400 / 1400 600 / 600 Balance 850 / 1221.667 -350 / 871.667 810 / 810 Weight last 48 hrs Weight 174 lb 9 oz Weight 174 lb 9 oz Weight 174 lb 9 oz Physical Exam 2 Narrative: NAD Const: COMMON NORMALS: patient oriented x3 and alert GENERAL APPEARANCE: c ooperative ORIENTATION/CONSCIOUSNESS: Yes awake HENMT: COMMON NORMALS: oropharynx normal Neck/C-Spine: COMMON NORMALS: no JVD Resp: AUSCULTATION: diminished lung sounds Cardio: COMMON NORMALS: no JVD, regular rhythm, S1 normal heart sound present, S2 normal heart sound present and No murmurs present (Cardio) RHYTHM: regular rhythm HEART SOUNDS: S1 normal heart sound present and S2 normal heart sound present GI: COMMON NORMALS: Normal to inspection, nondistended, normoactive bowel sounds present, Soft to palpation and non-tender PALPATION: Yes Soft to palpation Extremity: COMMON NORMALS: no joint enlargement and no pedal edema Neuro: COMMON NORMALS: patient oriented x3 and moves all extremities S ENSORIUM/ORIENTATION: Yes alert Skin: COMMON NORMALS: no rashes or lesions noted GENERAL SKIN EXAM: no rashes or lesions noted Data 08/06/23 03:20 08/06/23 08:37 A&P Assessment and plan (1) Hypotension: Hypotensive on presentation, blood pressure 73/53 with malaise, fatigue this morning, has not been feeling well for about 3 days with progressive feeling of the same, also some dry cough, yesterday had some nausea. Reviewed vitals, CBC, CMP, UA and respiratory viral panels are pending. Reviewed chest x-ray, reviewed EKG, on my interpretation sinus tachycardia, no evidence of arrhythmia. Reviewed ER note, discussed with ER provider. Noted SIRS, with sinus tachycardia 114, respiratory rate with tachypnea, 25. Concern for possible sepsis. Blood culture collected. Lactic acid reviewed, 1.6. Received empiric antibiotic coverage with Zosyn. Source of sepsis unclear, initially consideration of possible pneumonia with respiratory symptoms, tachypnea, tachycardia, however, with recent dental extractions, subjective purulent secretion from extraction sockets, additional assessment underway to exclude dental abscess as a potential source. cx negative (2) S/P tooth extraction: Multiple extractions recently, had 2 courses of Augmentin. Still feels some discharge from sockets which to him feels like purulence. I do not appreciate purulence's exam, no bleeding, there is mild swelling around the extraction sockets which may not be unexpected. Additional assessment underway for any possible dental abscess as above. Follow-up blood culture. (3) Chronic obstructive pulmonary disease: Moderate exacerbation with cough, some sputum production, although he has not coughed it up to look at it. Currently requiring 6 L of oxygen. Normally on 5 L. Diminished air entry on exam. Will add breathing treatments, scheduled and as needed DuoNebs. Hold off on systemic steroids for now, rule out bacteremia, sepsis, consider if addition will be needed. For now we will add some lower dose inhaled steroid. (4) Flu: on tamiflu continue empiric abx, O2, inhalers ok to bring home inhalers which he has he denies using home albuterol in hospital (5) Weakness: Checked TSH, CPK, phosphorus. Physical therapy consultation done may need continued rehab Plan Interstitial lung disease/fibrosis CHF, currently not in exacerbation HTN, hypotensive, hold antihypertensives for now. Reassess blood pressures. Sleep apnea Attestations 2 Medical Necessity Statement*: Gamal Forrester requires ongoing inpatient care for abx, therapy Coding Level of Care Code 97837 Diagnoses Hypotension I95.9 S/P tooth extraction K08.409 Chronic obstructive pulmonary disease J44.9 Flu J11.1 Weakness R53.1
[2023-08-08] MEDS: diphenhydrAMINE 50 mg/mL SDV 1mL IVP (15:11)
[2023-08-09] VITALS (7 sets, daily range): BP systolic 125–162; BP diastolic 65–84; PULSE 74–93; RESP 16–20; TEMP 36.5–36.6; O2SAT 95–99
[2023-08-09] MEDS: ipratropium-albuterol 3 mL Neb INHALATION ×3 (03:10→15:17)
[2023-08-09] MEDS: piperacillin-tazobactam 3.375 GM in sodium chloride 0.9% (plus) 50 ML IV ×2 (05:12→14:25)
[2023-08-09] MEDS: HYDROcodone-acetaminophen 10-325 mg Tablet 1 TAB PO ×3 (05:13→16:52)
[2023-08-09 05:32] LABS: Basophils % 0.5 %; Eosinophils # 0.1 10^3/uL (0.0-0.8); Eosinophils % 3.8 %; Hematocrit 38.2 % (37-53); Lymphocytes # 0.8 10^3/uL (0.8-4.8); Lymphocytes % 21.9 %; Mean Corpuscular Hemoglobin 32.1 pg (27-33); Mean Corpuscular Volume 97.4 fl (82-101); Mean Platelet Volume 9.1 fL (7.4-10.4); Monocytes # 0.3 10^3/uL (0.2-0.9); Monocytes % 8.9 %; Neutrophils # 2.39 10^3/uL (1.8-7.7); Neutrophils % 64.6 %; Nucleated Red Blood Cells % 0 %; Platelet Count 178 10^3/cmm (157-399); Red Blood Count 3.92 10^6/uL (3.85-5.65)
[2023-08-09 06:03] LABS: Slide Review Slide Review Perform
[2023-08-09] MEDS: budesonide 0.5 mg/2 mL Neb 0.25 MG INHALATION (08:47)
[2023-08-09] MEDS: amlodipine 10 mg Tablet PO (09:45)
[2023-08-09] MEDS: oseltamivir phosphate 75 mg Capsule PO (09:45)
[2023-08-09] MEDS: oxybutynin 5 mg Tablet PO (09:45)
[2023-08-09] MEDS: sodium chloride 0.9% 1,000 ML 100 ML IV (09:51)
--- NOTE | 2023-08-09 13:50 | P.PN_ITS ---
Subjective 2 Subjective: Currently on 4 L. Afebrile. Wanted to review medications earlier today Vitals/I&O/Wt Last Vital Signs Temp 97.8 F 08/09/23 07:46 Pulse 89 08/09/23 08:47 Resp 20 H 08/09/23 08:47 BP 162/84 08/09/23 07:46 Pulse Ox 97 08/09/23 08:47 O2 Del Method Nasal Cannula 08/09/23 08:47 O2 Flow Rate 4 08/09/23 08:47 08/08/23 08/09/23 08/09/23 22:59 06:59 14:59 Intake Total 1170 / 2580 170 / 2750 1290 / 1290 Output Total 200 / 800 250 / 1050 200 / 200 Balance 970 / 1780 -80 / 1700 1090 / 1090 Weight last 48 hrs Weight 181 lb 14.102 oz Weight 181 lb 14.102 oz Weight 174 lb 9 oz Physical Exam 2 Narrative: NAD Const: COMMON NORMALS: patient oriented x3 and alert GENERAL APPEARANCE: c ooperative ORIENTATION/CONSCIOUSNESS: Yes awake HENMT: COMMON NORMALS: oropharynx normal Neck/C-Spine: COMMON NORMALS: no JVD Resp: AUSCULTATION: diminished lung sounds Cardio: COMMON NORMALS: no JVD, regular rhythm, S1 normal heart sound present, S2 normal heart sound present and No murmurs present (Cardio) RHYTHM: regular rhythm HEART SOUNDS: S1 normal heart sound present and S2 normal heart sound present GI: COMMON NORMALS: Normal to inspection, nondistended, normoactive bowel sounds present, Soft to palpation and non-tender PALPATION: Yes Soft to palpation Extremity: COMMON NORMALS: no joint enlargement and no pedal edema Neuro: COMMON NORMALS: patient oriented x3 and moves all extremities S ENSORIUM/ORIENTATION: Yes alert Skin: COMMON NORMALS: no rashes or lesions noted GENERAL SKIN EXAM: no rashes or lesions noted Data 08/09/23 04:34 08/06/23 08:37 A&P Assessment and plan (1) Chronic obstructive pulmonary disease: Moderate exacerbation with cough, some sputum production, although he has not coughed it up to look at it. Currently requiring 6 L of oxygen. Normally on 5 L. currently at baseline . continue scheduled and prn nebs. (2) S/P tooth extraction: Multiple extractions recently, had 2 courses of Augmentin. no signs of active infection (3) Flu: on tamiflu continue empiric abx, O2, inhalers ok to bring home inhalers which he has he denies using home albuterol in hospital (4) Weakness: Checked TSH, CPK, phosphorus. Physical therapy consultation done may need continued rehab Plan Interstitial lung disease/fibrosis CHF, currently not in exacerbation HTN, hypotensive, hold antihypertensives for now. Reassess blood pressures. Sleep apnea Seizure disorder Attestations 2 Medical Necessity Statement*: Gamal Forrester requires ongoing inpatient care for oxygen abx, anticipate dc soon Coding Level of Care Code 26472 Diagnoses Chronic obstructive pulmonary disease J44.9 S/P tooth extraction K08.409 Flu J11.1 Weakness R53.1
[2023-08-09] MEDS: enoxaparin 40 mg/0.4 mL Syringe SUBCUT (14:25)
--- NOTE | 2023-08-09 15:45 | PM.DCS ---
Discharge Providers Date of Admission: 08/05/23 13:58 Date of Discharge: August 09, 2023 Attending Provider at Admission: Omid Hou Attending Provider at Discharge: Mabel Reagan MD Primary Care Provider: Willow Plasencia MD Diagnoses at Discharge Discharge Diagnosis (1) Chronic obstructive pulmonary disease: Status: Acute (2) S/P tooth extraction: Status: Acute (3) Flu: Status: Acute (4) Weakness: Status: Acute Reason for Visit Reason for Visit: SOB Hospital Course Hospital Course 78-year-old male with history of COPD normally on 5 L presented with increased shortness of breath. He also has history of interstitial lung disease, pulmonary fibrosis, hypertension, sleep apnea. It was noted that he was on antibiotics for a recent dental extraction. Patient was also hypotensive and tachypnea tachycardic on arrival. The patient was treated with antibiotics, nebulizers. Found to be flu positive. Placed on Tamiflu. Workup for weakness was also done. Physical therapy was also consulted. At time of discharge he was at his baseline O2. Discharge medications were given. He was discharged in stable condition. He reports that he did not want to be placed home health was requested Physical Exam Narrative: NAD Const: COMMON NORMALS: patient oriented x3 and alert GENERAL APPEARANCE: cooperative ORIENTATION/CONSCIOUSNESS: Yes awake HENMT: COMMON NORMALS: oropharynx normal Neck/C-Spine: COMMON NORMALS: no JVD Resp: AUSCULTATION: diminished lung sounds Cardio: COMMON NORMALS: no JVD, regular rhythm, S1 normal heart sound present, S2 normal heart sound present and No murmurs present (Cardio) RHYTHM: regular rhythm HEART SOUNDS: S1 normal heart sound present and S2 normal heart sound present GI: COMMON NORMALS: Normal to inspection, nondistended, normoactive bowel sounds present, Soft to palpation and non-tender PALPATION: Yes Soft to palpation Extremity: COMMON NORMALS: no joint enlargement and no pedal edema Neuro: COMMON NORMALS: patient oriented x3 and moves all extremities SENSORIUM/ORIENTATION: Yes alert Skin: COMMON NORMALS: no rashes or lesions noted GENERAL SKIN EXAM: no rashes or lesions noted Discharge Data Studies Completed and Pending Completed Studies During Hospitalization Category Date Time Status CT angio chest PE protcl [id number] Stat Cat Scan 08/05/23 13:[address] facial bones w con [id number] Stat Cat Scan 08/05/23 13:03 Completed XR chest 1V portable [id number] Stat Exams 08/05/23 13:01 Completed Radiology Impressions Chest X-Ray 08/05/23 13:01 IMPRESSION: No focal consolidation. Chest CTA 08/05/23 13:03 IMPRESSION: 1. No acute findings in the chest. 2. Chronic findings consistent with COPD. Face CT 08/05/23 13:03 IMPRESSION: 1. No drainable abscess or obvious soft tissue phlegmon identified. 2. Dental findings as reported above. 3. Severe short-segment stenosis of proximal left ICA. Laboratory Results WBC 3.70 10^3/uL (3.29-11.43) 08/09/23 04:34 RBC 3.92 10^6/uL (3.85-5.65) 08/09/23 04:34 Hgb 12.60 g/dL (11.27-16.99) 08/09/23 04:34 Hct 38.2 % (37-53) 08/09/23 04:34 MCV 97.4 fl (82-101) 08/09/23 04:34 MCH 32.1 pg (27-33) 08/09/23 04:34 MCHC 33.0 g/dL (30-55) 08/09/23 04:34 RDW 12.0 % (12.1-15.1) L 08/09/23 04:34 Plt Count 178 10^3/cmm (157-399) 08/09/23 04:34 MPV 9.1 fL (7.4-10.4) 08/09/23 04:34 Neut % (Auto) 64.6 % 08/09/23 04:34 Lymph % (Auto) 21.9 % 08/09/23 04:34 [place] % (Auto) 8.9 % 08/09/23 04:34 Eos % (Auto) 3.8 % 08/09/23 04:34 Baso % (Auto) 0.5 % 08/09/23 04:34 Neut # (Auto) 2.39 10^3/uL (1.8-7.7) 08/09/23 04:34 Lymph # (Auto) 0.8 10^3/uL (0.8-4.8) 08/09/23 04:34 [place] # (Auto) 0.3 10^3/uL (0.2-0.9) 08/09/23 04:34 Eos # (Auto) 0.1 10^3/uL (0.0-0.8) 08/09/23 04:34 Baso # (Auto) 0.0 10^3/uL (0.0-0.1) 08/09/23 04:34 Nucleated RBC % (auto) 0 % 08/09/23 04:34 Nucleated RBCs # 0.0 /100WBC 08/09/23 04:34 Sodium 139 mmol/L (136-145) 08/06/23 08:37 Potassium 3.9 mmol/L (3.5-5.1) 08/06/23 08:37 Chloride 106 mmol/L (98-107) 08/06/23 08:37 Carbon Dioxide 23 mmol/L (22-29) 08/06/23 08:37 Anion Gap 13.9 (5-19) 08/06/23 08:37 BUN 10 mg/dL (8-23) 08/06/23 08:37 Creatinine 0.9 mg/dL (0.7-1.2) 08/06/23 08:37 GFR Calculation Not Reportable 08/06/23 08:37 Glucose 133 mg/dL (65-115) H 08/06/23 08:37 Calculated Osmolality 289 mOsm/kg (285-295) 08/06/23 08:37 Lactic Acid 1.6 mmol/L (0.5-2.2) 08/05/23 11:30 Calcium 8.2 mg/dL (8.5-10.5) L 08/06/23 08:37 Phosphorus 2.8 mg/dL (2.5-4.5) 08/08/23 06:10 Total Bilirubin 0.2 mg/dL (0.15-1.2) 08/06/23 08:37 AST 23 U/L (0-40) 08/06/23 08:37 ALT 18 U/L (0-41) 08/06/23 08:37 Alkaline Phosphatase 80 U/L (40-130) 08/06/23 08:37 Creatine Kinase 81 U/L (39-308) 08/08/23 06:10 Troponin T Baseline 24 ng/L (0-15) H 08/05/23 11:30 Troponin T 120 Minute 25.86 ng/L (0-15) H 08/05/23 13:49 Delta Troponin T 1.86 ABS# (0-10) 08/05/23 13:49 Troponin T Hi Sens 6Hr 21.01 ng/L (0-15) H 08/05/23 17:34 Troponin T Hi Sens 6Hr Delta -2.99 ng/L (0-12) L 08/05/23 17:34 NT-Pro-B Natriuret Pep 188 pg/mL (0-450) 08/05/23 11:30 Total Protein 7.1 g/dL (6.6-8.7) 08/06/23 08:37 Albumin 3.5 g/dL (3.5-5.2) 08/06/23 08:37 Globulin 3.6 g/dL (1.3-4.6) 08/06/23 08:37 TSH 1.40 uIU/mL (0.27-4.20) 08/08/23 06:10 Urine Color Yellow (Yellow) 08/05/23 13:43 Urine Appearance Sl hazy (CLEAR) A 08/05/23 13:43 Urine pH 5 (5-7) 08/05/23 13:43 Ur Specific [place] 1.020 (1.005-1.030) 08/05/23 13:43 Urine Protein Trace (Negative) 08/05/23 13:43 Urine Glucose (UA) Norm (Normal) 08/05/23 13:43 Urine Ketones 2+ (Negative) H 08/05/23 13:43 Urine Blood Neg (Negative) 08/05/23 13:43 Urine Nitrate Negative (Negative) 08/05/23 13:43 Urine Bilirubin 1+ (Negative) H 08/05/23 13:43 Urine Urobilinogen 1 mg/dL (Negative) H 08/05/23 13:43 Ur Leukocyte Esterase Negative (Negative) 08/05/23 13:43 Urine RBC None /hpf (0-2) 08/05/23 13:43 Urine WBC 0-4 /hpf (0-5) H 08/05/23 13:43 Ur Squamous Epith Cells None /hpf (0-5) 08/05/23 13:43 Amorphous Sediment Not Reportable 08/05/23 13:43 Urine Bacteria 1+ /hpf (NONE) H 08/05/23 13:43 Urine Mucus 2+ /hpf 08/05/23 13:43 Adenovirus (PCR) Not detected (NOT DETECT) 08/05/23 11:41 C. pneumoniae DNA (PCR) Not detected (NOT DETECT) 08/05/23 11:41 Coronavirus 229E (PCR) Not detected (NOT DETECT) 08/05/23 11:41 Human Metapneumovir PCR Not detected (NOT DETECT) 08/05/23 11:41 Influenza A (H1) PCR Not detected (NOT DETECT) 08/05/23 11:41 Influ A (H1/09) PCR Detected (NOT DETECT) A 08/05/23 11:41 Influenza A (H3) PCR Not detected (NOT DETECT) 08/05/23 11:41 Influenza Type A (PCR) Detected (NOT DETECT) A 08/05/23 11:41 Influenza Type B (PCR) Not detected (NOT DETECT) 08/05/23 11:41 M. pneumoniae (PCR) Not detected (NOT DETECT) 08/05/23 11:41 Parainfluenza 1 (PCR) Not detected (NOT DETECT) 08/05/23 11:41 Parainfluenza 2 (PCR) Not detected (NOT DETECT) 08/05/23 11:41 Parainfluenza 3 (PCR) Not detected (NOT DETECT) 08/05/23 11:41 Parainfluenza 4 (PCR) Not detected (NOT DETECT) 08/05/23 11:41 RSV Type A (PCR) Not detected (NOT DETECT) 08/05/23 11:41 RSV Type B (PCR) Not detected (NOT DETECT) 08/05/23 11:41 Entero/Rhino (PCR) Not detected (NOT DETECT) 08/05/23 11:41 SARS-CoV-2 (PCR) Not detected (NOT DETECT) 08/05/23 11:41 Vitals Last Vital Signs Temp 97.8 F 08/09/23 07:46 Pulse 90 08/09/23 15:26 Resp 20 H 08/09/23 15:18 BP 162/84 08/09/23 07:46 Pulse Ox 95 08/09/23 15:18 O2 Del Method Nasal Cannula 08/09/23 15:18 O2 Flow Rate 4 08/09/23 15:18 Discharge Plan Discharge Patient Disposition: Home Condition: Stable Prescriptions: New oseltamivir 75 mg Capsule 75 mg PO BID@0900,2100 Qty: 2 0RF amoxicillin-pot clavulanate [Augmentin] 500-125 mg tablet 1 tab PO BID Qty: 4 0RF Continued omega 4-iag-abq-fish oil [Fish Oil] 1,000 mg (120 mg-180 mg) capsule 1 cap PO DAILY carbamazepine 200 mg tablet 600 mg PO BID vitamin E (dl, acetate) 400 unit capsule 45 mg PO DAILY hydrocodone-acetaminophen 10-325 mg tablet 1 - 2 tab PO .Q4-6H PRN (Reason: Pain) oxybutynin chloride 5 mg tablet 5 mg PO DAILY cetirizine 10 mg tablet 10 mg PO DAILY PRN (Reason: Allergy Symptoms) atorvastatin 40 mg tablet 40 mg PO DAILY lisinopril 40 mg tablet 20 mg PO DAILY albuterol sulfate 2.5 mg /3 mL (0.083 %) solution for nebulization 2.5 mg inhalation Q4H PRN (Reason: Shortness Of Breath) multivitamin Tablet 1 tab PO DAILY ipratropium-albuterol 0.5 mg-3 mg(2.5 mg base)/3 mL solution for nebulization 3 ml inhalation Q6H PRN (Reason: Shortness Of Breath Or Wheezing) Breztri Aerosphere 160-9-4.8 mcg/actuation HFA aerosol inhaler 2 inh inhalation BID 30 Days Qty: 10.7 6RF albuterol sulfate 90 mcg/actuation HFA aerosol inhaler 2 inh inhalation Q8H Qty: 8.5 3RF tamsulosin 0.4 mg Capsule 0.4 mg PO QPM Benadryl 25 mg Capsule 25 mg PO TID PRN (Reason: Allergy Symptoms) artificial tears(hypromellose) 0.3 % Drops 1 drp OPHTHALMIC (EYE) Q4H PRN (Reason: Dry Eye(S)) Vitamin D3 25 mcg (1,000 unit) Capsule 25 mcg PO DAILY Discontinued amoxicillin 500 mg capsule 500 mg PO TID Discharge Orders: Discharge Order (Routine); Ordered 08/09/23 Ordered By: Mabel Reagan Referrals: Willow Plasencia MD [Primary Care Provider] - Discharge Diet: Usual diet Discharge Activity: Resume usual activity Patient Instructions: Opioid Safety Discharge Attestations Time Spent in Discharge Care*: less than 30 min Quality Metrics Clinical Quality Measures [ No reported AMI, CVA or VTE this stay] Coding Level of Care Code Acute Code for Chg Fwd Diagnoses Chronic obstructive pulmonary disease J44.9 S/P tooth extraction K08.409 Flu J11.1 Weakness R53.1
== END 2023-08-09 17:45 | disposition home or self-care (01) | DRG 191 ==
LOC: ER 11:45 → ICU 15:35 → MEDSURG 08-07 11:23
PROVIDERS: Admitting Provider Internal Medicine; Emergency Provider Family Medicine; PCP Family Medicine; Visit Provider Internal Medicine
DX: J44.1 Chronic obstructive pulmonary disease with (acute) exacerbation (principal); J96.11 Chronic respiratory failure with hypoxia; R65.10 Systemic inflammatory response syndrome (SIRS) of non-infectious origin without acute organ dysfunction; Z99.81 Dependence on supplemental oxygen; Z87.891 Personal history of nicotine dependence; I11.0 Hypertensive heart disease with heart failure; I50.9 Heart failure, unspecified; G47.33 Obstructive sleep apnea (adult) (pediatric); F31.9 Bipolar disorder, unspecified; E78.5 Hyperlipidemia, unspecified; G40.909 Epilepsy, unspecified, not intractable, without status epilepticus; G89.29 Other chronic pain; M54.9 Dorsalgia, unspecified; M54.2 Cervicalgia; J84.10 Pulmonary fibrosis, unspecified; J10.1 Influenza due to other identified influenza virus with other respiratory manifestations
CPT/HCPCS: 36415; 70487; 71045; 71275; 80053; 81001; 82550; 83605; 83880; 84100; 84443; 84484; 85025; 87486; 87581; 87633; 93005; 94640; 96365; 96372; 96374; 96376; 97110; 97116; 97162; 97530; 99285; J1100; J1200; J1650; J2543; J7030; J7613; J7626; Q9967

== ENCOUNTER 2023-10-18 12:04 | Observation (INO) | payer MEDICARE, SELFPAY ==
--- NOTE | 2023-10-18 12:07 | XR_ITS ---
WS: [id number] Portable AP upright chest, 10/18/2023 Clinical Data: palpitation Comparison: Portable chest, 08/05/2023 Findings: No nodules, masses or effusions are seen. The heart is normal. The pulmonary vascularity is not increased. No pneumonia or pneumothorax is seen. The diaphragms are flattened. The aortic arch a nd descending thoracic aorta shows tortuosity. XR/XR chest 1V portable [id number] Impression: Hyperinflation and atherosclerosis.
[2023-10-18 12:10] VITALS: BP 93/61; PULSE 112; RESP 16; TEMP 36.6; O2SAT 96
--- NOTE | 2023-10-18 12:22 | CT_ITS ---
WS: [id number] CT HEAD TECHNIQUE: Noncontrast CT of the head obtained from the skullbase to the vertex. CLINICAL INFORMATION: ams COMPARISON: None. DLP: 1120.[address] scans at [facility] use at least one of these dose optimization techniques: automated e xposure control; mA and/or kV adjustment per patient size (includes targeted exams where dose is matc hed to clinical indication); or iterative reconstruction. FINDINGS: Wedge-shaped area of low-attenuation LEFT frontal parietal and temporal junction measuring 3.2 x 2.9 cm extending to the cortex likely representing subacute infarct. This may resent a watershed infarct. No other acute suspicious foci. Moderate small vessel changes. Moderate parenchymal volume loss worse in the frontal lobes. Vascular calcification. Tiny chronic lacunar infarcts RIGHT caudate and basal ganglia. Paranasal sinuses are w ell aerated. Mastoid air cells are well aerated. Normal posterior nasopharynx. CT/CT head wo con* [id number] IMPRESSION: 1. Wedge-shaped suspected subacute infarct in the LEFT frontal parietal tempor al junction described above. This may represent a watershed infarct. This could be further evaluated with MRI if indicated. 2. No significant mass effect. 3. No intracranial hemorrhage. 4. Moderate small vessel changes with moderate parenchymal volume loss. 5. Tiny chronic lacunar infarcts RIGHT caudate and basal ganglia. 6. Vascular calcification Message LEFT for Romain Yan MD at 10/18/2023 12:59 PM.
--- NOTE | 2023-10-18 12:28 | ED_ITS ---
HPI - Altered Mental Status 2 General: Chief Complaint: Altered Mental Status Stated Complaint: [facility] and blood pressure low Time Seen by Provider: 10/18/23 12:16 Source: patient and family Mode of arrival: ambulatory Limitations: no limitations History of Present Illness: 78-year-old male history of COPD wears 4 L oxygen at baseline he is here with his son son states that last week he had some slight confusion states he is able to answer questions appropriately but is been confused try to work with a remote and his phone states he is concerned he may have a UTI patient here is no other complaints besides confusion denies headache chest pain denies any shortness of breath he had no cough Review of Systems 2 Const: Denies: fever(s), chills, body aches or change in appetite ENMT: Denies: throat pain or dental pain Card: Denies: chest pain Resp: Denies: dyspnea GI: Denies: abdominal pain, nausea, vomiting or diarrhea : Denies: dysuria Musc: Denies: neck pain or back pain Skin/Breast: Denies: rash Neuro: Reports: confusion; Denies: headache(s) PFSH ED 2 PFSH: Medical History Chronic obstructive pulmonary disease Dependence on supplemental oxygen Erectile dysfunction Bipolar 1 disorder Hyperlipidemia ARPIT (obstructive sleep apnea) HTN (hypertension) Surgical History (Updated 08/10/23 @ 00:02 by DAVID Urbano) Hx of appendectomy Family History Mother , AT AGE 64 Cancer Diabetes Grandfather Diabetes Father , AT AGE 94 Lung disease Social History Smoking and tobacco/nicotine status: former use of tobacco/nicotine (2002) Quit status (tobacco/nicotine): has quit using Year quit tobacco: 2002 Former quit date comment: Hx of 2 PPD x 50 Years Alcohol intake: former Substance/Drug Use: never Lives independently: Yes Marital status: / service: Yes Current occupational status: retired Do you think of yourself as: Straight/Heterosexual Physical Exam 2 Const: COMMON NORMALS: no acute distress, patient oriented x3 and healthy appearing HENMT: COMMON NORMALS: normocephalic and atraumatic HEAD & SCALP: n ormocephalic and atraumatic Eye: COMMON NORMALS: Equal, round and reactive pupils present and EOMs intact bilaterally PUPIL: Yes Equal, round and reactive pupils present Neck/C-Spine: COMMON NORMALS: full ROM and supple Chest: COMMONS NORMALS: normal inspection of the chest and normal palpation of entire chest wall Resp: COMMON NORMALS: normal respiratory effort, No retractions, No use of accessory muscles and clear to auscultation bilaterally AUSCULTATION: clear to auscultation bilaterally Cardio: COMMON NORMALS: regular rate, regular rhythm and No murmurs present (Cardio) RATE: regular rate RHYTHM: regular rhythm GI: COMMON NORMALS: Normal to inspection, nondistended, normoactive bowel sounds present, Soft to palpation, non-tender and no masses PALPATION: Yes Soft to palpation Extremity: COMMON NORMALS: normal to inspection and full ROM Neuro: COMMON NORMALS: patient oriented x3, moves all extremities and no focal motor deficits Psych: COMMON NORMALS: mental status grossly normal, Normal thought process present and cooperative THOUGHT PROCESS: Normal thought process present Skin: COMMON NORMALS: no rashes or lesions noted and no wounds GENERAL SKIN EXAM: no rashes or lesions noted Course 2 Vital Signs: Vital signs: Vital Signs Temperature 97.9 F 10/18/23 12:10 Pulse Rate 112 H 10/18/23 12:10 Respiratory Rate 16 10/18/23 12:10 Blood Pressure 93/61 10/18/23 12:10 Pulse Oximetry 96 10/18/23 12:10 Oxygen Delivery Me thod Nasal Cannula 10/18/23 12:10 Oxygen Flow Rate 4 10/18/23 12:10 MDM - Altered Mental Status Medical Decision Making Patient presents here with some confusion he is found to have a likely stroke on his head CT symptoms been going on for weeks he is not a lytic candidate due to time did speak to the hospitalist will admit at this time Medical Records I reviewed the patient's medical records. Lab Data I reviewed the patient's lab results. 10/18/23 12:44 10/18/23 12:44 Radiology Impressions Chest X-Ray 10/18/23 12:07 Impression: Hyperinflation and atherosclerosis. Head CT 10/18/23 12:22 IMPRESSION: 1. Wedge-shaped suspected subacute infarct in the LEFT frontal parietal temporal junction described above. This may represent a watershed infarct. This could be further evaluated with MRI if indicated. 2. No significant mass effect. 3. No intracranial hemorrhage. 4. Moderate small vessel changes with moderate parenchymal volume loss. 5. Tiny chronic lacunar infarcts RIGHT caudate and basal ganglia. 6. Vascular calcification Message LEFT for Romain Yan MD at 10/18/2023 12:59 PM. Laboratory Results WBC 10.64 10^3/uL (3.29-11.43) 10/18/23 12:44 RBC 4.46 10^6/uL (3.85-5.65) 10/18/23 12:44 Hgb 14.10 g/dL (11.27-16.99) 10/18/23 12:44 Hct 42.8 % (37-53) 10/18/23 12:44 MCV 96.0 fl (82-101) 10/18/23 12:44 MCH 31.6 pg (27-33) 10/18/23 12:44 MCHC 32.9 g/dL (30-55) 10/18/23 12:44 RDW 12.3 % (12.1-15.1) 10/18/23 12:44 Plt Count 216 10^3/cmm (157-399) 10/18/23 12:44 MPV 8.8 fL (7.4-10.4) 10/18/23 12:44 Neut % (Auto) 81.0 % 10/18/23 12:44 Lymph % (Auto) 10.2 % 10/18/23 12:44 [place] % (Auto) 6.6 % 10/18/23 12:44 Eos % (Auto) 1.5 % 10/18/23 12:44 Baso % (Auto) 0.3 % 10/18/23 12:44 Neut # (Auto) 8.63 10^3/uL (1.8-7.7) H 10/18/23 12:44 Lymph # (Auto) 1.1 10^3/uL (0.8-4.8) 10/18/23 12:44 [place] # (Auto) 0.7 10^3/uL (0.2-0.9) 10/18/23 12:44 Eos # (Auto) 0.2 10^3/uL (0.0-0.8) 10/18/23 12:44 Baso # (Auto) 0.0 10^3/uL (0.0-0.1) 10/18/23 12:44 Nucleated RBC % (auto) 0 % 10/18/23 12:44 Nucleated RBCs # 0.0 /100WBC 10/18/23 12:44 Specimen Type Arterial 10/18/23 12:22 Sample Site Brachial, left 10/18/23 12:22 ABG pH 7.37 (7.35-7.45) 10/18/23 12:22 ABG pCO2 43.7 mmHg (35-45) 10/18/23 12:22 ABG pO2 100.0 mmHg (80.0-100.0) 10/18/23 12:22 ABG PO2/FiO2 Ratio 277 10/18/23 12:22 ABG HCO3 25.3 mmol/L (22-26) 10/18/23 12:22 ABG O2 Saturation 98.1 10/18/23 12:22 ABG Base Excess -0.3 mmol/L (-2.0-2.0) 10/18/23 12:22 Jaxson Test N/a 10/18/23 12:22 A-a O2 Gradient 13.1 mmHg (5-10) H 10/18/23 12:22 Hematocrit 45.0 % (42-52) 10/18/23 12:22 Hgb O2 Saturation 96.5 % (95-100) 10/18/23 12:22 Carboxyhemoglobin 0.5 %THgb (0.4-20.1) 10/18/23 12:22 Methemoglobin 1.1 % (0.4-1.5) 10/18/23 12:22 Total Hemoglobin 14.7 g/dL (14-18) 10/18/23 12:22 Sodium 141.0 mmol/L (131-143) 10/18/23 12:22 Potassium 3.9 mmol/L (3.5-5.0) 10/18/23 12:22 Glucose 145.0 mg/dL (70-115) H 10/18/23 12:22 Ionized Calcium 1.2 mmol/L (1.1-1.4) 10/18/23 12:22 O2 Delivery Device Nc 10/18/23 12:22 O2 Liters/Min 4.0 % 10/18/23 12:22 FiO2 36.0 % 10/18/23 12:22 Coremaker Experimental ID Amh 10/18/23 12:22 Sodium 142 mmol/L (136-145) 10/18/23 12:44 Potassium 4.8 mmol/L (3.5-5.1) 10/18/23 12:44 Chloride 108 mmol/L (98-107) H 10/18/23 12:44 Carbon Dioxide 23 mmol/L (22-29) 10/18/23 12:44 Anion Gap 15.8 (5-19) 10/18/23 12:44 BUN 14 mg/dL (8-23) 10/18/23 12:44 Creatinine 1.1 mg/dL (0.7-1.2) 10/18/23 12:44 GFR Calculation Not Reportable 10/18/23 12:44 Glucose 139 mg/dL (65-115) H 10/18/23 12:44 Calculated Osmolality 297 mOsm/kg (285-295) H 10/18/23 12:44 Lactic Acid 1.0 mmol/L (0.5-2.2) 10/18/23 12:44 Calcium 8.5 mg/dL (8.5-10.5) 10/18/23 12:44 Total Bilirubin 0.3 mg/dL (0.15-1.2) 10/18/23 12:44 AST 15 U/L (0-40) 10/18/23 12:44 ALT 14 U/L (0-41) 10/18/23 12:44 Alkaline Phosphatase 83 U/L (40-130) 10/18/23 12:44 Ammonia 32 umol/L (16-60) 10/18/23 12:44 NT-Pro-B Natriuret Pep < 36 pg/mL (0-450) 10/18/23 12:44 Total Protein 7.4 g/dL (6.6-8.7) 10/18/23 12:44 Albumin 4.1 g/dL (3.5-5.2) 10/18/23 12:44 Globulin 3.3 g/dL (1.3-4.6) 10/18/23 12:44 All radiology interpretation(s) finalized by discharge EKG Data EKG 1: I personally reviewed and interpreted this EKG as follows: EKG interpretation date: 10/18/23 EKG interpretation time: 12:57 Interpretation: nsr hr [address] or t wave ab normalities qrs 100 qtc 387 Discharge Plan Discharge Patient Disposition: Admitted As Inpatient Clinical Impression: CVA (cerebrovascular accident) Condition: Stable Prescriptions: No Action omega 3-fuh-jsz-fish oil [Fish Oil] 1,000 mg (120 mg-180 mg) capsule 1 cap PO DAILY carbamazepine 200 mg tablet 600 mg PO BID vitamin E (dl, acetate) 400 unit capsule 45 mg PO DAILY hydrocodone-acetaminophen 10-325 mg tablet 1 - 2 tab PO .Q4-6H PRN (Reason: Pain) oxybutynin chloride 5 mg tablet 5 mg PO DAILY cetirizine 10 mg tablet 10 mg PO DAILY PRN (Reason: Allergy Symptoms) atorvastatin 40 mg tablet 40 mg PO DAILY lisinopril 40 mg tablet 20 mg PO DAILY albuterol sulfate 2.5 mg /3 mL (0.083 %) solution for nebulization 2.5 mg inhalation Q4H PRN (Reason: Shortness Of Breath) multivitamin Tablet 1 tab PO DAILY ipratropium-albuterol 0.5 mg-3 mg(2.5 mg base)/3 mL solution for nebulization 3 ml inhalation Q6H PRN (Reason: Shortness Of Breath Or Wheezing) Breztri Aerosphere 160-9-4.8 mcg/actuation HFA aerosol inhaler 2 inh inhalation BID 30 Days Qty: 10.7 6RF albuterol sulfate 90 mcg/actuation HFA aerosol inhaler 2 inh inhalation Q8H Qty: 8.5 3RF tamsulosin 0.4 mg Capsule 0.4 mg PO QPM Benadryl 25 mg Capsule 25 mg PO TID PRN (Reason: Allergy Symptoms) artificial tears(hypromellose) 0.3 % Drops 1 drp OPHTHALMIC (EYE) Q4H PRN (Reason: Dry Eye(S)) Vitamin D3 25 mcg (1,000 unit) Capsule 25 mcg PO DAILY Referrals: Willow Plasencia MD [Primary Care Provider] - Patient Instructions: Altered Mental Status (ED) Coding Level of Care Code ED Physical Fitness Teacher for Chencho Josue
[2023-10-18 12:33] LABS: ABG PCO2 43.7 mmHg (35-45); ABG PH Result 7.37 (7.35-7.45); Alveolar-Arterial Oxygen Gradi 13.1 mmHg (5-10); Base Excess ABG -0.3 mmol/L (-2.0-2.0); Blood Gas Operator Identificat AMH; Blood Gas Sample Site Brachial, left; Blood Gas Sample Type Arterial; Carboxyhemoglobin 0.5 %THgb (0.4-20.1); HCO3 ABG 25.3 mmol/L (22-26); HGB O2 Sat 96.5 % (95-100); Ionized Calcium Level - ABG 1.2 mmol/L (1.1-1.4); Methemoglobin 1.1 % (0.4-1.5); Oxygen Device NC; Oxygen Saturation ABG 98.1; PO2 FiO2 Ratio Arterial Blood 277; Potassium Level - ABG 3.9 mmol/L (3.5-5.0); Total Hemoglobin 14.7 g/dL (14-18)
--- NOTE | 2023-10-18 12:57 | ECG_ITS ---
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 Measurements Intervals [place] Rate: 85 P: 70 TN: 160 QRS: 69 QRSD: 100 T: 80 QT: 345 QTc: 412 Interpretive Statements SINUS RHYTHM MINIMAL ST DEPRESSION [0.025+ mV ST DEPRESSION] Compared to ECG 08/05/2023 17:28:17 ST (T wave) deviation now present Electronically Signed On 10-18-2023 17:13:25 CDT by Tree Couch M.D. [id number]
[2023-10-18 13:00] LABS: Basophils % 0.3 %; Eosinophils # 0.2 10^3/uL (0.0-0.8); Eosinophils % 1.5 %; Hematocrit 42.8 % (37-53); Lymphocytes # 1.1 10^3/uL (0.8-4.8); Lymphocytes % 10.2 %; Mean Corpuscular HGB Conc 32.9 g/dL (30-55); Mean Corpuscular Hemoglobin 31.6 pg (27-33); Mean Platelet Volume 8.8 fL (7.4-10.4); Monocytes # 0.7 10^3/uL (0.2-0.9); Monocytes % 6.6 %; Neutrophils # 8.63 10^3/uL (1.8-7.7); Nucleated Red Blood Cells % 0 %; Platelet Count 216 10^3/cmm (157-399); Red Blood Count 4.46 10^6/uL (3.85-5.65); Red Cell Distribution Width 12.3 % (12.1-15.1); White Blood Count 10.64 10^3/uL (3.29-11.43)
[2023-10-18 13:25] LABS: Ammonia 32 umol/L (16-60)
[2023-10-18 13:30] LABS: Alanine Aminotransferase 14 U/L (0-41); Albumin Level 4.1 g/dL (3.5-5.2); Alkaline Phosphatase 83 U/L (40-130); Anion Gap 15.8 (5-19); Aspartate Amino Transferase 15 U/L (0-40); Blood Urea Nitrogen 14 mg/dL (8-23); Calcium 8.5 mg/dL (8.5-10.5); Carbon Dioxide 23 mmol/L (22-29); Creatinine Clr Calc Pharmacy 57.8554; Globulin 3.3 g/dL (1.3-4.6); NT Pro B Type Natriuretic Pept < 36 pg/mL (0-450); Potassium 4.8 mmol/L (3.5-5.1); Sodium 142 mmol/L (136-145); Total Bilirubin 0.3 mg/dL (0.15-1.2); Total Protein 7.4 g/dL (6.6-8.7)
[2023-10-18] MEDS: sodium chloride 0.9% 1,000 ML 999 ML IV ×2 (13:30→13:34)
[2023-10-18 13:33] LABS: Chloride 108 mmol/L (98-107); Glucose 139 mg/dL (65-115); Osmolality Calculated 297 mOsm/kg (285-295)
--- NOTE | 2023-10-18 13:45 | PC.PHAR ---
PT IS [facility] L[facility] 10/18/23 1:45PM
--- NOTE | 2023-10-18 14:26 | PC.PHAR ---
PT VERIFIED RX MEDICATIONS AND SEVERAL OTC MEDICATIONS. PT ALSO STATES TAKES 3-4 DIFFERENT KINDS OF MUSHROOMS.
[2023-10-18 14:30] VITALS: BP 146/93; PULSE 90; RESP 18; O2SAT 90
[2023-10-18 15:01] LABS: Charge for UA Resulting for Rev
--- NOTE | 2023-10-18 15:02 | P.HP_ITS ---
Providers/Chief Complaint 2 Admitting Physician: Omid Hou Primary Care Provider: Willow Plasencia MD Chief Complaint: [facility] sent [facility] heart rate up and blood pressure low History of Present Illness Pleasant 78-year-old gentleman was brought in for evaluation after being noted to have difficulty with tasks, including using the phone, remote control, [facility] thinking that maybe he was having a UTI, they referred her to ER. In ER he could not produce urine initially, straight cath had to be performed to obtain a sample. CT of the head was performed with finding of wedge-shaped suspected subacute infarct in left frontal parietal temporal junction. May represent watershed infarct. No significant mass effect. No intracranial hemorrhage. Moderate small vessel changes with moderate parenchymal volume loss. Tiny chronic lacunar infarcts right caudate and basal ganglia. Vascular calcification. He denies past history of stroke. He reports having had severe diarrhea over the preceding day. Initial blood pressure in ER low 93/61, but with improvement with IV fluid bolus of 1 L. Review of Systems 2 Const: Denies: fever(s), chills, body aches or malaise ENMT: Denies: throat pain, oral sores or ear or mastoid pain Card: Denies: chest pain, edema, pre-syncope or dyspnea on exertion Resp: Denies: dyspnea, productive cough, change in phlegm color or hemoptysis GI: Reports: diarrhea; Denies: abdominal pain, nausea, vomiting, constipation, hematochezia or melena : Denies: flank pain, difficulty urinating, urinary frequency or hematuria Musc: Denies: back pain, joint swelling or joint redness Skin/Breast: Denies: rash or new lesions Neuro: Reports: other; Denies: headache(s) or dizziness Medications/Allergies Home Medications Medication Instructions Recorded Confirmed Last Taken Type omega 9-nxa-anp-fish oil 1,000 mg 1 cap PO BID 08/19/19 10/18/23 10/17/23 History (120 mg-180 mg) capsule (Fish Oil) atorvastatin 40 mg tablet 40 mg PO QPM 09/15/20 10/18/23 10/17/23 History carbamazepine 200 mg tablet 600 mg PO BID 09/15/20 10/18/23 10/17/23 History lisinopril 40 mg tablet 20 mg PO DAILY 09/15/20 10/18/23 10/17/23 History multivitamin 1 tab PO DAILY 09/23/20 10/18/23 10/17/23 History cetirizine 10 mg tablet 10 mg PO DAILY Allergy Symptoms 11/03/20 10/18/23 10/17/23 History hydrocodone 10 mg-acetaminophen 1 - 2 tab PO .Q4-6H PRN Pain 11/03/20 10/18/23 Unknown History 325 mg tablet oxybutynin chloride 5 mg tablet 5 mg PO DAILY 11/03/20 10/18/23 10/17/23 History vitamin E (dl, acetate) 180 mg 180 mg PO DAILY 11/03/20 10/18/23 10/17/23 History (400 unit) capsule budesonide 160 mcg-glycopyr 9 2 inh inhalation BID 30 days #10.7 12/28/22 10/18/23 10/17/23 Rx mcg-formot 4.8 mcg/actuation HFA grams inhaler (Breztri Aerosphere) ipratropium 0.5 mg-albuterol 3 mg 3 ml inhalation Q4H PRN COPD 05/08/23 10/18/23 Unknown History (2.5 mg base)/3 mL nebulization soln artificial tears(hypromellose) 0.3 1 drp ophthalmic (eye) Q4H PRN Dry 08/05/23 10/18/23 Unknown History % eye drops Eye(S) tamsulosin 0.4 mg capsule 0.4 mg PO QPM 08/05/23 10/18/23 10/17/23 History albuterol sulfate 90 mcg/actuation 2 inh inhalation Q8H PRN BREATHING 10/18/23 10/18/23 Unknown History aerosol inhaler aspirin 81 mg tablet,delayed 81 mg PO DAILY 10/18/23 10/18/23 10/17/23 History release carbamide peroxide 6.5 % ear drops 4 drp otic (ear) .Q30D 10/18/23 10/18/23 Unknown History (Debrox) cholecalciferol (vitamin D3) 50 50 mcg PO DAILY 10/18/23 10/18/23 10/17/23 History mcg (2,000 unit) tablet (Vitamin D3) phenylephrine-shark liver 1 applic AL BID PRN RECTAL SORENESS 10/18/23 10/18/23 Unknown History oil-mineral oil-petrolatum rectal ointment (Hemorrhoidal ointment) Allergies Allergy/AdvReac Type Severity Reaction Status Date / Time levofloxacin [From Levaquin] Allergy Severe Unknown Verified 05/08/23 15:48 azithromycin Allergy Intermediate rash Verified 05/08/23 15:48 shrimp Allergy Intermediate rash Verified 05/08/23 15:48 seafood Allergy ALGY-Rash Uncoded 05/08/23 15:48 PFSH Acute 2 PFSH: Medical History Chronic obstructive pulmonary disease Dependence on supplemental oxygen Erectile dysfunction Bipolar 1 disorder Hyperlipidemia ARPIT (obstructive sleep apnea) HTN (hypertension) Surgical History Hx of appendectomy Family History Mother , AT AGE 64 Cancer Diabetes Grandfather Diabetes Father , AT AGE 94 Lung disease Social History Smoking and tobacco/nicotine status: former use of tobacco/nicotine (2002) Quit status (tobacco/nicotine): has quit using Year quit tobacco: 2002 Former quit date comment: Hx of 2 PPD x 50 Years Alcohol intake: former Substance/Drug Use: never Lives independently: Yes Marital status: / service: Yes Current occupational status: retired Do you think of yourself as: Straight/Heterosexual Vitals/I&O/Wt Last Vital Signs Temp 97.9 F 10/18/23 12:10 Pulse 90 10/18/23 14:30 Resp 18 10/18/23 14:30 BP 146/93 10/18/23 14:30 Pulse Ox 90 10/18/23 14:30 O2 Del Method Nasal Cannula 10/18/23 12:10 O2 Flow Rate 4 10/18/23 12:10 10/18/23 10/18/23 10/18/23 06:59 14:59 22:59 Intake Total 66.6 / 66.6 Balance 66.6 / 66.6 Weight last 48 hrs Weight 74.843 kg Physical Exam 2 Narrative: Feeling cold in the ER room. Const: COMMON NORMALS: patient oriented x3 and alert GENERAL APPEARANCE: c ooperative ORIENTATION/CONSCIOUSNESS: Yes awake HENMT: COMMON NORMALS: oropharynx normal Neck/C-Spine: COMMON NORMALS: no JVD Resp: COMMON NORMALS: normal respiratory effort and clear to auscultation bilaterally AUSCULTATION: clear to auscultation bilaterally Cardio: COMMON NORMALS: no JVD, regular rhythm, S1 normal heart sound present, S2 normal heart sound present and No murmurs present (Cardio) RHYTHM: regular rhythm HEART SOUNDS: S1 normal heart sound present and S2 normal heart sound present GI: COMMON NORMALS: Normal to inspection, nondistended, normoactive bowel sounds present, Soft to palpation and non-tender PALPATION: Yes Soft to palpation Extremity: COMMON NORMALS: no joint enlargement and no pedal edema Neuro: COMMON NORMALS: patient oriented x3 and moves all extremities S ENSORIUM/ORIENTATION: Yes alert Skin: COMMON NORMALS: no rashes or lesions noted GENERAL SKIN EXAM: no rashes or lesions noted Data 10/18/23 12:44 10/18/23 12:44 Micro: Microbiology 10/18/23 12:48 Blood Culture - Preliminary Blood SPECIMEN COLLECTED 10/18/23 12:44 Blood Culture - Preliminary Blood SPECIMEN COLLECTED A&P Assessment and plan (1) Acute encephalopathy: A component of encephalopathy, possibly after CVA, versus metabolic, reports some decreased urine output, possibly early PEDRITO, creatinine noted 1.1, previously 0.8-0.9. Reviewed vitals, CBC, ABG, CMP, ammonia, lactic acid. TSH requested. UA is pending. Reviewed EKG, chest x-ray, head CT.EKG with sinus rhythm on my interpretation, not suggestive of atrial fibrillation, pending official read. Reviewed ER note, discussed with ER provider. Found to have difficulty performing tasks at home, using his phone, TV remote, in ER with some report of diarrhea over the preceding days, initially hypotensive, right frontal wedge-shaped subacute infarction left frontal parietal temporal junction possibly watershed infarct. Additionally tiny chronic lacunar infarcts in the right caudate and basal ganglia. Reports some urinary frequency, UA is pending. Does also have a bit of a tremor on exam. Will check carbamazepine level. With some feeling cold, chills, diarrhea yesterday, will assess respiratory viral panel. (2) CVA (cerebrovascular accident): As above incidentally noted on CT, with some difficulties performing tasks. Left frontal parietal temporal junction infarct, possibly watershed. Noted hypotensive on presentation, did respond to IV fluid. Does report diarrhea in the preceding days. Hold lisinopril, monitor for any additional hypotension. Prior admission He is awake and alert, interactive, no difficulty with following directions, does have somewhat of a tremor after dental issues requiring antibiotic back in July. Blood culture has been collected, pending. Afebrile, although he is feeling somewhat cold in the ER room. No leukocytosis. Additional workup with echocardiogram bubble study, carotid Doppler, telemetry monitoring. PT, OT, ST assessment. Aspirin 160 mg. Monitor for risk of bleeding. Atorvastatin. Lovenox DVT prophylaxis. Fall precautions. (3) Decreased urine output: Possible early PEDRITO, decreased urine output reported by patient. Creatinine up to 1.1. Reports had diarrhea in the preceding days. Possibly hypovolemia with hypotension on presentation. Hold lisinopril. Reassess vitals, reassess urine output, BUN, creatinine, electrolytes. Continue tamsulosin. (4) Hypotension: On presentation, reports diarrhea preceding days. Received fluid bolus, so far with response. Hold lisinopril. Reassess blood pressure. So far without additional diarrhea. Possible endorgan injury with possibly watershed infarct on CT, possible PEDRITO as above. With COPD, history of prednisone therapy, discussed with him consideration of possible adrenal insufficiency, although for now at least lab studies not suggestive of this and blood pressure so far appears to be responding to fluid challenge. Reassess. Plan BPH: Continue tamsulosin. Reports urinary frequency, denies dysuria, urgency. Pain. COPD: Continue nebs as needed. Budesonide. Usually on 2 L nasal cannula oxygen. ARPIT HTN: Hold lisinopril with hypotension HLD: Continue statin Bipolar disorder Other medical problems Attestations 2 Medical Necessity Statement*: Place in observation for additional assessment management after incidental finding of subacute CVA, possible PEDRITO, possible watershed injury, perhaps after hypotension, after diarrhea. Diagnoses Acute encephalopathy G93.40 CVA (cerebrovascular accident) I63.9 Decreased urine output R34 Hypotension I95.9
[2023-10-18 15:04] LABS: Bilirubin Urine 1+ (Negative); Blood Urine 1+ (Negative); Glucose Urine UA Negative (Normal); Ketones Urine Trace (Negative); Leukocyte Esterase Urine Trace (Negative); Nitrate Urine Negative (Negative); Protein Urine 1+ (Negative); Specific Gravity, Urine 1.029 (1.005-1.030); Urine Appearance Cloudy (CLEAR); Urine Color Dark Yellow (Yellow)
[2023-10-18 15:09] LABS: Bacteria Urine None Seen /hpf; Hyaline Casts Urine 4.52 /lpf; RBC Urine 21-50 /hpf (0-2); Squamous Epithelial Cell Urine 0-5 /hpf (0-5)
[2023-10-18 15:27] VITALS: BMI 23.8
--- NOTE | 2023-10-18 15:38 | USCV_ITS ---
Gamal Forrester Age: 78 Gender: M : 1945 Exam Date: 10/18/2023 19:00 Ordering Phys: Omid Hou MD Technologist: YAYA [place]am [place] [facility] [place]: CVA, COPD, O2-dependent 4L. BP: 175 / 97 HR: 81 Rhythm: Sinus Technical Quality: Technically difficult study MEASUREMENTS (Male / Female) Normal Values 2D ECHO LV Diastolic Diameter PLAX 4.0 cm 4.2 - 5.9 / 3.9 - 5.3 cm IVS Diastolic Thickness 1.3 cm 0.6 - 1.0 / 0.6 - 0.9 cm IVS Systolic Thickness 1.7 cm LVPW Diastolic Thickness 1.2 cm 0.6 - 1.0 / 0.6 - 0.9 cm LVPW Systolic Thickness 1.6 cm LVOT Diameter 2.1 cm LV Ejection Fraction 2D Teich 57.9 % LV Ejection Fraction MOD 4C 61.1 % LV Ejection Fraction MOD 2C 66.9 % LV Ejection Fraction 2C AL 67.7 % LA Diameter 2.5 cm Aorta at Sinotubular Diameter 3.3 cm IVC Diameter 2.0 cm M-MODE LA Ao Ratio MM 1.0 AV Cusp Separation MM 1.7 cm DOPPLER AV Peak Velocity 103.0 cm/s LVOT Peak Velocity 58.0 cm/s AV Area Cont Eq vti 2.1 cm squared AV Area Cont Eq pk 2.0 cm squared MV Peak Velocity 74.0 cm/s MV Area PHT 6.0 cm squared Mitral E to A Ratio 0.8 TR Peak Velocity 198.0 cm/s TR Peak Gradient 15.7 mmHg TV Peak E Velocity 49.0 cm/s Right Atrial Pressure 3.0 mmHg Pulmonary Artery Systolic Pressu 18.7 mmHg PV Peak Velocity 101.0 cm/s FINDINGS Left Ventricle Technically limited quality echocardiogram. LV systolic function is normal with EF of 55 to 60%. No regional wall motion abnormalities are seen. Grade 1 diastolic dysfunction. Right Ventricle Normal in size and function. Right Atrium Normal in size. Bubble study is suboptimal because of limited visualization. Can not rule out intracardiac shunting. Left Atrium Normal in size Mitral Valve Grossly normal Aortic Valve Grossly normal. No significant stenosis or regurgitation. Tricuspid Valve Insufficient TR jet to calculate RVSP Pulmonic Valve Not well visualized Pericardium Normal Aorta Normal in size IVC Appears to be normal CONCLUSIONS Technically limited quality echocardiogram because of poor ultrasonic windows. LV systolic function is normal with EF of 55 to 60%. Grade 1 diastolic dysfunction. Bubble study is suboptimal because of limited visualization. Cannot rule out intracardiac shunting. Tree Couch MD (Electronically Signed) Final Date: 19 October 2023 09:03 S
[2023-10-18 16:00] VITALS: BP 175/97; PULSE 101; TEMP 36.4; O2SAT 96
[2023-10-18 16:25] LABS: Thyroid Stimulating Hormone 1.15 uIU/mL (0.27-4.20)
[2023-10-18 16:31] LABS: Add Urine Culture? Yes
[2023-10-18 16:51] LABS: Carbamazepine Tegretol 8.8 ug/mL (4.0-12.0)
[2023-10-18 16:51] LABS: Calcium Oxalate Crystals Urine 15-25 /hpf
[2023-10-18] MEDS: tamsulosin 0.4 mg Capsule PO (18:04)
[2023-10-18] MEDS: enoxaparin 40 mg/0.4 mL Syringe SUBCUT (18:04)
[2023-10-18] MEDS: carBAMazepine 200 mg Tablet 600 MG PO (18:04)
[2023-10-18] MEDS: atorvastatin 40 mg Tablet PO (18:04)
[2023-10-18] MEDS: HYDROcodone-acetaminophen 10-325 mg Tablet 0.5 TAB PO (18:12)
[2023-10-18 20:00] VITALS: BP 152/89; PULSE 87; RESP 18; TEMP 37.2; O2SAT 96
[2023-10-18 20:27] LABS: Adenovirus Not Detected (NOT DETECT); Chlamydia Pneumoniae Not Detected (NOT DETECT); Coronavirus 229E,HKU1,NL63,OC4 Not Detected (NOT DETECT); Human Metapneumovirus Not Detected (NOT DETECT); Human Rhinovirus/Enterovirus Not Detected (NOT DETECT); Influenza A Not Detected (NOT DETECT); Influenza A H1 Not Detected (NOT DETECT); Influenza A H1-2009 Not Detected (NOT DETECT); Influenza A H3 Not Detected (NOT DETECT); Influenza B Not Detected (NOT DETECT); Mycoplasma Pneumoniae Not Detected (NOT DETECT); Parainfluenza Virus Type 1 Not Detected (NOT DETECT); Parainfluenza Virus Type 2 Not Detected (NOT DETECT); Parainfluenza Virus Type 3 Not Detected (NOT DETECT); Parainfluenza Virus Type 4 Not Detected (NOT DETECT); Respiratory Syncytial Virus A Not Detected (NOT DETECT); Respiratory Syncytial Virus B Not Detected (NOT DETECT); SARS-COV-2 Not Detected (NOT DETECT)
[2023-10-18] MEDS: HYDROcodone-acetaminophen 5-325 mg Tablet 1 TAB PO (21:30)
[2023-10-19] VITALS (9 sets, daily range): BP systolic 133–191; BP diastolic 71–102; PULSE 79–130; RESP 14–20; TEMP 36.6–36.8; O2SAT 94–99
--- NOTE | 2023-10-19 01:20 | PC.NURSE ---
This nurse and SAWYER Segal performed bedside report at 1850 on 10/18/2023. During that time Rolando office technology instructor, was at the bedside setting up to perform an echocardiogram and bubble study. The pt had no complaints of pain or discomfort at that time, but was annoyed that his dinner was interrupted. This nurse and SAWYER Segal then left the room. At 1905 the pt used his call light to request pain medication. This nurse checked the MAR and saw the previous nurse had given prn hydrocodone at 181. This nurse pulled prn tylenol and offered it to the pt, who was receiving the echocardiogram at this time. The pt stated I don't want tylenol, that doesn't do anything for me and that's bad for me. This nurse explained that because the previous nurse had already administered the prn hydrocodone, a second dose could not be administered at this time. The pt then became visibly irritated and stated That's crap, I haven't gotten any pain medicine while I've been here. They do this every time and won't give me what I need and they take away what I take at home. This nurse offered tylenol and non-pharmacological pain reduction methods again and the pt once again denied. This nurse explained that due to the previous nurse's documentation, another dose could not be given yet. The pt repeatedly stated in a seemingly angry manner that he had not received any pain medication at all. This nurse stated that the doctor would be contacted to request additional medication. At 2101 Dr Rodriguez gave this nurse an order for hydrocodone-tylenol 5-325 PO once and this nurse went to administer it. This nurse gave the pt the pill and then began the head-to-toe assessment, during which this nurse found a white oval pill that appeared to be a norco. The pt stated What, let me see. This nurse held up the pill for the pt to see, and he took it out of this nurse's hand and shoved it into his right pocket, stating That's my emergency pills for when you people don't medicate me the way that I should. This nurse explained that that was unacceptable and that any medications the pt had on hand needed to be seen and documented by nursing staff, and that staff cannot continue to medicate him if he is taking home medications that we are unaware of as it is a safety risk. The pt stated Well I'm not going to take it as long as you people take care of me like you should. This nurse notified Erma flower pot press operator, of the situation and both Erma and this nurse went to speak to the pt. The pt was very hesitant to take out his medications, and repeatedly stated that he would not take his home meds as long as we medicated him. SAWYER Ritchie explained the safety risks to him and that we have to visibly see and count any controlled medications the pt has on his person. After 10 minutes of discussion the pt agreed to let staff see and count his medications. He pulled out a folded up white napkin from his right pocket and unfolded it very carefully, but not all the way, and did not let staff see inside of the fold of the napkin. The pt held up one norco and stated This is it.
[2023-10-19] MEDS: HYDROcodone-acetaminophen 10-325 mg Tablet 0.5 TAB PO ×2 (01:47→05:47)
[2023-10-19 04:54] LABS: Basophils % 0.3 %; Eosinophils # 0.1 10^3/uL (0.0-0.8); Hematocrit 38.2 % (37-53); Lymphocytes % 15.4 %; Mean Corpuscular HGB Conc 33.5 g/dL (30-55); Mean Corpuscular Volume 95.5 fl (82-101); Mean Platelet Volume 9.1 fL (7.4-10.4); Monocytes # 0.5 10^3/uL (0.2-0.9); Monocytes % 7.8 %; Neutrophils # 4.76 10^3/uL (1.8-7.7); Neutrophils % 74.2 %; Nucleated Red Blood Cells % 0 %; Platelet Count 190 10^3/cmm (157-399); Red Cell Distribution Width 11.9 % (12.1-15.1); White Blood Count 6.42 10^3/uL (3.29-11.43)
[2023-10-19 05:16] LABS: Alanine Aminotransferase 17 U/L (0-41); Albumin Level 3.7 g/dL (3.5-5.2); Alkaline Phosphatase 81 U/L (40-130); Anion Gap 13.1 (5-19); Aspartate Amino Transferase 16 U/L (0-40); Blood Urea Nitrogen 12 mg/dL (8-23); Calcium 8.2 mg/dL (8.5-10.5); Carbon Dioxide 25 mmol/L (22-29); Chloride 105 mmol/L (98-107); Estmated Average Glucose 108; Globulin 2.9 g/dL (1.3-4.6); Glucose 119 mg/dL (65-115); Hemoglobin A1C 5.4 % (4.0-6.0); Osmolality Calculated 289 mOsm/kg (285-295); Potassium 4.1 mmol/L (3.5-5.1); Sodium 139 mmol/L (136-145); Total Bilirubin 0.3 mg/dL (0.15-1.2); Total Protein 6.6 g/dL (6.6-8.7)
[2023-10-19 05:18] LABS: Chol HDL Ratio 3.12 mg/dL (1.0-5.00); Cholesterol 153 mg/dL (0-200); HDL Cholesterol 49 mg/dL (60-100); LDL Cholesterol Calculated 81 mg/dL (50-129); LDL HDL Ratio 1.65 RATIO (0.00-3.22); Triglycerides 115 mg/dL (0-150)
--- NOTE | 2023-10-19 06:00 | USCV_ITS ---
RmGamal harrington Age: 78 Gender: M : 1945 Exam Date: 10/19/2023 07:59 Ordering Phys: Omid Hou MD Technologist: Exam Location: [facility] [place] Indication: tia cca disease Risk Factors: Previous Vascular Surgery: Right Brachial BP: / Left Brachial BP: / Right Left Velocity (cm/s) Spectral Plaque Velocity (cm/s) Spectral Plaque Syst/Diast Broadening Syst/Diast Broadening 102.20/28.40 Prox CCA 55.00 / 15.00 102.20/23.20 Mid CCA 51.00 / 16.00 72.40/ 23.20 Hetro Distal CCA 45.30 / 14.70 Hetro 87.00/ 16.00 Hetro Prox ICA 46.00 / 15.00 Hetro 111.40/22.10 Mid ICA 46.70 / 15.00 87.00/ 24.10 Distal ICA 47.80 / 10.80 180.30 ECA 152.50 1.50 ICA/CCA 1.10 Antegrade Vertebral Antegrade 64.00/ 12.00 cm/s 63.20/ 13.90 cm/s Bi Subclavian Bi 44.90 139.9 0 CONCLUSIONS Right ICA stenosis <50%. Moderate atheromatous plaque right carotid bulb/ICA. Left ICA stenosis <50%. Moderate atheromatous plaque left carotid bulb/ICA. Normal antegrade Doppler flow noted in the right vertebral artery. Normal antegrade Doppler flow noted in the left vertebral artery. Pablo Bojorquez MD (Electronically Signed) Final Date: 19 October 2023 09:11 S
[2023-10-19] MEDS: albuterol 2.5 mg/3 mL Neb INHALATION (07:36)
--- NOTE | 2023-10-19 08:51 | PC.CHAP ---
Pastoral Care Encounter/Spiritual Assessment Type of Contact [] Declined patent paralegal visit [] Patient/Family/Request visit [] Outpatient visit [] Follow-up visit [] Physician referral [] Code/Alert [x] Routine visit [] Staff referral [] Actively dying [] Patient sleeping [] Family support [] [] Out of room [] Palliative care [] [] Receiving care in room [] Pre-surgical visit [] Trauma [] Long length of stay [] ICU visit [] Other: Relational/Emotional Strength x] Patient feels connected with others/family/visitors/staff [] Distress [] Loneliness/isolation [] Abandonment Spirituality of Patient [] Person of Mary [] Attends Religious of their Mary [x] Believes in Prayer [] Reads Bible or Jewish materials [] There are Spiritual issues to be addressed Access Control Specialist Interventions [x] Prayer [] Active listening [x] Non-anxious presence [x] Spiritual/emotional support [] Crisis/trauma care [] Spiritual counseling [] Bereavement support [] Provided bereavement packet [] Provided Bible/devotional materials [] Provided toy/stuffed animal, coloring book to patient or family member [] Provided Communion [] Anointing/Pigeon [] Salvation [x] Completed spiritual assessment [] Other: Impact on Illness or Injury [] Angry [] Fearful [] Anxious [] Often cries [] Exhaustion [] Unable to work [] Unable to attend hindu [] Unable to walk/stand [] Unable to read [] Unable to drive [] Unable to eat/drink [] Unable to sleep [] Unable to be with family [] Patient intubated [] Other: Summary Time spent with patient 5 min
--- NOTE | 2023-10-19 09:34 | PC.NURSE ---
This nurse explained to the patient that we could not allow him to keep loose pills at bedside. Patient agreed to giving them to me if I placed them in a bag with his name on it. I did that at bedside with security present. Patient asked me to give them to his son when he arrived. I told them I would lock them in the pyxis until the son arrived.
[2023-10-19] MEDS: carBAMazepine 200 mg Tablet 600 MG PO ×2 (09:39→17:36)
[2023-10-19] MEDS: aspirin 81 mg EC Tablet 162 MG PO (09:39)
[2023-10-19] MEDS: cetirizine 10 mg Tablet PO (09:40)
[2023-10-19] MEDS: oxybutynin 5 mg Tablet PO (09:40)
[2023-10-19] MEDS: lisinopril 5 mg Tablet PO (11:22)
[2023-10-19] MEDS: HYDROcodone-acetaminophen 10-325 mg Tablet PO ×2 (11:22→16:21)
--- NOTE | 2023-10-19 15:16 | PM.DCS ---
Discharge Providers Date of Admission: 10/18/23 14:54 Date of Discharge: October 19, 2023 Attending Provider at Admission: Omid Hou Attending Provider at Discharge: Omid Hou Primary Care Provider: Willow Plasencia MD Diagnoses at Discharge Discharge Diagnosis (1) Acute encephalopathy: Status: Acute (2) CVA (cerebrovascular accident): Status: Acute (3) Decreased urine output: Status: Acute (4) Hypotension: Status: Resolved Reason for Visit Reason for Visit: [facility] up and blood pressure low Brief History: Pleasant 78-year-old gentleman was brought in for evaluation after being noted to have difficulty with tasks, including using the phone, remote control, [facility] thinking that maybe he was having a UTI, they referred her to ER. In ER he could not produce urine initially, straight cath had to be performed to obtain a sample. CT of the head was performed with finding of wedge-shaped suspected subacute infarct in left frontal parietal temporal junction. May represent watershed infarct. No significant mass effect. No intracranial hemorrhage. Moderate small vessel changes with moderate parenchymal volume loss. Tiny chronic lacunar infarcts right caudate and basal ganglia. Vascular calcification. He denies past history of stroke. He reports having had severe diarrhea over the preceding day. Initial blood pressure in ER low 93/61, but with improvement with IV fluid bolus of 1 L. Hospital Course Hospital Course Carotid Doppler showed less than 50% stenosis, echocardiogram with normal ejection fraction, discussed with him bubble study performed, but images not good enough and quality to tell intracardiac shunt. He continues on aspirin and we discussed with him Plavix for 21 days. Continue statin. Follow-up with neurology. He is otherwise doing well today and feeling much better after rehydration. Likely dehydrated after diarrhea. Renal function also improved, creatinine down to 0.9. Blood pressure elevated this morning, resumed on lower dose lisinopril due to hypotension on presentation. He is encouraged to continue monitor blood pressures, reduce lisinopril down to 5 mg, avoid hypotension. Continue to optimize cardiovascular risk factors due to stroke. He was seen by physical therapy, with recommendation for home exercise program, and he is not interested in considering rehabilitation at alf. He is otherwise afebrile without signs of infection, UA without sign of UTI, respiratory viral panel negative. He will continue on tamsulosin, follow-up with primary provider with regards to BPH. Continue follow-up regarding chronic pain, large doses of opioids, revisited risks with him. Continue to de-escalate where condition allows due to chronic risks. Physical Exam Narrative: He states he is feeling better. He would like to take a nap before discharge home. Const: COMMON NORMALS: patient oriented x3 and alert GENERAL APPEARANCE: cooperative ORIENTATION/CONSCIOUSNESS: Yes awake HENMT: COMMON NORMALS: oropharynx normal Neck/C-Spine: COMMON NORMALS: no JVD Resp: COMMON NORMALS: normal respiratory effort and clear to auscultation bilaterally AUSCULTATION: clear to auscultation bilaterally Cardio: COMMON NORMALS: no JVD, regular rhythm, S1 normal heart sound present, S2 normal heart sound present and No murmurs present (Cardio) RHYTHM: regular rhythm HEART SOUNDS: S1 normal heart sound present and S2 normal heart sound present GI: COMMON NORMALS: Normal to inspection, nondistended, normoactive bowel sounds present, Soft to palpation and non-tender PALPATION: Yes Soft to palpation Extremity: COMMON NORMALS: no joint enlargement and no pedal edema Neuro: COMMON NORMALS: patient oriented x3 and moves all extremities SENSORIUM/ORIENTATION: Yes alert Skin: COMMON NORMALS: no rashes or lesions noted GENERAL SKIN EXAM: no rashes or lesions noted Discharge Data Studies Completed and Pending Completed Studies During Hospitalization Category Date Time Status CT head wo con* [id number] Stat Cat Scan 10/18/23 12:22 Completed XR chest 1V portable [id number] Stat Exams 10/18/23 12:07 Completed CV carotid duplex BI* [id number] Routine Ultrasound 10/19/23 06:00 Completed CV. echo w/w bubble cont [id number] Routine Ultrasound 10/18/23 15:38 Completed Pending at discharge Category Date Time Status Blood Culture Stat Lab 10/18/23 12:48 Results Complete Blood Count w/Auto AM LABS Lab 10/20/23 04:00 Ordered Complete Blood Count w/Auto AM LABS Lab 10/21/23 04:00 Ordered Comprehensive Metabolic Panel AM LABS Lab 10/20/23 04:00 Ordered Comprehensive Metabolic Panel AM LABS Lab 10/21/23 04:00 Ordered Urine Culture Stat Lab 10/18/23 13:52 Received Radiology Impressions Chest X-Ray 10/18/23 12:07 Impression: Hyperinflation and atherosclerosis. Head CT 10/18/23 12:22 IMPRESSION: 1. Wedge-shaped suspected subacute infarct in the LEFT frontal parietal temporal junction described above. This may represent a watershed infarct. This could be further evaluated with MRI if indicated. 2. No significant mass effect. 3. No intracranial hemorrhage. 4. Moderate small vessel changes with moderate parenchymal volume loss. 5. Tiny chronic lacunar infarcts RIGHT caudate and basal ganglia. 6. Vascular calcification Message LEFT for Romain Yan MD at 10/18/2023 12:59 PM. Laboratory Results WBC 6.42 10^3/uL (3.29-11.43) 10/19/23 04:19 RBC 4.00 10^6/uL (3.85-5.65) 10/19/23 04:19 Hgb 12.80 g/dL (11.27-16.99) 10/19/23 04:19 Hct 38.2 % (37-53) 10/19/23 04:19 MCV 95.5 fl (82-101) 10/19/23 04:19 MCH 32.0 pg (27-33) 10/19/23 04:19 MCHC 33.5 g/dL (30-55) 10/19/23 04:19 RDW 11.9 % (12.1-15.1) L 10/19/23 04:19 Plt Count 190 10^3/cmm (157-399) 10/19/23 04:19 MPV 9.1 fL (7.4-10.4) 10/19/23 04:19 Neut % (Auto) 74.2 % 10/19/23 04:19 Lymph % (Auto) 15.4 % 10/19/23 04:19 Antelope % (Auto) 7.8 % 10/19/23 04:19 Eos % (Auto) 2.0 % 10/19/23 04:19 Baso % (Auto) 0.3 % 10/19/23 04:19 Neut # (Auto) 4.76 10^3/uL (1.8-7.7) 10/19/23 04:19 Lymph # (Auto) 1.0 10^3/uL (0.8-4.8) 10/19/23 04:19 Antelope # (Auto) 0.5 10^3/uL (0.2-0.9) 10/19/23 04:19 Eos # (Auto) 0.1 10^3/uL (0.0-0.8) 10/19/23 04:19 Baso # (Auto) 0.0 10^3/uL (0.0-0.1) 10/19/23 04:19 Nucleated RBC % (auto) 0 % 10/19/23 04:19 Nucleated RBCs # 0.0 /100WBC 10/19/23 04:19 Specimen Type Arterial 10/18/23 12:22 Sample Site Brachial, left 10/18/23 12:22 ABG pH 7.37 (7.35-7.45) 10/18/23 12:22 ABG pCO2 43.7 mmHg (35-45) 10/18/23 12:22 ABG pO2 100.0 mmHg (80.0-100.0) 10/18/23 12:22 ABG PO2/FiO2 Ratio 277 10/18/23 12:22 ABG HCO3 25.3 mmol/L (22-26) 10/18/23 12:22 ABG O2 Saturation 98.1 10/18/23 12:22 ABG Base Excess -0.3 mmol/L (-2.0-2.0) 10/18/23 12:22 Jaxson Test N/a 10/18/23 12:22 A-a O2 Gradient 13.1 mmHg (5-10) H 10/18/23 12:22 Hematocrit 45.0 % (42-52) 10/18/23 12:22 Hgb O2 Saturation 96.5 % (95-100) 10/18/23 12:22 Carboxyhemoglobin 0.5 %THgb (0.4-20.1) 10/18/23 12:22 Methemoglobin 1.1 % (0.4-1.5) 10/18/23 12:22 Total Hemoglobin 14.7 g/dL (14-18) 10/18/23 12:22 Sodium 141.0 mmol/L (131-143) 10/18/23 12:22 Potassium 3.9 mmol/L (3.5-5.0) 10/18/23 12:22 Glucose 145.0 mg/dL (70-115) H 10/18/23 12:22 Ionized Calcium 1.2 mmol/L (1.1-1.4) 10/18/23 12:22 O2 Delivery Device Nc 10/18/23 12:22 O2 Liters/Min 4.0 % 10/18/23 12:22 FiO2 36.0 % 10/18/23 12:22 [employer]er Driver ID Amh 10/18/23 12:22 Sodium 139 mmol/L (136-145) 10/19/23 04:19 Potassium 4.1 mmol/L (3.5-5.1) 10/19/23 04:19 Chloride 105 mmol/L (98-107) 10/19/23 04:19 Carbon Dioxide 25 mmol/L (22-29) 10/19/23 04:19 Anion Gap 13.1 (5-19) 10/19/23 04:19 BUN 12 mg/dL (8-23) 10/19/23 04:19 Creatinine 0.9 mg/dL (0.7-1.2) 10/19/23 04:19 GFR Calculation Not Reportable 10/19/23 04:19 Glucose 119 mg/dL (65-115) H 10/19/23 04:19 Estimat Average Glucose 108 10/19/23 04:19 Hemoglobin A1c 5.4 % (4.0-6.0) 10/19/23 04:19 Calculated Osmolality 289 mOsm/kg (285-295) 10/19/23 04:19 Lactic Acid 1.0 mmol/L (0.5-2.2) 10/18/23 12:44 Calcium 8.2 mg/dL (8.5-10.5) L 10/19/23 04:19 Total Bilirubin 0.3 mg/dL (0.15-1.2) 10/19/23 04:19 AST 16 U/L (0-40) 10/19/23 04:19 ALT 17 U/L (0-41) 10/19/23 04:19 Alkaline Phosphatase 81 U/L (40-130) 10/19/23 04:19 Ammonia 32 umol/L (16-60) 10/18/23 12:44 NT-Pro-B Natriuret Pep < 36 pg/mL (0-450) 10/18/23 12:44 Total Protein 6.6 g/dL (6.6-8.7) 10/19/23 04:19 Albumin 3.7 g/dL (3.5-5.2) 10/19/23 04:19 Globulin 2.9 g/dL (1.3-4.6) 10/19/23 04:19 Triglycerides 115 mg/dL (0-150) 10/19/23 04:19 Cholesterol 153 mg/dL (0-200) 10/19/23 04:19 LDL Cholesterol, Calc 81 mg/dL (50-129) 10/19/23 04:19 HDL Cholesterol 49 mg/dL (60-100) L 10/19/23 04:19 LDL/HDL Ratio 1.65 RATIO (0.00-3.22) 10/19/23 04:19 Cholesterol/HDL Ratio 3.12 mg/dL (1.0-5.00) 10/19/23 04:19 TSH 1.15 uIU/mL (0.27-4.20) 10/18/23 12:44 Urine Color Dark yellow (Yellow) A 10/18/23 13:52 Urine Appearance Cloudy (CLEAR) A 10/18/23 13:52 Urine pH 5.0 (5-7) 10/18/23 13:52 Ur Specific [place] 1.029 (1.005-1.030) 10/18/23 13:52 Urine Protein 1+ (Negative) A 10/18/23 13:52 Urine Glucose (UA) Negative (Normal) 10/18/23 13:52 Urine Ketones Trace (Negative) 10/18/23 13:52 Urine Blood 1+ (Negative) A 10/18/23 13:52 Urine Nitrate Negative (Negative) 10/18/23 13:52 Urine Bilirubin 1+ (Negative) H 10/18/23 13:52 Urine Urobilinogen 1.0 mg/dL (Negative) 10/18/23 13:52 Ur Leukocyte Esterase Trace (Negative) A 10/18/23 13:52 Urine RBC 21-50 /hpf (0-2) 10/18/23 13:52 Urine WBC 6-10 /hpf (0-5) 10/18/23 13:52 Ur Squamous Epith Cells 0-5 /hpf (0-5) 10/18/23 13:52 Calcium Oxalate Crystal 15-25 /hpf H 10/18/23 13:52 Amorphous Sediment Not Reportable 10/18/23 13:52 Urine Bacteria None seen /hpf (NONE) 10/18/23 13:52 Hyaline Casts 4.52 /lpf 10/18/23 13:52 Carbamazepine 8.8 ug/mL (4.0-12.0) 10/18/23 12:44 Adenovirus (PCR) Not detected (NOT DETECT) 10/18/23 18:31 C. pneumoniae DNA (PCR) Not detected (NOT DETECT) 10/18/23 18:31 Coronavirus 229E (PCR) Not detected (NOT DETECT) 10/18/23 18:31 Human Metapneumovir PCR Not detected (NOT DETECT) 10/18/23 18:31 Influenza A (H1) PCR Not detected (NOT DETECT) 10/18/23 18:31 Influ A (H1/09) PCR Not detected (NOT DETECT) 10/18/23 18:31 Influenza A (H3) PCR Not detected (NOT DETECT) 10/18/23 18:31 Influenza Type A (PCR) Not detected (NOT DETECT) 10/18/23 18:31 Influenza Type B (PCR) Not detected (NOT DETECT) 10/18/23 18:31 M. pneumoniae (PCR) Not detected (NOT DETECT) 10/18/23 18:31 Parainfluenza 1 (PCR) Not detected (NOT DETECT) 10/18/23 18:31 Parainfluenza 2 (PCR) Not detected (NOT DETECT) 10/18/23 18:31 Parainfluenza 3 (PCR) Not detected (NOT DETECT) 10/18/23 18:31 Parainfluenza 4 (PCR) Not detected (NOT DETECT) 10/18/23 18:31 RSV Type A (PCR) Not detected (NOT DETECT) 10/18/23 18:31 RSV Type B (PCR) Not detected (NOT DETECT) 10/18/23 18:31 Entero/Rhino (PCR) Not detected (NOT DETECT) 10/18/23 18:31 SARS-CoV-2 (PCR) Not detected (NOT DETECT) 10/18/23 18:31 Vitals Last Vital Signs Temp 97.8 F 10/19/23 12:00 Pulse 90 10/19/23 12:00 Resp 14 10/19/23 12:00 BP 133/71 10/19/23 12:00 Pulse Ox 96 10/19/23 12:00 O2 Del Method Room Air 10/19/23 12:00 O2 Flow Rate 3 08/01/24 07:43 Discharge Plan Discharge Patient Disposition: Home Condition: Stable Prescriptions: New clopidogrel 75 mg tablet 75 mg PO DAILY Qty: 90 0RF lisinopril 5 mg Tablet 5 mg PO DAILY Qty: 90 0RF Continued omega 0-svi-vxk-fish oil [Fish Oil] 1,000 mg (120 mg-180 mg) capsule 1 cap PO BID carbamazepine 200 mg tablet 600 mg PO BID vitamin E (dl, acetate) 400 unit capsule 180 mg PO DAILY hydrocodone-acetaminophen 10-325 mg tablet 1 - 2 tab PO .Q4-6H PRN (Reason: Pain) oxybutynin chloride 5 mg tablet 5 mg PO DAILY cetirizine 10 mg tablet 10 mg PO DAILY atorvastatin 40 mg tablet 40 mg PO QPM multivitamin Tablet 1 tab PO DAILY ipratropium-albuterol 0.5 mg-3 mg(2.5 mg base)/3 mL solution for nebulization 3 ml inhalation Q4H PRN (Reason: COPD) Breztri Aerosphere 160-9-4.8 mcg/actuation HFA aerosol inhaler 2 inh inhalation BID 30 Days Qty: 10.7 6RF tamsulosin 0.4 mg Capsule 0.4 mg PO QPM artificial tears(hypromellose) 0.3 % Drops 1 drp OPHTHALMIC (EYE) Q4H PRN (Reason: Dry Eye(S)) Aspir-81 81 mg Tablet,Delayed Release (Dr/Ec) 81 mg PO DAILY Debrox 6.5 % Drops 4 drp OTIC (EAR) .Q30D Hemorrhoidal Ointment 1 applic SD BID PRN (Reason: RECTAL SORENESS) Vitamin D3 50 mcg (2,000 unit) Tablet 50 mcg PO DAILY albuterol sulfate 90 mcg/actuation HFA aerosol inhaler 2 inh inhalation Q8H PRN (Reason: BREATHING) Discontinued lisinopril 40 mg tablet 20 mg PO DAILY Discharge Orders: Discharge Order (Routine); Ordered 10/19/23 Ordered By: Omid Hou Referrals: [facility] [Provider Group] - 1 week Willow Plasencia MD [Primary Care Provider] - 4-7 days Discharge Diet: As Directed and Cardiac Patient Instructions: Clopidogrel (By mouth), Ischemic Stroke (GEN), Altered Mental Status (ED), Opioid Safety Activity Restrictions/Additional Instructions: Follow-up with your primary provider and urology for assessment after a stroke. Continue aspirin, atorvastatin. Also started on Plavix, take Plavix for 21 days together with aspirin then continue aspirin alone. Please stop your current dose of lisinopril. Your blood pressure was very low on presentation. You are given a prescription for lower dose lisinopril 5 mg. Monitor blood pressure 3 times daily. Avoid low blood pressures. Target blood pressure 120/80 to 140/90. Continue with heart healthy diet with food which is easy to chew. Follow-up with your primary doctor for optimization of cardiovascular risk factors. As well as for reassessment of prostate enlargement and urinary frequency. Continue Flomax. Have your primary doctor reassess your kidney function at next visit. Seek medical attention in case of any worsening or new concerning symptoms as discussed. Continue attempts to wean off to the extent possible off of opioid medication due to associated risks, continue follow-up with your primary provider, pain clinic. Be aware that hydrocodone can also decrease your blood pressure. Discharge Attestations Time Spent in Discharge Care*: greater than 30 min Quality Metrics Clinical Quality Measures [ Cerebrovascular Accident { Contraindication to Antithrombotic: None; antithrombotic prescribed; Contraindication to Anticoagulation: Overlap treatment not indicated; Contraindication to Statin: None; Statin prescribed;}] Coding Level of Care Code 25647 Total time (in minutes) for Discharge: 50 Diagnoses Acute encephalopathy G93.40 CVA (cerebrovascular accident) I63.9 Decreased urine output R34 Hypotension I95.9
[2023-10-19] MEDS: enoxaparin 40 mg/0.4 mL Syringe SUBCUT (16:00)
--- NOTE | 2023-10-19 16:29 | PC.SLP ---
PANEL BUILDER assessment not completed. Pt is being discharged from the facility.
[2023-10-19] MEDS: tamsulosin 0.4 mg Capsule PO (17:36)
[2023-10-19] MEDS: atorvastatin 40 mg Tablet PO (17:36)
== END 2023-10-19 18:00 | disposition home or self-care (01) ==
LOC: ER 14:32 → MEDSURG 16:44
PROVIDERS: Admitting Provider Internal Medicine; Emergency Provider Emergency Medicine; PCP Family Medicine; Visit Provider Internal Medicine
DX: G93.40 Encephalopathy, unspecified (principal); I63.9 Cerebral infarction, unspecified; R34 Anuria and oliguria; I95.9 Hypotension, unspecified; Z79.82 Long term (current) use of aspirin; Z79.02 Long term (current) use of antithrombotics/antiplatelets; R19.7 Diarrhea, unspecified; N40.0 Benign prostatic hyperplasia without lower urinary tract symptoms; J44.9 Chronic obstructive pulmonary disease, unspecified; E78.5 Hyperlipidemia, unspecified; G47.33 Obstructive sleep apnea (adult) (pediatric); I10 Essential (primary) hypertension; Z87.891 Personal history of nicotine dependence; Z99.81 Dependence on supplemental oxygen
CPT/HCPCS: 36415; 36600; 70450; 71045; 80051; 80053; 80061; 80156; 81003; 81015; 82140; 82330; 82805; 83036; 83605; 83880; 84443; 85025; 87040; 87086; 87486; 87581; 87633; 93005; 93880; 94640; 96360; 96372; 97110; 97116; 97161; 97166; 99285; C8929; G0378; J1650; J7030; J7613

== ENCOUNTER 2024-12-30 16:24 | Inpatient (IN) | payer OTHER, SELFPAY ==
[2024-12-30] VITALS (7 sets, daily range): BP systolic 113–172; BP diastolic 75–112; PULSE 94–121; RESP 16–18; TEMP 36.3–36.6; O2SAT 95–100; BMI 20.9
--- NOTE | 2024-12-30 15:37 | ECG_ITS ---
[facility] [employer] Test Date: 2024-12-30 Pat Name: Gamal Forrester Department: Room: Gender: Male Philosophy Professor: : 1945 Requested By: Armando Strong Order Number: [id number] Di MD: Niles Bowser M.D. Measurements Intervals [place] Rate: 93 P: 79 MA: 175 QRS: 77 QRSD: 98 T: 82 QT: 334 QTc: 416 Interpretive Statements SINUS RHYTHM MINIMAL ST ELEVATION IN THE INFERIOR LEADS, OLD LOW QRS VOLTAGE IN PRECORDIAL LEADS [QRS DEFLECTION < 1.0 mV IN CHEST LEADS] Compared to ECG 10/18/2023 12:57:41 NO SIGNIFICANT CHANGE Electronically Signed On 01-01-2025 21:30:23 CDT by Niles Bowser M.D. [email or web address]
--- NOTE | 2024-12-30 15:37 | XRR_ITS ---
PROCEDURE INFORMATION: Exam: XR Chest Exam date and time: 12/30/2024 5:28 PM Age: 79 years old Clinical indication: Dyspnea; Additional info: Dyspnea/cough TECHNIQUE: Imaging protocol: Radiologic exam of the chest. Views: 1 view. COMPARISON: CR XR chest 1V portable [id number] 10/18/2023 12:21 PM FINDINGS: Lungs: Probable mild hyperinflation, can not exclude COPD. A few scattered nonspecific although chronic appearing pulmonary strands. Curvilinear opacity at the upper lateral aspect of the left lung, doubtful for true pneumothorax given pulmonary markings peripheral to this; nevertheless clinical correlation recommended. Pleural spaces: Unremarkable. No pleural effusion. No pneumothorax. Heart/Mediastinum: Unremarkable. No cardiomegaly. Vasculature: Aortic atherosclerosis. Bones/joints: Unremarkable. XR/XR chest 1V portable [id number] IMPRESSION: No definite acute findings. Curvilinear opacity at the upper lateral aspect of the left lung, doubtful for true pneumothorax given pulmonary markings peripheral to this; nevertheless clinical correlation recommended.
--- OUTSIDE RECORDS SUMMARY | 2024-12-30 16:30 | XMS_ITS | Encounter Summary ---
Author Organization [facility] Address 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
--- OUTSIDE RECORDS SUMMARY | 2024-12-30 16:30 | XMS_ITS | Clinical Summary ---
Author Organization [employer] Address [address] [facility] Attn: Epic Prelude ADT [facility] [id number] Care Team Providers Care Client Development Director Name Role Phone Unavailable Primary Care Provider Unavailabl e Allergies Active Allergy Reactions Criticality Noted Date Comments Azithromycin Hives High 08/06/2018 Crab Rash Low 11/01/2017 Levofloxacin Anaphylaxis High 08/07/2018 Lobster Rash Low 11/01/2017 Shrimp Itching Low 08/18/2009 Medications [id number]- fish oil (Fish OiL) 1,000 mg Capsule Take 1 Capsule by mouth daily. 10/26/19 22 Active gabapentin (NEURONTIN) 100 mg capsule Take 100 mg by mouth 3 times daily. 07/12/19 25 Active HYDROcodone-acet aminophen (NORCO) 10-325 mg Tablet Take by mouth. 08/07/19 25 Active ipratropium bromide (ATROVENT) 0.02 % Solution Take 0.5 mg by inhalation see administration instructions. 07/11/19 25 Active levalbuterol (XOPENEX) 0.63 mg/3 mL Solution for Nebulization Take 0.63 mg by inhalation see administration instructions. 07/20/19 25 Active ondansetron (ZOFRAN ODT) 4 mg Tablet, Rapid Dissolve Place 4 mg under tongue. 11/03/19 24 Active oxyBUTYnin (DITROPAN XL) 5 mg Extended Release 24 hour tablet Take 5 mg by mouth daily. 07/06/19 25 Active tamsulosin (FLOMAX) 0.4 mg capsule Take 0.8 mg by mouth daily. 09/26/19 24 Active Breztri Aerosphere 160 mcg-9mcg-4.8mcg/ actuation HFA aerosol inhaler Take 2 Puffs by inhalation 2 times daily. Active albuterol sulfate HFA 90 mcg/actuation aerosol inhaler Take 2 Puffs by inhalation every 4 hours as needed for Shortness of Breath. Active OTHER Mushroom pills 2 tabs daily [place] 2 tabs daily Cortiseps miltaris 2 tabs daily 5 defenders 2 tabs daily Active lisinopriL (PRINIVIL) 40 mg tablet Take 40 mg by mouth daily. Active Cholecalciferol, Vitamin D3, 50 mcg (2,000 unit) Capsule Take 2,000 Units by mouth daily. Active carBAMazepine (TEGretol) 200 mg tablet Take 200 mg by mouth 2 times daily. 3 tabs Active atorvastatin (LIPITOR) 40 mg tablet Take 40 mg by mouth daily at bedtime. Active Encounters Date Type Department Care Team Description 12/24/2024 External Device Data [facility] Provider, Abstract 12/03/2024 External Device Data [facility] Provider, Abstract 12/03/2024 External Device Data [facility] Provider, Abstract 11/19/2024 External Device Data [facility] Provider, Abstract 11/05/2024 External Device Data [facility] Provider, Abstract 11/05/2024 External Device Data [facility] Provider, Abstract 10/02/2024 External Device Data [facility] Provider, Abstract 10/02/2024 External Device Data [facility] Provider, Abstract 10/02/2024 External Device Data [facility] Provider, Abstract 10/01/2024 External Device Data [facility] Provider, Abstract from Last 3 Months Social History Tobacco Use Types Packs/Day Years Used Date Smoking Tobacco: Former Cigarettes Q uit: 05/20/2002 Tobacco Cessation:Counseling Given: No Sex and Gender Information Value Date Recorded Sex Assigned at Not on file Legal Sex Male 4:26 AM [employer] Gender Identity Not on file Sexual Orientation Not on file Last Filed Vital Signs Vital Sign Reading Time Taken Comments Blood Pressure 101/66 08/20/2024 1:08 PM CDT Pulse 108 08/20/2024 1:08 PM CDT Temperature 36.6 C (97.9 F) 08/20/2024 1:08 PM CDT Respiratory Rate 18 08/20/2024 1:08 PM CDT Oxygen Saturation 97% 08/20/2024 1:0 8 PM CDT 2.5L NC continuous Inhaled Oxygen Concentration - - Weight 72.6 kg (160 lb) 08/20/2024 1:08 PM CDT Height 177.8 cm (5' 10 ) 08/20/2024 1:0 8 PM CDT Body Mass Index 22.96 08/20/2024 1:08 PM CDT Plan of Treatment Health Maintenance Due Date Last Done Comments PNEUMOCOCCAL VACCINE 50+ YEA RS (2 of 2 - PPSV23, PCV20, or PCV21) 01/08/2015 11/13/2014, 08/18/2010 RSV VACCINE (60+ or ) (1 - 1-dose 75+ series) 2019 INFLUENZA VACCINE (#1) 2024 , 02/10/2021, 12/20/2018, Additional history exists COVID-19 Vaccine ( - 2024-2 6 season) 2024 02/16/2023, 02/10/2021, 06/24/2020, Additional history exists DTAP/TDAP/TD VACCINES (3 - T d or Tdap) 09/25/2033 09/26/2023, 11/05/2013 ZOSTER VACCINE Completed 03/15/2018, 01/09/2018 Insurance MEDICARE PART A AND B * Guarantor: OLD 2020 [facility] ADMIN [facility] THRU I (C) Account Type Relation to Patient Date of Phone Billing Address Corporate Employer DEFAULT ADDRESS [address] [employer] * Guarantor: [facility] (C) Account Type Relation to Patient Date of Phone Billing Address Corporate Other DEFAULT ADDRESS [address] [employer] [facility] [id number] * Guarantor: [facility] (C) Account Type Relation to Patient Date of Phone Billing Address [facility] Other DEFAULT ADDRESS [address] [employer] Member Subscriber Plan / Payer (Ef fective 2020-Present) Name:Gamal Forrester Relation to Subscriber:Self Name:Gamal Forrester Payer ID:Not on file Group ID:Not on file Type:[place] Address: [place] [id number]
--- NOTE | 2024-12-30 16:39 | W.ED.SYNCOPE ---
HPI - Syncope General: Chief Complaint: Syncope Stated Complaint: passed out History of Present Illness: 79-year-old man with a history of COPD, chronic hypoxemic respiratory failure on 3 to 6 L nasal cannula at all times, chronic pain syndrome on chronic opioid therapy, history of stroke, BPH, bipolar disorder, hyperlipidemia, hypertension and sleep apnea who presents to the emergency room by ambulance after having a syncopal episode. He says he had been constipated and he took medication for this and drank some coffee and while he was trying to have a bowel movement passed out. Apparently he did have a large bowel movement at that time. He says now he just hurts all over and feels weak and tired. No focal deficits. He is alert. He is not requiring more oxygen than baseline. No chest pain. Related Data Home Medications ?Medication ?Instructions ?Recorded ?Confirmed omega 4-dfw-rgm-fish oil 1,000 mg 1 cap PO BID 08/19/19 10/18/23 (120 mg-180 mg) capsule (Fish Oil) atorvastatin 40 mg tablet 40 mg PO QPM 09/15/20 10/18/23 carbamazepine 200 mg tablet 600 mg PO BID 09/15/20 10/18/23 multivitamin 1 tab PO DAILY 09/23/20 10/18/23 cetirizine 10 mg tablet 10 mg PO DAILY Allergy Symptoms 11/03/20 10/18/23 hydrocodone 10 mg-acetaminophen 1 - 2 tab PO .Q4-6H PRN Pain 11/03/20 10/18/23 325 mg tablet oxybutynin chloride 5 mg tablet 5 mg PO DAILY 11/03/20 10/18/23 vitamin E (dl, acetate) 180 mg 180 mg PO DAILY 11/03/20 10/18/23 (400 unit) capsule ipratropium 0.5 mg-albuterol 3 mg 3 ml inhalation Q4H PRN COPD 05/08/23 10/18/23 (2.5 mg base)/3 mL nebulization soln artificial tears(hypromellose) 0.3 1 drp ophthalmic (eye) Q4H PRN Dry 08/05/23 10/18/23 % eye drops Eye(S) tamsulosin 0.4 mg capsule 0.4 mg PO QPM 08/05/23 10/18/23 albuterol sulfate 90 mcg/actuation 2 inh inhalation Q8H PRN BREATHING 10/18/23 10/18/23 aerosol inhaler aspirin 81 mg tablet,delayed 81 mg PO DAILY 10/18/23 10/18/23 release carbamide peroxide 6.5 % ear drops 4 drp otic (ear) .Q30D 10/18/23 10/18/23 (Debrox) cholecalciferol (vitamin D3) 50 50 mcg PO DAILY 10/18/23 10/18/23 mcg (2,000 unit) tablet (Vitamin D3) phenylephrine-shark liver 1 applic RI BID PRN RECTAL SORENESS 10/18/23 10/18/23 oil-mineral oil-petrolatum rectal ointment (Hemorrhoidal ointment) Previous Rx's ?Medication ?Instructions ?Recorded budesonide 160 mcg-glycopyr 9 2 inh inhalation BID 30 days #10.7 12/28/22 mcg-formot 4.8 mcg/actuation HFA grams inhaler (Breztri Aerosphere) clopidogrel 75 mg tablet 75 mg PO DAILY #90 tabs 10/19/23 lisinopril 5 mg tablet 5 mg PO DAILY #90 tabs 10/19/23 Allergies Allergy/AdvReac Type Severity Reaction Status Date / Time levofloxacin (From Levaquin) Allergy Severe Unknown Verified 05/08/23 15:48 azithromycin Allergy Intermediate rash Verified 05/08/23 15:48 shrimp Allergy Intermediate rash Verified 05/08/23 15:48 seafood Allergy ALGY-Rash Uncoded 05/08/23 15:48 Review of Systems Narrative: Constitutional symptoms: Negative except as documented in HPI. Skin symptoms: Negative except as documented in HPI. Eye symptoms: Negative except as documented in HPI. ENMT symptoms: Negative except as documented in HPI. Respiratory symptoms: Negative except as documented in HPI. Cardiovascular symptoms: Negative except as documented in HPI. Gastrointestinal symptoms: Negative except as documented in HPI. Genitourinary symptoms: Negative except as documented in HPI. Musculoskeletal symptoms: Negative except as documented in HPI. Neurologic symptoms: Negative except as documented in HPI. Psychiatric symptoms: Negative except as documented in HPI. Endocrine symptoms: Negative except as documented in HPI. PFSH ED PFSH: Medical History (Updated 12/30/24 @ 17:54 by Anahi Xiong MD) CVA (cerebrovascular accident) BPH (benign prostatic hyperplasia) Opiate use Chronic obstructive pulmonary disease Dependence on supplemental oxygen Erectile dysfunction Bipolar 1 disorder Hyperlipidemia ARPIT (obstructive sleep apnea) HTN (hypertension) Surgical History Hx of appendectomy Family History Mother , AT AGE 64 Cancer Diabetes Grandfather Diabetes Father , AT AGE 94 Lung disease Social History Smoking and tobacco/nicotine status: former use of tobacco/nicotine (2002) Quit status (tobacco/nicotine): has quit using Year quit tobacco: 2002 Former quit date comment: Hx of 2 PPD x 50 Years Alcohol intake: former Substance/Drug Use: never Lives independently: Yes Marital status: / service: Yes Current occupational status: retired Do you think of yourself as: Straight/Heterosexual Course Vital Signs: Vital signs: Vital Signs Temperature 97.4 F L 12/30/24 16:26 Pulse Rate 94 12/30/24 17:04 Respiratory Rate 16 12/30/24 17:04 Blood Pressure 137/112 12/30/24 16:26 Pulse Oximetry 98 12/30/24 17:04 Oxygen Delivery Me thod Nasal Cannula 12/30/24 16:26 Oxygen Flow Rate 3 12/30/24 16:26 MDM - Syncope Medical Decision Making Medical decision making: Differential diagnosis including but not limited to and based on the above HPI, review of systems and physical exam in this patient with syncope: Vasovagal, orthostatics hypotension, cardiac dysrhythmia, myocardial infarction, infection and hypotension, Orders placed to evaluate differential diagnosis based on the above differential, HPI and physical exam EKG: Time 1653. Rate 93. Normal sinus rhythm, No ST-T changes, no ectopy, normal RI & QRS intervals, This was reviewed and interpreted by myself the ER physician at 1659 EKG: Time 1732. Rate 99. Normal sinus rhythm, No ST-T changes, no ectopy, normal RI & QRS intervals, This was reviewed and interpreted by myself the ER physician at 1738. No significant changes from EKG done earlier today in the emergency room. Chest x-ray: No acute process. No infiltrate. No pneumothorax. Films were interpreted by myself the emergency room provider and pending final radiology review. Lab Review: Laboratory results were reviewed and interpreted by myself the emergency room physician. Mild leukocytosis with a white count of 13,000. No anemia. Sodium is acutely low at 127. This is new for him. Previous sodium is usually between 135 and 138. Initial troponin is mildly elevated at 35. This is likely secondary to acute renal insufficiency with a BUN/creatinine of 18 and 1.7. His creatinine is normally around 0.8. I reviewed the patient's medical record. 79-year-old man with a history of COPD, chronic hypoxemic respiratory failure on 3 to 6 L nasal cannula at all times, chronic pain syndrome on chronic opioid therapy, history of stroke, BPH, bipolar disorder, hyperlipidemia, hypertension and sleep apnea Reexamination: Patient remained stable. No increased work of breathing. No altered mental status. No focal motor deficits. Currently stable on 3 L nasal cannula which is baseline for him at home. Consultation: I spoke with Dr. Hoffmann who is on-call for the hospitalist service who agrees to admission. Assessment and plan: Hyponatremia Syncope Acute renal insufficiency ?Normal saline bolus in the emergency room -I discussed the patient with the hospitalist on-call who is admitting the patient. - Discussed findings and plan with patient. Answered any questions. - All laboratory values were reviewed and interpreted personally by myself, the ER physician - All imaging was reviewed and interpreted personally by myself, the ER physician. - Evaluation and treatment of this problem were appropriate in the emergency setting Lab Data 12/30/24 16:42 12/30/24 16:42 Laboratory Results WBC 13.71 10^3/uL (3.29-11.43) H 12/30/24 16:42 RBC 4.27 10^6/uL (3.85-5.65) 12/30/24 16:42 Hgb 14.00 g/dL (11.27-16.99) 12/30/24 16:42 Hct 39.4 % (37-53) 12/30/24 16:42 MCV 92.3 fl (82-101) 12/30/24 16:42 MCH 32.8 pg (27-33) 12/30/24 16:42 MCHC 35.5 g/dL (30-55) 12/30/24 16:42 RDW 12.2 % (12.1-15.1) 12/30/24 16:42 Plt Count 225 10^3/cmm (157-399) 12/30/24 16:42 MPV 8.3 fL (7.4-10.4) 12/30/24 16:42 Neut % (Auto) 91.4 % 12/30/24 16:42 Lymph % (Auto) 6.3 % 12/30/24 16:42 [place] % (Auto) 1.3 % 12/30/24 16:42 Eos % (Auto) 0.2 % 12/30/24 16:42 Baso % (Auto) 0.1 % 12/30/24 16:42 Neut # (Auto) 12.52 10^3/uL (1.8-7.7) H 12/30/24 16:42 Lymph # (Auto) 0.9 10^3/uL (0.8-4.8) 12/30/24 16:42 [place] # (Auto) 0.2 10^3/uL (0.2-0.9) 12/30/24 16:42 Eos # (Auto) 0.0 10^3/uL (0.0-0.8) 12/30/24 16:42 Baso # (Auto) 0.0 10^3/uL (0.0-0.1) 12/30/24 16:42 Nucleated RBC % (auto) 0 % 12/30/24 16:42 Nucleated RBCs # 0.0 /100WBC 12/30/24 16:42 Sodium 127 mmol/L (136-145) L 12/30/24 16:42 Potassium 4.9 mmol/L (3.5-5.1) 12/30/24 16:42 Chloride 90 mmol/L (98-107) L 12/30/24 16:42 Carbon Dioxide 24 mmol/L (22-29) 12/30/24 16:42 Anion Gap 17.9 (5-19) 12/30/24 16:42 BUN 18 mg/dL (8-23) 12/30/24 16:42 Creatinine 1.7 mg/dL (0.7-1.2) H 12/30/24 16:42 GFR Calculation Not Reportable 12/30/24 16:42 Glucose 208 mg/dL (65-115) H 12/30/24 16:42 Calculated Osmolality 272 mOsm/kg (285-295) L 12/30/24 16:42 Lactic Acid 2.5 mmol/L (0.5-2.2) H 12/30/24 16:42 Calcium 8.6 mg/dL (8.5-10.5) 12/30/24 16:42 Total Bilirubin 0.3 mg/dL (0.15-1.2) 12/30/24 16:42 AST 23 U/L (0-40) 12/30/24 16:42 ALT 22 U/L (0-41) 12/30/24 16:42 Alkaline Phosphatase 128 U/L (40-130) 12/30/24 16:42 Troponin T Baseline 35 ng/L (0-15) H 12/30/24 16:42 Total Protein 6.4 g/dL (6.6-8.7) L 12/30/24 16:42 Albumin 4.1 g/dL (3.5-5.2) 12/30/24 16:42 Globulin 2.3 g/dL (1.3-4.6) 12/30/24 16:42 XR interpretation done by ED provider, pending radiology final review Discharge Plan Discharge Patient Disposition: Admitted As Inpatient Clinical Impression: Hyponatremia, Acute renal insufficiency, Syncope, Chronic hypoxemic respiratory failure, Chronic obstructive pulmonary disease Condition: Stable Coding Level of Care Code ED Forestry Biology Specialist for Chencho Josue
[2024-12-30 16:58] LABS: Hematocrit 39.4 % (37-53); Hemoglobin 14.00 g/dL (11.27-16.99); Mean Corpuscular HGB Conc 35.5 g/dL (30-55); Mean Corpuscular Hemoglobin 32.8 pg (27-33); Mean Corpuscular Volume 92.3 fl (82-101); Nucleated Red Blood Cells % 0 %; Platelet Count 225 10^3/cmm (157-399); Red Blood Count 4.27 10^6/uL (3.85-5.65); White Blood Count 13.71 10^3/uL (3.29-11.43)
[2024-12-30 17:20] LABS: Alanine Aminotransferase 22 U/L (0-41); Albumin Level 4.1 g/dL (3.5-5.2); Alkaline Phosphatase 128 U/L (40-130); Anion Gap 17.9 (5-19); Aspartate Amino Transferase 23 U/L (0-40); Blood Urea Nitrogen 18 mg/dL (8-23); Calcium 8.6 mg/dL (8.5-10.5); Carbon Dioxide 24 mmol/L (22-29); Chloride 90 mmol/L (98-107); Creatinine Clr Calc Pharmacy 35.4880; Globulin 2.3 g/dL (1.3-4.6); Glucose 208 mg/dL (65-115); Osmolality Calculated 272 mOsm/kg (285-295); Potassium 4.9 mmol/L (3.5-5.1); Sodium 127 mmol/L (136-145); Total Protein 6.4 g/dL (6.6-8.7)
--- NOTE | 2024-12-30 17:35 | PM.HP ---
Providers/Chief Complaint Primary Care Provider: Willow Plasencia MD Chief Complaint: passed out History of Present Illness Gamal Forrester is a 79 year old male with past medical history of hyperlipidemia, hypertension, obstructive sleep apnea, COPD, bipolar disorder was brought to the ER today via EMS with concern for syncope. Patient is a poor historian. Most of the history gathered through chart review, conversation through ER physician and patient. As per patient he came to the hospital because he is significantly constipated since today morning. His oral intake of liquid has been poor since today morning and is complaining of left lower quadrant abdominal pain which is crampy in nature nonradiating. As per the ER physician patient was bearing down to have a bowel movement and he passed out and regained consciousness in few minutes after that. Event was not associated with weakness, drowsiness, seizure-like activity. Review of Systems General: Reports: 10 or more systems reviewed and unremarkable except in HPI and below Const: Denies: fever(s), chills, body aches, change in appetite, change in weight, malaise, night sweats, diaphoresis, change in sleep pattern, daytime sleepiness or snoring Eyes: Denies: change in vision, blurry vision, photophobia, eye discomfort or eye discharge ENMT: Denies: throat pain, enlarged tonsils, hoarseness, mouth pain, oral sores, dry mouth, tinnitus, nasal congestion or post nasal drip Card: Denies: chest pain, palpitations, irregular heart rhythm, edema, swelling of feet/ankles, lightheadedness, syncope, pre-syncope, dyspnea on exertion, orthopnea, leg pain with exertion or acrocyanosis Resp: Denies: dyspnea, productive cough, non-productive cough, wheezing, stridor, pain on inspiration, change in phlegm color, hemoptysis or chest congestion GI: Denies: abdominal pain, nausea, vomiting, hematemesis, coffee ground emesis, dysphagia, heartburn, diarrhea, constipation, bloating, GI cramping, change in bowel habits, pain on defecation, hematochezia or melena : Denies: flank pain, difficulty urinating, dysuria, urinary frequency, urinary urgency, urinary hesitancy, urinary dribbling, difficulty starting urination, change in urine stream, nocturia or hematuria Musc: Denies: neck pain, back pain, extremity pain, joint pain, joint swelling, joint redness, joint stiffness or limited range of motion Neuro: Denies: headache(s), numbness in extremities, weakness in extremities, sensory changes, lack of coordination, difficulty walking, frequent falls, dizziness, vertigo, confusion, Slurred speech present, difficulty communicating thoughts or seizure-like activity Psych: Denies: anxiety, depression, mood swings, panic attacks, hopelessness or irritability Endo: Denies: polyuria, polydipsia, tired all the time, cold intolerance, excessive sweating, flushing or heat intolerance Philipp/Lymph: Denies: easy bruising or easy bleeding All/Imm: Denies: tongue swelling, facial swelling or acute wheezing Medications/Allergies Home Medications ?Medication ?Instructions ?Recorded ?Confirmed ?Last Taken ?Type omega 7-tlc-uum-fish oil 1,000 mg 1 cap PO BID 08/19/19 12/31/24 12/30/24 History (120 mg-180 mg) capsule (Fish Oil) atorvastatin 40 mg tablet 40 mg PO QPM 09/15/20 12/31/24 12/29/24 History carbamazepine 200 mg tablet 600 mg PO BID 09/15/20 12/31/24 12/30/24 History multivitamin 1 tab PO DAILY 09/23/20 12/31/24 12/30/24 History cetirizine 10 mg tablet 10 mg PO DAILY Allergy Symptoms 11/03/20 12/31/24 12/30/24 History hydrocodone 10 mg-acetaminophen 1 - 2 tab PO .Q4-6H PRN Pain 11/03/20 12/31/24 Unknown History 325 mg tablet oxybutynin chloride 5 mg tablet 5 mg PO DAILY 11/03/20 12/31/24 12/30/24 History vitamin E (dl, acetate) 180 mg 180 mg PO DAILY 11/03/20 12/31/24 12/30/24 History (400 unit) capsule budesonide 160 mcg-glycopyr 9 2 inh inhalation BID 30 days #10.7 12/28/22 12/31/24 12/30/24 Rx mcg-formot 4.8 mcg/actuation HFA grams inhaler (Breztri Aerosphere) ipratropium 0.5 mg-albuterol 3 mg 3 ml inhalation Q4H PRN COPD 05/08/23 12/31/24 Unknown History (2.5 mg base)/3 mL nebulization soln artificial tears(hypromellose) 0.3 1 drp ophthalmic (eye) Q4H PRN Dry 08/05/23 12/31/24 Unknown History % eye drops Eye(S) tamsulosin 0.4 mg capsule 0.4 mg PO QPM 08/05/23 12/31/24 12/29/24 History albuterol sulfate 90 mcg/actuation 2 inh inhalation Q8H PRN BREATHING 10/18/23 12/31/24 Unknown History aerosol inhaler aspirin 81 mg tablet,delayed 81 mg PO DAILY 10/18/23 12/31/24 12/30/24 History release carbamide peroxide 6.5 % ear drops 4 drp otic (ear) .Q30D 10/18/23 12/31/24 Unknown History (Debrox) cholecalciferol (vitamin D3) 50 50 mcg PO DAILY 10/18/23 12/31/24 12/30/24 History mcg (2,000 unit) tablet (Vitamin D3) phenylephrine-shark liver 1 applic OK BID PRN RECTAL SORENESS 10/18/23 12/31/24 Unknown History oil-mineral oil-petrolatum rectal ointment (Hemorrhoidal ointment) clopidogrel 75 mg tablet 75 mg PO DAILY #90 tabs 10/19/23 12/31/24 Unknown Rx albuterol sulfate 2.5 mg/3 mL 2.5 mg inhalation Q6H PRN copd 12/31/24 12/31/24 Unknown History (0.083 %) solution for nebulization camphor-methyl salicylate-menthol 1 patch topical Q8H PRN Pain 12/31/24 12/31/24 Unknown History topical patch cholecalciferol (vitamin D3) 50 100 mcg PO DAILY 12/31/24 12/31/24 12/30/24 History mcg (2,000 unit) tablet (Vitamin D3) diclofenac sodium 1 % topical gel See Rx Instructions .Route 12/31/24 12/31/24 Unknown History .COMPLEX PRN Pain gabapentin 100 mg capsule 100 mg PO TID 12/31/24 12/31/24 12/30/24 History levalbuterol HCl 0.63 mg/3 mL 0.63 mg inhalation QID PRN copd 12/31/24 12/31/24 Unknown History solution for nebulization lidocaine 5 % topical patch 3 patch topical DAILY 12/31/24 12/31/24 Unknown History lisinopril 40 mg tablet 20 mg PO DAILY 12/31/24 12/31/24 12/30/24 History naloxone 4 mg/actuation nasal See Rx Instructions .Route 12/31/24 12/31/24 Unknown History spray (Narcan) .COMPLEX PRN overdose valacyclovir 1 gram tablet 1,000 mg PO TID 12/31/24 12/31/24 12/30/24 History Allergies Allergy/AdvReac Type Severity Reaction Status Date / Time levofloxacin (From Levaquin) Allergy Severe Unknown Verified 05/08/23 15:48 azithromycin Allergy Intermediate rash Verified 05/08/23 15:48 shrimp Allergy Intermediate rash Verified 05/08/23 15:48 seafood Allergy ALGY-Rash Uncoded 05/08/23 15:48 PFSH Acute PFSH: Medical History (Updated 12/30/24 @ 17:54 by Anahi Xiong MD) CVA (cerebrovascular accident) BPH (benign prostatic hyperplasia) Opiate use Chronic obstructive pulmonary disease Dependence on supplemental oxygen Erectile dysfunction Bipolar 1 disorder Hyperlipidemia ARPIT (obstructive sleep apnea) HTN (hypertension) Surgical History Hx of appendectomy Family History Mother , AT AGE 64 Cancer Diabetes Grandfather Diabetes Father , AT AGE 94 Lung disease Social History Smoking and tobacco/nicotine status: former use of tobacco/nicotine (2002) Quit status (tobacco/nicotine): has quit using Year quit tobacco: 2002 Former quit date comment: Hx of 2 PPD x 50 Years Alcohol intake: former Substance/Drug Use: never Lives independently: Yes Marital status: / service: Yes Current occupational status: retired Do you think of yourself as: Straight/Heterosexual Vitals/I&O/Wt Last Vital Signs Temp 97.4 F L 12/30/24 16:26 Pulse 94 12/30/24 17:04 Resp 16 12/30/24 17:04 BP 137/112 10/13/25 16:26 Pulse Ox 98 12/30/24 17:04 O2 Del Method Nasal Cannula 12/30/24 16:26 O2 Flow Rate 3 12/30/24 16:26 Weight last 48 hrs Weight 68.039 kg Physical Exam Narrative: General: No acute distress, AO x3 HEENT: PERRLA, pupils bilaterally equal and reactive Chest: Normal vesicular breath sounds, no added sounds, equal good air entry bilaterally CVS: S1-S2 regular, no murmurs, no tachycardia, no gallops, no rubs Abdomen: Soft, nontender, no organomegaly, bowel sounds present Neuro: No focal deficits, no facial deformity, AO x3, power 5/5 in all limbs Data 12/31/24 05:20 12/31/24 05:20 A&P Assessment and plan 1. Syncope: Most likely Vasovagal. Gives h/o syncope while bearing down for BM Check Ortho static Tele PT Fall precautions 2. Dehydration: Due to poor oral intake NS at 75 cc/hr. Watch for fluid overload 3. Hyponatremia: Due to poor oral intake. Fluid as above Repeat bmp at 8 pm. Watch for overcorrection. Target correction 8-10 meq in next 24 hrs 4. Acute kidney injury: Due to above CT abdomen to r/o obstructive uropathy Monitor I/o Med rec completed for nephrotoxic meds. Check urinanalysis, Urine lytes and creat 5. Constipation: Ct abdomen as above Agressive bowel regimen 6. Opiate use: Continue home regimen. Will conform with pharmacy in AM real dose he is suppose to be on. FOr now [place] 10 mg Q6h Prn 7. Generalized weakness: As above. Infectious cause less likely. Check CPK, TIBC, B12. FLuid as above Check UA , Tergatoral levels 8. Chronic obstructive pulmonary disease: NO exacerbation. Chronicallyon 2-3 L. Keep saturation over 88% 9. HTN (hypertension): Goal BP less than 140/90 mmhg. Hold lisinopril. Will add amlodipine if needed 10. BPH (benign prostatic hyperplasia): 11. Bipolar 1 disorder: 12. History of CVA (cerebrovascular accident): Plan: [facility] No CPR. Limited status Regular diet Protonix for PUD PPx Heparin for DVT PPX PDMP PDMP Reviewed: Not Reviewed Attestations Medical Necessity Statement*: More than 2 MN for dehydration, Hyponatremia, PEDRITO leading to weakness, constipation and Syncope Diagnoses Syncope R55 Dehydration E86.0 Hyponatremia E87.1 Acute kidney injury N17.9 Constipation K59.00 Opiate use F11.90 Generalized weakness R53.1 Chronic obstructive pulmonary disease J44.9 HTN (hypertension) I10 BPH (benign prostatic hyperplasia) N40.0 Bipolar 1 disorder F31.9 History of CVA (cerebrovascular accident) Z86.73
--- NOTE | 2024-12-30 17:37 | ECG_ITS ---
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 Measurements Intervals [place] Rate: 99 P: 80 DC: 172 QRS: 79 QRSD: 102 T: 81 QT: 328 QTc: 422 Interpretive Statements SINUS RHYTHM MINIMAL ST ELEVATION IN THE INFERIOR LEADS, OLD LOW QRS VOLTAGE IN PRECORDIAL LEADS [QRS DEFLECTION < 1.0 mV IN CHEST LEADS] Compared to ECG 12/30/2024 16:53:05 No significant changes Electronically Signed On 01-01-2025 23:05:58 CDT by Niles Bowser M.D. [email or web address] [id number]
--- NOTE | 2024-12-30 17:45 | CTR_ITS ---
PROCEDURE INFORMATION: Exam: CT Abdomen And Pelvis Without Contrast Exam date and time: 12/30/2024 6:00 PM Age: 79 years old Clinical indication: Abdominal pain; Generalized; Additional info: Abd pain, constipation TECHNIQUE: Imaging protocol: Computed tomography of the abdomen and pelvis without contrast. Radiation optimization: All CT scans at this facility use at least one of these dose optimization techniques: automated exposure control; mA and/or kV adjustment per patient size (includes targeted exams where dose is matched to clinical indication); or iterative reconstruction. COMPARISON: CT angio chest PE protcl [id number] 08/05/2023 2:08 PM RADIATION DOSE METRICS: Total DLP (mGy-cm): 434.61 FINDINGS: Liver: Normal. No mass. Gallbladder and biliary ducts: Normal. No calcified stones. No ductal dilation. Pancreas: Normal. No ductal dilation. Spleen: Normal. No splenomegaly. Adrenal glands: Normal. No mass. Kidneys and ureters: Nonspecific although commonly benign renal cysts. Stomach and bowel: Query mild sigmoid colitis, commonly infectious though nonspecific with other etiologies not excluded. Fluid attenuation luminal material within several loops of small bowel, may be related to ingested material although can not exclude mild enteritis or diarrhea related process. Appendix: No evidence of appendicitis. Intraperitoneal space: Unremarkable. No free air. No significant fluid collection. Vasculature: Aortic and coronary atherosclerosis. Lymph nodes: Unremarkable. No enlarged lymph nodes. Urinary bladder: Unremarkable as visualized. Reproductive: Unremarkable as visualized. Bones/joints: Moderate degenerative changes of lumbar vertebrae with multilevel endplate spurring and disc space narrowing. Soft tissues: fat containing umbilical hernia. CT/CT abdomen pelvis wo con [id number] IMPRESSION: Query mild sigmoid colitis, commonly infectious though nonspecific with other etiologies not excluded. COMMENTS: Consistent with the [employer]'s Incidental Findings Committee white paper (J Am [place] Radiol 2018): Any incidental renal lesion less than 1 cm or classified as too small to characterize, or any incidental cystic renal lesion characterized as simple-appearing, is likely benign. No follow-up imaging is recommended for these lesions per consensus recommendations based on imaging criteria.
[2024-12-30 17:47] LABS: Troponin(5th) Baseline 35 ng/L (0-15)
[2024-12-30 17:49] LABS: Lactic Sepsis W/Reflex 2.5 mmol/L (0.5-2.2)
[2024-12-30 18:09] LABS: Procalcitonin 0.05 ng/mL (0-0.5); Thyroid Stimulating Hormone 1.31 uIU/mL (0.27-4.20)
[2024-12-30 18:20] LABS: Iron 113 ug/dL (59-158); Total Iron Binding Capacity 261 mcg/dl; Unsaturated Iron Binding 148 ug/dL (112-347)
[2024-12-30 18:35] LABS: Estmated Average Glucose 108; Hemoglobin A1C 5.4 % (4.0-6.0)
[2024-12-30 18:43] LABS: Reflex Lactate Order REFLEX LACTIC ORDERD
[2024-12-30 19:28] LABS: Lactic Acid level (Lactate) 2.2 mmol/L (0.5-2.2)
[2024-12-30 19:29] LABS: Troponin 5 2HR 27.72 ng/L (0-15)
[2024-12-30 19:31] LABS: Troponin 5 2HR Delta -7.28 ABS# (0-10)
[2024-12-30] MEDS: HYDROcodone-acetaminophen 10-325 mg Tablet 1 TAB PO (20:48)
[2024-12-30] MEDS: pantoprazole 40 mg SDV IVP (20:49)
[2024-12-30] MEDS: heparin 5,000 unit/mL INJ 1 mL 5000 UNIT SUBCUT (20:49)
[2024-12-30 21:04] LABS: Carbamazepine Tegretol 11.4 ug/mL (4.0-12.0)
--- NOTE | 2024-12-30 21:20 | PC.NURSE ---
pt states he is concerned getting pneumonia, this nurse provided pt with an incentive spirometer. Education was provided to pt on how to use, pt verbalized understanding.
--- NOTE | 2024-12-30 21:49 | ECG_ITS ---
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 Measurements Intervals [place] Rate: 103 P: 62 [place]: 164 QRS: 75 QRSD: 84 T: 77 QT: 297 QTc: 389 Interpretive Statements SINUS TACHYCARDIA LOW QRS VOLTAGE IN PRECORDIAL LEADS [QRS DEFLECTION < 1.0 mV IN CHEST LEADS] WARNING: DATA QUALITY MAY AFFECT INTERPRETATION Compared to ECG 12/30/2024 17:32:01 NO SIGNIFICANT CHANGE Electronically Signed On 01-01-2025 23:12:02 CDT by Niles Bowser M.D. [email or web address]
[2024-12-30 22:39] LABS: Troponin 5 6HR 29.86 ng/L (0-15)
[2024-12-30 22:41] LABS: Anion Gap 16.1 (5-19); Blood Urea Nitrogen 21 mg/dL (8-23); Calcium 8.3 mg/dL (8.5-10.5); Carbon Dioxide 24 mmol/L (22-29); Chloride 91 mmol/L (98-107); Creatinine Clr Calc Pharmacy 46.5236; Glucose 167 mg/dL (65-115); Osmolality Calculated 269 mOsm/kg (285-295); Potassium 5.1 mmol/L (3.5-5.1); Sodium 126 mmol/L (136-145)
[2024-12-30 22:50] LABS: Troponin 5 6HR Delta -5.14 ng/L (0-12)
[2024-12-31] VITALS (9 sets, daily range): BP systolic 92–173; BP diastolic 50–94; PULSE 68–97; RESP 16–19; TEMP 36.3–36.8; O2SAT 94–99
[2024-12-31 00:13] LABS: PCP Screen Urine Negative (Negative)
[2024-12-31 00:21] LABS: Potassium, Radom Urine 47 mmol/L; Urine Random Chloride 25 mmol/L; Urine Random Sodium 24 mmol/L
[2024-12-31 02:33] LABS: Vitamin B12 370 pg/mL (232-1245)
[2024-12-31] MEDS: HYDROcodone-acetaminophen 10-325 mg Tablet 1 TAB PO ×2 (04:17→15:33)
[2024-12-31 05:41] LABS: Hematocrit 35.1 % (37-53); Hemoglobin 12.40 g/dL (11.27-16.99); Mean Corpuscular HGB Conc 35.3 g/dL (30-55); Mean Corpuscular Hemoglobin 32.0 pg (27-33); Mean Corpuscular Volume 90.7 fl (82-101); Nucleated Red Blood Cells % 0 %; Platelet Count 195 10^3/cmm (157-399); Red Blood Count 3.87 10^6/uL (3.85-5.65); White Blood Count 10.32 10^3/uL (3.29-11.43)
[2024-12-31 06:08] LABS: Alanine Aminotransferase 53 U/L (0-41); Albumin Level 3.5 g/dL (3.5-5.2); Alkaline Phosphatase 90 U/L (40-130); Anion Gap 14.9 (5-19); Aspartate Amino Transferase 47 U/L (0-40); Blood Urea Nitrogen 17 mg/dL (8-23); Calcium 7.8 mg/dL (8.5-10.5); Carbon Dioxide 24 mmol/L (22-29); Chloride 96 mmol/L (98-107); Creatinine Clr Calc Pharmacy 50.4258; Globulin 2.1 g/dL (1.3-4.6); Glucose 117 mg/dL (65-115); Magnesium 2.1 mg/dL (1.7-2.3); Osmolality Calculated 273 mOsm/kg (285-295); Potassium 4.9 mmol/L (3.5-5.1); Sodium 130 mmol/L (136-145); Total Protein 5.6 g/dL (6.6-8.7)
[2024-12-31 06:09] LABS: Cholesterol 135 mg/dL (0-200); HDL Cholesterol 61 mg/dL (60-100); Triglycerides 76 mg/dL (0-150)
[2024-12-31 06:12] LABS: Procalcitonin 1.55 ng/mL (0-0.5)
[2024-12-31] MEDS: heparin 5,000 unit/mL INJ 1 mL 5000 UNIT SUBCUT ×2 (08:37→21:34)
--- NOTE | 2024-12-31 09:18 | PC.CHAP ---
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 [] Patient/Family/Request visit [] Outpatient visit [] Follow-up visit [] Physician referral [] Code/Alert [] Routine visit [] Staff referral [] Actively dying [] Patient sleeping [] Family support [] [] Out of room [] Palliative care [] [] Receiving care in room [] Pre-surgical visit [] Trauma [] Long length of stay [] ICU visit [] Other: Relational/Emotional Strength [] Patient feels connected with others/family/visitors/staff [] Distress [] Loneliness/isolation [] Abandonment Spirituality of Patient [] Person of Mary [] Attends Religion of their Mary [] Believes in Prayer [] Reads Bible or Islam materials [] There are Spiritual issues to be addressed Emergency Care Tech Interventions [] Prayer [] Active listening [] Non-anxious presence [] Spiritual/emotional support [] Crisis/trauma care [] Spiritual counseling [] Bereavement support [] Provided bereavement packet [] Provided Bible/devotional materials [] Provided toy/stuffed animal, coloring book to patient or family member [] Provided Communion [] Anointing/[place] [] Salvation [] Completed spiritual assessment [] Other: Impact on Illness or Injury [] Angry [] Fearful [] Anxious [] Often cries [] Exhaustion [] Unable to work [] Unable to attend shinto [] Unable to walk/stand [] Unable to read [] Unable to drive [] Unable to eat/drink [] Unable to sleep [] Unable to be with family [] Patient intubated [] Other: Summary Time spent with patient
--- NOTE | 2024-12-31 11:50 | P.PN_ITS ---
Subjective 2 Subjective: No acute events overnight. Today morning patient states she is feeling a lot better. States he had a good bowel movement today morning. Denies any nausea, vomiting, headache. Vitals/I&O/Wt Last Vital Signs Temp 97.6 F 12/31/24 11:35 Pulse 81 12/31/24 11:35 Resp 19 H 12/31/24 11:35 BP 157/74 12/31/24 11:35 Pulse Ox 96 12/31/24 11:35 O2 Del Method Nasal Cannula 12/31/24 11:35 O2 Flow Rate 3 12/31/24 08:09 12/30/24 12/31/24 12/31/24 22:59 06:59 14:59 Intake Total 1000 / 1000 993.75 / 993.75 Output Total 380 / 380 Balance 1000 / 1000 -380 / 620 993.75 / 993.75 Weight last 48 hrs Weight 68.583 kg Weight 68.492 kg Weight 68.039 kg Physical Exam 2 Narrative: General: No acute distress, AO x3 HEENT: PERRLA, pupils bilaterally equal and reactive Chest: Normal vesicular breath sounds, no added sounds, equal good air entry bilaterally CVS: S1-S2 regular, no murmurs, no tachycardia, no gallops, no rubs Abdomen: Soft, nontender, no organomegaly, bowel sounds present Neuro: No focal deficits, no facial deformity, AO x3, power 5/5 in all limbs Data 12/31/24 05:20 12/31/24 05:20 Micro: Microbiology 12/30/24 23:51 Bacterial Antigens - Final Urine Kidney A&P Assessment and plan 1. Syncope: Most likely Vasovagal. Gives h/o syncope while bearing down for BM Check Ortho static Tele PT Fall precautions 2. Dehydration: Due to poor oral intake NS at 75 cc/hr. Watch for fluid overload 3. Hyponatremia: Due to poor oral intake. Fluid as above Repeat bmp at 8 pm. Watch for overcorrection. Target correction 8-10 meq in next 24 hrs 4. Acute kidney injury: Due to above CT abdomen to r/o obstructive uropathy Monitor I/o Med rec completed for nephrotoxic meds. Check urinanalysis, Urine lytes and creat 5. Constipation: Ct abdomen as above Agressive bowel regimen 6. Opiate use: Continue home regimen. Will conform with pharmacy in AM real dose he is suppose to be on. FOr now [place] 10 mg Q6h Prn 7. Generalized weakness: As above. Infectious cause less likely. Check CPK, TIBC, B12. FLuid as above Check UA , Tergatoral levels 8. Chronic obstructive pulmonary disease: NO exacerbation. Chronicallyon 2-3 L. Keep saturation over 88% 9. Essential hypertension: Goal BP less than 140/90 mmhg. Hold lisinopril. Will add amlodipine if needed 10. BPH (benign prostatic hyperplasia): 11. Bipolar 1 disorder: 12. History of CVA (cerebrovascular accident): Plan: Code status: Ok with [facility]ch ventilation and Cardioversion(Shock). No CPR. Limited status Regular diet Protonix for PUD PPx Heparin for DVT PPX Plan for the day: Syncope on admission most likely vasovagal. Will recheck orthostatic blood pressures. Awaiting PT evaluation. Dehydration resolving. Hyponatremia resolving. Continue with current IV fluids. Monitor renal functions daily. Continue with aggressive bowel regimen. Elevated lactate has resolved. Blood pressures slightly elevated. Will continue to monitor. If remains elevated can add low-dose amlodipine. Discharge plan: Plan to discharge home in next 24 hours depending on physical therapy evaluation if orthostatic remain negative. Patient will need bowel regimen on discharge. PDMP PDMP Reviewed: Not Reviewed Attestations 2 Medical Necessity Statement*: Requires further hospitalization for management of syncope in setting of vasovagal episode, poor oral intake leading to dehydration, hyponatremia and PEDRITO Diagnoses Syncope R55 Dehydration E86.0 Hyponatremia E87.1 Acute kidney injury N17.9 Constipation K59.00 Opiate use F11.90 Generalized weakness R53.1 Chronic obstructive pulmonary disease J44.9 Essential hypertension I10 Hypertension type: essential hypertension BPH (benign prostatic hyperplasia) N40.0 Bipolar 1 disorder F31.9 History of CVA (cerebrovascular accident) Z86.73
[2024-12-31] MEDS: pantoprazole 40 mg SDV IVP (21:31)
[2025-01-01] VITALS: BP 132/76; PULSE 72; RESP 16; TEMP 36.9; O2SAT 94
[2025-01-01] MEDS: HYDROcodone-acetaminophen 10-325 mg Tablet 1 TAB PO (01:37)
[2025-01-01 04:00] VITALS: BP 118/70; PULSE 70; RESP 16; TEMP 36.8; O2SAT 97
--- NOTE | 2025-01-01 04:18 | PC.NURSE ---
Pt refused milk of magnesia this morning. Pt states he does not feel the need for it due to having BM already last night.
[2025-01-01 05:11] LABS: Hematocrit 36.7 % (37-53); Hemoglobin 12.50 g/dL (11.27-16.99); Mean Corpuscular HGB Conc 34.1 g/dL (30-55); Mean Corpuscular Hemoglobin 31.7 pg (27-33); Mean Corpuscular Volume 93.1 fl (82-101); Nucleated Red Blood Cells % 0 %; Platelet Count 179 10^3/cmm (157-399); Red Blood Count 3.94 10^6/uL (3.85-5.65); White Blood Count 7.20 10^3/uL (3.29-11.43)
[2025-01-01 05:33] LABS: Alanine Aminotransferase 46 U/L (0-41); Albumin Level 3.8 g/dL (3.5-5.2); Alkaline Phosphatase 87 U/L (40-130); Anion Gap 14.6 (5-19); Aspartate Amino Transferase 30 U/L (0-40); Blood Urea Nitrogen 12 mg/dL (8-23); Calcium 8.3 mg/dL (8.5-10.5); Carbon Dioxide 24 mmol/L (22-29); Chloride 98 mmol/L (98-107); Creatinine Clr Calc Pharmacy 67.2344; Globulin 2.5 g/dL (1.3-4.6); Glucose 102 mg/dL (65-115); Magnesium 2.3 mg/dL (1.7-2.3); Osmolality Calculated 274 mOsm/kg (285-295); Potassium 4.6 mmol/L (3.5-5.1); Sodium 132 mmol/L (136-145); Total Protein 6.3 g/dL (6.6-8.7)
[2025-01-01 07:24] VITALS: BP 138/68; PULSE 77; RESP 16; TEMP 36.6; O2SAT 99
[2025-01-01 08:00] VITALS: PULSE 72; O2SAT 96
[2025-01-01] MEDS: heparin 5,000 unit/mL INJ 1 mL 5000 UNIT SUBCUT (08:30)
--- NOTE | 2025-01-01 09:28 | PC.SOCIAL ---
IMM Update pg 2 of IMM Updated and reviewed w/ patient. Copy provided and copy dated, initialed and placed in chart.
--- NOTE | 2025-01-01 09:37 | P.DS_ITS ---
Discharge Providers Date of Admission: 12/30/24 17:41 Date of Discharge: January 01, 2025 Attending Provider at Admission: Thor Hoffamnn MD Attending Provider at Discharge: Thor Hoffmann MD Primary Care Provider: Willow Plasencia MD Diagnoses at Discharge Discharge Diagnosis 1. Syncope: 2. Dehydration: 3. Hyponatremia: 4. Acute kidney injury: 5. Constipation: 6. Opiate use: 7. Generalized weakness: 8. Essential hypertension: 9. BPH (benign prostatic hyperplasia): 10. Bipolar 1 disorder: 11. History of CVA (cerebrovascular accident): Reason for Visit Reason for Visit: passed out Hospital Course Hospital Course Gamal Forrester is a 79 year old male with past medical history of hyperlipidemia, hypertension, obstructive sleep apnea, COPD, bipolar disorder was brought to the ER today via EMS with concern for syncope. Patient is a poor historian. Most o f the history gathered through chart review, conversation through ER physician and patient. As per patient he came to the hospital because he is significantly constipated since today morning. His oral intake of liquid has been poor since today morning and is complaining of left lower quadrant abdominal pain which is crampy in nature nonradiating. As per the ER physician patient was bearing down to have a bowel movement and he passed out and regained consciousness in few minutes after that. Event was not associated with weakness, drowsiness, seizure-like activity. Syncope on admission was most likely vasovagal in setting of bearing down for bowel movement with constipation. He was started on aggressive bowel regimen, IV hydration for acute kidney injury and hyponatremia. CPK was normal. His renal functions and sodium levels improved with IV hydration. Patient responded well to the treatment. During hospitalization he did not have any further episodes of. Orthostatics were negative. Patient did not participate well with physical therapy. Possible safe discharge plan Giurgius is unclear with the patient and he declined SNF placement but was agreeable for home health which is being arranged. He has been discharged to hemodynamically stable condition on daily bowel regimen. Physical Exam Narrative: General: No acute distress, AO x3 HEENT: PERRLA, pupils bilaterally equal and reactive Chest: Normal vesicular breath sounds, no added sounds, equal good air entry bilaterally CVS: S1-S2 regular, no murmurs, no tachycardia, no gallops, no rubs Abdomen: Soft, nontender, no organomegaly, bowel sounds present Neuro: No focal deficits, no facial deformity, AO x3, power 5/5 in all limbs Discharge Data Studies Completed and Pending Completed Studies During Hospitalization Category Date Time Status CT abdomen pelvis wo con [id number] Stat Cat Scan 12/30/24 17:45 Completed XR chest 1V portable [id number] Stat Exams 12/30/24 15:37 Completed Pending at discharge Category Date Time Status Complete Blood Count w/Auto AM LABS Lab 01/02/25 04:00 Ordered Comprehensive Metabolic Panel AM LABS Lab 01/02/25 04:00 Ordered Magnesium AM LABS Lab 01/02/25 04:00 Ordered Phosphorus AM LABS Lab 01/02/25 04:00 Ordered Urinalysis Stat Lab 12/30/24 15:37 Uncollected Radiology Impressions Chest X-Ray 12/30/24 15:37 IMPRESSION: No definite acute findings. Curvilinear opacity at the upper lateral aspect of the left lung, doubtful for true pneumothorax given pulmonary markings peripheral to this; nevertheless clinical correlation recommended. Abdomen/Pelvis CT 12/30/24 17:45 IMPRESSION: Query mild sigmoid colitis, commonly infectious though nonspecific with other etiologies not excluded. COMMENTS: Consistent with the [employer]'s Incidental Findings Committee white paper (J [employer]iol 2018): Any incidental renal lesion less than 1 cm or classified as too small to characterize, or any incidental cystic renal lesion characterized as simple-appearing, is likely benign. No follow-up imaging is recommended for these lesions per consensus recommendations based on imaging criteria. Microbiology 12/30/24 23:51 Urine Kidney Bacterial Antigens - Final Laboratory Results WBC 7.20 10^3/uL (3.29-11.43) 01/01/25 04:44 RBC 3.94 10^6/uL (3.85-5.65) 01/01/25 04:44 Hgb 12.50 g/dL (11.27-16.99) 01/01/25 04:44 Hct 36.7 % (37-53) L 01/01/25 04:44 MCV 93.1 fl (82-101) 01/01/25 04:44 MCH 31.7 pg (27-33) 01/01/25 04:44 MCHC 34.1 g/dL (30-55) 01/01/25 04:44 RDW 12.4 % (12.1-15.1) 01/01/25 04:44 Plt Count 179 10^3/cmm (157-399) 01/01/25 04:44 MPV 8.6 fL (7.4-10.4) 01/01/25 04:44 Neut % (Auto) 76.9 % 01/01/25 04:44 Lymph % (Auto) 13.3 % 01/01/25 04:44 [place] % (Auto) 7.9 % 01/01/25 04:44 Eos % (Auto) 1.1 % 01/01/25 04:44 Baso % (Auto) 0.4 % 01/01/25 04:44 Neut # (Auto) 5.53 10^3/uL (1.8-7.7) 01/01/25 04:44 Lymph # (Auto) 1.0 10^3/uL (0.8-4.8) 01/01/25 04:44 [place] # (Auto) 0.6 10^3/uL (0.2-0.9) 01/01/25 04:44 Eos # (Auto) 0.1 10^3/uL (0.0-0.8) 01/01/25 04:44 Baso # (Auto) 0.0 10^3/uL (0.0-0.1) 01/01/25 04:44 Nucleated RBC % (auto) 0 % 01/01/25 04:44 Nucleated RBCs # 0.0 /100WBC 01/01/25 04:44 Sodium 132 mmol/L (136-145) L 01/01/25 04:44 Potassium 4.6 mmol/L (3.5-5.1) 01/01/25 04:44 Chloride 98 mmol/L (98-107) 01/01/25 04:44 Carbon Dioxide 24 mmol/L (22-29) 01/01/25 04:44 Anion Gap 14.6 (5-19) 01/01/25 04:44 BUN 12 mg/dL (8-23) 01/01/25 04:44 Creatinine 0.9 mg/dL (0.7-1.2) 01/01/25 04:44 GFR Calculation Not Reportable 01/01/25 04:44 Glucose 102 mg/dL (65-115) 01/01/25 04:44 Estimat Average Glucose 108 12/30/24 16:42 Hemoglobin A1c 5.4 % (4.0-6.0) 12/30/24 16:42 Calculated Osmolality 274 mOsm/kg (285-295) L 01/01/25 04:44 Lactic Acid 2.5 mmol/L (0.5-2.2) H 12/30/24 16:42 Lactic Acid (Sepsis) 2.2 mmol/L (0.5-2.2) 12/30/24 18:52 Calcium 8.3 mg/dL (8.5-10.5) L 01/01/25 04:44 Phosphorus 2.5 mg/dL (2.5-4.5) 01/01/25 04:44 Magnesium 2.3 mg/dL (1.7-2.3) 01/01/25 04:44 Iron 113 ug/dL (59-158) 12/30/24 16:42 TIBC 261 mcg/dl 12/30/24 16:42 % Saturation 43.2 % (20-50) 12/30/24 16:42 Unsat Iron Binding 148 ug/dL (112-347) 12/30/24 16:42 Total Bilirubin 0.2 mg/dL (0.15-1.2) 01/01/25 04:44 AST 30 U/L (0-40) 01/01/25 04:44 ALT 46 U/L (0-41) H 01/01/25 04:44 Alkaline Phosphatase 87 U/L (40-130) 01/01/25 04:44 Creatine Kinase 78 U/L (39-308) 12/30/24 16:42 Troponin T Baseline 35 ng/L (0-15) H 12/30/24 16:42 Troponin T 120 Minute 27.72 ng/L (0-15) H 12/30/24 18:52 Delta Troponin T -7.28 ABS# (0-10) L 12/30/24 18:52 Troponin T Hi Sens 6Hr 29.86 ng/L (0-15) H 12/30/24 22:10 Troponin T Hi Sens 6Hr Delta -5.14 ng/L (0-12) L 12/30/24 22:10 Total Protein 6.3 g/dL (6.6-8.7) L 01/01/25 04:44 Albumin 3.8 g/dL (3.5-5.2) 01/01/25 04:44 Globulin 2.5 g/dL (1.3-4.6) 01/01/25 04:44 Triglycerides 76 mg/dL (0-150) 12/31/24 05:20 Cholesterol 135 mg/dL (0-200) 12/31/24 05:20 LDL Cholesterol, Calc 59 mg/dL (50-129) 12/31/24 05:20 HDL Cholesterol 61 mg/dL (60-100) 12/31/24 05:20 LDL/HDL Ratio 0.97 RATIO (0.00-3.22) 12/31/24 05:20 Cholesterol/HDL Ratio 2.21 mg/dL (1.0-5.00) 12/31/24 05:20 Vitamin B12 370 pg/mL (232-1245) 12/30/24 16:42 Folate 8.3 ng/mL (4.5-32.2) 12/31/24 05:20 Procalcitonin 1.55 ng/mL (0-0.5) H 12/31/24 05:20 TSH 1.31 uIU/mL (0.27-4.20) 12/30/24 16:42 Ur Random Sodium 24 mmol/L 12/30/24 23:51 Ur Random Potassium 47 mmol/L 12/30/24 23:51 Ur Random Chloride 25 mmol/L 12/30/24 23:51 Urine Opiates Screen Positive ng/mL (Negative) H 12/30/24 23:51 Ur Barbiturates Screen Negative ng/mL (Negative) 12/30/24 23:51 Carbamazepine 11.4 ug/mL (4.0-12.0) 12/30/24 18:54 Ur Phencyclidine Scrn Negative ng/mL (Negative) 12/30/24 23:51 Ur Amphetamines Screen Negative ng/mL (Negative) 12/30/24 23:51 U Benzodiazepines Scrn Negative ng/mL (Negative) 12/30/24 23:51 Urine Cocaine Screen Negative ng/mL (Negative) 12/30/24 23:51 U Marijuana (THC) Screen Negative ng/mL (Negative) 12/30/24 23:51 Vitals Last Vital Signs Temp 97.9 F 01/01/25 07:24 Pulse 77 01/01/25 07:24 Resp 16 01/01/25 07:24 BP 138/68 01/01/25 07:24 Pulse Ox 99 01/01/25 07:24 O2 Del Method Nasal Cannula 01/01/25 07:24 O2 Flow Rate 5 01/01/25 08:00 Discharge Plan Discharge Patient Disposition: Home Health Service Condition: Stable Prescriptions: New magnesium hydroxide [Milk of Magnesia] 400 mg/5 mL Suspension 30 ml PO DAILY PRN (Reason: constipation) Qty: 330 0RF docusate sodium 100 mg Capsule 100 mg PO BID Qty: 30 0RF Continued omega [id number]-fish oil [Fish Oil] 1,000 mg (120 mg-180 mg) capsule 1 cap PO BID carbamazepine 200 mg tablet 600 mg PO BID vitamin E (dl, acetate) 400 unit capsule 180 mg PO DAILY hydrocodone-acetaminophen 10-325 mg tablet 1 - 2 tab PO .Q4-6H PRN (Reason: Pain) oxybutynin chloride 5 mg tablet 5 mg PO DAILY cetirizine 10 mg tablet 10 mg PO DAILY atorvastatin 40 mg tablet 40 mg PO QPM multivitamin Tablet 1 tab PO DAILY ipratropium-albuterol 0.5 mg-3 mg(2.5 mg base)/3 mL solution for nebulization 3 ml inhalation Q4H PRN (Reason: COPD) Breztri Aerosphere 160-9-4.8 mcg/actuation HFA aerosol inhaler 2 inh inhalation BID 30 Days Qty: 10.7 6RF tamsulosin 0.4 mg Capsule 0.4 mg PO QPM artificial tears(hypromellose) 0.3 % Drops 1 drp OPHTHALMIC (EYE) Q4H PRN (Reason: Dry Eye(S)) aspirin 81 mg Tablet,Delayed Release (Dr/Ec) 81 mg PO DAILY Debrox 6.5 % Drops 4 drp OTIC (EAR) .Q30D Hemorrhoidal Ointment 1 applic MO BID PRN (Reason: RECTAL SORENESS) cholecalciferol (vitamin D3) [Vitamin D3] 50 mcg (2,000 unit) Tablet 50 mcg PO DAILY albuterol sulfate 90 mcg/actuation HFA aerosol inhaler 2 inh inhalation Q8H PRN (Reason: BREATHING) clopidogrel 75 mg tablet 75 mg PO DAILY Qty: 90 0RF albuterol sulfate 2.5 mg /3 mL (0.083 %) Solution For Nebulization 2.5 mg INHALATION Q6H PRN (Reason: copd) levalbuterol HCl 0.63 mg/3 mL Solution For Nebulization 0.63 mg INHALATION QID PRN (Reason: copd) valacyclovir 1 gram Tablet 1,000 mg PO TID lidocaine 5 % Adhesive Patch,Medicated 3 patch TOPICAL DAILY Rx Instructions: leave on most painful area for up to 12 hrs gabapentin 100 mg Capsule 100 mg PO TID lisinopril 40 mg Tablet 20 mg PO DAILY camphor-methyl salicyl-menthol Adhesive Patch,Medicated 1 patch TOPICAL Q8H PRN (Reason: Pain) diclofenac sodium 1 % Gel See Rx Instructions .ROUTE .COMPLEX PRN (Reason: Pain) Rx Instructions: Apply 4 g topically to affected area(s) 4 times daily as needed for pain. No more than 16gm/day to any lower extremity joint. No more than 8gm/day to any upper extremity joint. Max 32 gm daily over all joints. cholecalciferol (vitamin D3) [Vitamin D3] 50 mcg (2,000 unit) Tablet 100 mcg PO DAILY naloxone [Narcan] 4 mg/actuation [place],Non-Aerosol See Rx Instructions .ROUTE .COMPLEX PRN (Reason: overdose) Rx Instructions: [place] 1 dose into ONE nostril one time time as needed for opiate overdose. May give additional dose if pt does not respond, alternate nostrils w each dose until help arrives Discharge Order = DC NOW: Discharge Order (Routine); Ordered 01/01/25 Ordered By: Thor Hoffmann Referrals: [facility] [Outside] Willow Plasencia MD [Primary Care Provider, Family Practice] Referral Note: We have notified your physician's clinic of the need for a follow-up appointment to be scheduled. If you have not heard from them within the next 2 business days, please call them directly. Discharge Diet: Usual diet and As Directed Discharge Activity: Resume usual activity and Increase activity as tolerated Patient Instructions: Magnesium Hydroxide (By mouth), Docusate Sodium (By mouth), Acute Kidney Injury (GEN), Opioid Safety, Patient Portal & Maris Instructions Discharge Attestations Time Spent in Discharge Care*: greater than 30 min Specific Discharge Activities: educating patient, educating and/or supporting family/caregiver, discussing with pcp/other providers, discussing with case monitor/social workers/dc planners, documenting/other paperwork and evaluating patient/reviewing data Status at Discharge: Cognitive status at discharge: cognitively intact , Behavioral status at discharge: cooperative , Functional status at discharge: uses cane/walker , Overall status at discharge: patient is back to baseline Quality Metrics Clinical Quality Measures [ No reported AMI, CVA or VTE this stay] Coding Level of Care Code 75775 Total time (in minutes) for Discharge: 65 Diagnoses Syncope R55 Dehydration E86.0 Hyponatremia E87.1 Acute kidney injury N17.9 Constipation K59.00 Opiate use F11.90 Generalized weakness R53.1 Chronic obstructive pulmonary disease J44.9 Essential hypertension I10 Hypertension type: essential hypertension BPH (benign prostatic hyperplasia) N40.0 Bipolar 1 disorder F31.9 History of CVA (cerebrovascular accident) Z86.73
--- NOTE | 2025-01-01 10:37 | PC.CHAP ---
Pastoral Care Encounter/Spiritual Assessment Type of Contact [] Declined veterinary receptionist visit [] Patient/Family/Request visit [] Outpatient visit [] Follow-up visit [] Physician referral [] Code/Alert [] Routine visit [] Staff referral [] Actively dying [x] Patient sleeping [] Family support [] [] Out of room [] Palliative care [] [] Receiving care in room [] Pre-surgical visit [] Trauma [] Long length of stay [] ICU visit [] Other: Relational/Emotional Strength [] Patient feels connected with others/family/visitors/staff [] Distress [] Loneliness/isolation [] Abandonment Spirituality of Patient [] Person of Mary [] Attends Anabaptism of their Mary [] Believes in Prayer [] Reads Bible or Spiritism materials [] There are Spiritual issues to be addressed Project Development Leader Interventions [] Prayer [] Active listening [] Non-anxious presence [] Spiritual/emotional support [] Crisis/trauma care [] Spiritual counseling [] Bereavement support [] Provided bereavement packet [] Provided Bible/devotional materials [] Provided toy/stuffed animal, coloring book to patient or family member [] Provided Communion [] Anointing/[place] [] Salvation [] Completed spiritual assessment [] Other: Impact on Illness or Injury [] Angry [] Fearful [] Anxious [] Often cries [] Exhaustion [] Unable to work [] Unable to attend protestant [] Unable to walk/stand [] Unable to read [] Unable to drive [] Unable to eat/drink [] Unable to sleep [] Unable to be with family [] Patient intubated [] Other: Summary Time spent with patient
--- NOTE | 2025-01-01 10:41 | PC.NURSE ---
This nurse called son, Christopher, to inform him that pt was being discharged and was ready to be picked up at any time. No answer. Left message.
[2025-01-01 11:22] VITALS: BP 171/92; PULSE 98; RESP 19; TEMP 36.6; O2SAT 96
== END 2025-01-01 11:41 | disposition home health service (06) | DRG 683 ==
LOC: ER 18:57 → MEDSURG 19:45
PROVIDERS: Family Medicine; Student in an Organized Health Care Education/Training Program; Admitting Provider Student in an Organized Health Care Education/Training Program; Emergency Provider Emergency Medicine; PCP Family Medicine; Visit Provider Student in an Organized Health Care Education/Training Program
DX: N17.9 Acute kidney failure, unspecified (principal); E87.1 Hypo-osmolality and hyponatremia; E86.0 Dehydration; K59.00 Constipation, unspecified; I10 Essential (primary) hypertension; N40.0 Benign prostatic hyperplasia without lower urinary tract symptoms; F31.9 Bipolar disorder, unspecified; R55 Syncope and collapse; N52.9 Male erectile dysfunction, unspecified; Z79.891 Long term (current) use of opiate analgesic; Z79.51 Long term (current) use of inhaled steroids; Z79.82 Long term (current) use of aspirin; Z79.02 Long term (current) use of antithrombotics/antiplatelets; Z86.73 Personal history of transient ischemic attack (TIA), and cerebral infarction without residual deficits; Z87.891 Personal history of nicotine dependence
CPT/HCPCS: 36415; 71045; 74176; 80048; 80053; 80061; 80156; 80306; 82436; 82550; 82607; 82746; 83036; 83540; 83550; 83605; 83735; 84100; 84133; 84145; 84300; 84443; 84484; 85025; 86403; 93005; 96360; 96361; 96372; 97116; 97161; 97530; 99285; J1644; J2470; J7030; J9999